=== PATIENT | female | born 1950 | race Caucasian/White ===

== ENCOUNTER 2018-02-27 04:51 | Emergency (ER) | payer MEDICARE, BC, SELFPAY ==
[2018-02-27 04:53] VITALS: BP 152/82; PULSE 88; RESP 16; TEMP 37; O2SAT 96; BMI 29.1
[2018-02-27 05:39] LABS: Glucose, Dipstick Normal (Normal); Ketone-Dipstick Negative (Negative); Leukocyte Esterase-Dipstick 500 /ul (Negative); Mucous, Urine 0 SEEN /hpf (<or=2+); Nitrite-Dipstick Positive (Negative); Occult Blood-Urine 250 /ul (Negative); Protein-Dipstick 100 mg/dl (Negative); Specific Gravity, Urine 1.015 (1.002-1.030); Squamous Epithelial Cells - UA 0 SEEN /hpf (5-10); Urine Clarity Sl. Cloudy (Clear); Urine Urobilinogen 8 mg/dl (Normal)
--- NOTE | 2018-02-27 05:39 | ED.VISSUMM ---
- ER Visit Summary Date of Service: 02/27/18 Chief Complaint: Dysuria History of Present Illness: The patient is a 67 F who presents for 2 days of dysuria. Patient began having dysuria, frequency and urgency 2 days ago. She is now also noting hematuria. She denies fever, back pain, abdominal pain, nausea or vomiting. No vaginal bleeding or discharge. Patient denies remembering ever having a UTI before. She has no medical problems and is on no medications. She has been taking Tylenol, cranberry supplements, and Azo without improvement of her symptoms. She does not smoke. Physical Examination: Vital signs: afebrile, hemodynamically stable, no hypoxia on room air General: well nourished, well developed, in no distress Skin: warm, dry, no rash, no pallor HEENT: normocephalic and atraumatic; PERRL, EOMI, moist mucous membranes Cardiovascular: regular rate and rhythm without murmurs, no peripheral edema, 2+ pulses all distal extremities Respiratory: No increased work of breathing, lungs are clear to auscultation bilaterally, no rales, rhonchi or wheezing Abdominal: Abdomen is soft, nontender with normoactive bowel sounds, no guarding or rebound, no masses, no suprapubic tenderness MSK: Moves all extremities, no deformities, normal strength Neuro: Awake and alert, oriented ?4. No facial droop, sensation and motor function intact and symmetric Test Results: Abnormal Lab Results 02/27/18 05:06 Urine Color SEE COMMENT BELOW Urine Clarity Sl. Cloudy Urine pH 6.0 Ur Specific [place] 1.015 Urine Protein 100 H Urine Glucose (UA) Normal Urine Ketones Negative Urine Occult Blood 250 H Urine Nitrite Positive H Urine Bilirubin 3 H Urine Urobilinogen 8 H Ur Leukocyte Esterase 500 H Urine RBC 25-50 SEEN Urine WBC >100 SEEN Ur Squamous Epith Cells 0 SEEN Urine Bacteria RARE Urine Mucus 0 SEEN Medications Given Discontinued Medications Cephalexin (Keflex) 500 mg PO X1 ONE Stop: 02/27/18 06:00 Emergency Department Course and Treatment: Patient's presentation is concerning for acute cystitis. Urinalysis was performed. It was positive for urinary tract infection. Patient had no other symptoms or findings on exam that would be concerning for pyelonephritis. Patient was placed on Keflex. Culture pending. Patient discharged home. Treatment Plan: [] Disposition: [] Impression: Acute cystitis This note was generated with [employer] dictation software. It may contain incorrect words, spelling, and punctuation that were not noted in review of the chart prior to signing ED Disposition - Plan for ED Patient: Disposition: Home or Assisted Living Chief Complaint: Complaint Instructions: ED UTI Cystitis Female Prescriptions: Cephalexin [Keflex] 500 mg PO Q12 #14 cap Referrals: Emerson Dotson DO [Primary Care Provider] - 3-5 Days if not improving Additional Instructions: Take the entire seven days of antibiotic as prescribed unless told to stop by your doctor. If you have any worsening of your condition or any new concerning symptoms, please return immediately to the emergency department for another evaluation.
[2018-02-27 05:40] LABS: Color, Urine SEE COMMENT BELOW (Yellow); Urine Bilirubin Dipstick 3 mg/dL (Negative)
[2018-02-27 05:53] LABS: Red Blood Cells-Urine 25-50 SEEN /hpf (0-5); White Blood Cells >100 SEEN /hpf (0-5)
[2018-02-27 05:57] LABS: Bacteria RARE /hpf (None Seen)
--- NOTE | 2018-02-27 05:58 | ED.DEP ---
ED Disposition - Plan for ED Patient: Disposition: Home or Assisted Living Chief Complaint: Complaint Instructions: ED UTI Cystitis Female Prescriptions: Cephalexin [Keflex] 500 mg PO Q12 #14 cap Referrals: Emerson Dotson DO [Primary Care Provider] - 3-5 Days if not improving Additional Instructions: Take the entire seven days of antibiotic as prescribed unless told to stop by your doctor. If you have any worsening of your condition or any new concerning symptoms, please return immediately to the emergency department for another evaluation.
[2018-02-27] MEDS: Cephalexin 250 MG Capsule 500 MG PO (06:08)
[2018-02-27 06:10] VITALS: BP 122/70; PULSE 74; RESP 16; O2SAT 98
== END 2018-02-27 06:11 | disposition home or self-care (01) ==
PROVIDERS: Emergency Provider Emergency Medicine; Family Provider Family Medicine; PCP Family Medicine
DX: N30.01 Acute cystitis with hematuria (principal)
CPT/HCPCS: 81001; 87086; 87088; 87186; 99283

== ENCOUNTER → 2020-11-25 13:25 | Outpatient (CLI) | payer MEDICARE, BC, SELFPAY | PROVIDERS: PCP Family Medicine; Referring Provider Family Medicine; Visit Provider Family Medicine | DX: Z20.828 Contact with and (suspected) exposure to other viral communicable diseases (principal) | CPT/HCPCS: 87635; U0005; U0003 ==

== ENCOUNTER → 2023-02-15 | Outpatient (CLI) | payer MEDICARE, OTHER, SELFPAY | END | disposition home or self-care (01) | PROVIDERS: PCP Family Medicine; Referring Provider Physician Assistant Surgical; Visit Provider Physician Assistant Surgical | DX: N39.0 Urinary tract infection, site not specified (principal) | CPT/HCPCS: 87077; 87086; 87088; 87186 ==

== ENCOUNTER → 2023-06-19 | Outpatient (CLI) | payer MEDICARE, OTHER, SELFPAY | END | disposition home or self-care (01) | LOC: LABSPEC 10:11 | PROVIDERS: PCP Family Medicine; Referring Provider Physician Assistant; Visit Provider Physician Assistant | DX: N39.0 Urinary tract infection, site not specified (principal) | CPT/HCPCS: 87086; 87088 ==

== ENCOUNTER → 2023-11-30 | Outpatient (CLI) | payer MEDICARE, OTHER, SELFPAY | END | disposition home or self-care (01) | LOC: LABSPEC 14:32 | PROVIDERS: PCP Family Medicine; Visit Provider Physician Assistant | DX: N39.0 Urinary tract infection, site not specified (principal) | CPT/HCPCS: 87086; 87088 ==

== ENCOUNTER → 2024-04-13 | Outpatient (CLI) | payer MEDICARE, OTHER, SELFPAY | END | disposition home or self-care (01) | LOC: LABSPEC 16:57 | PROVIDERS: PCP Family Medicine; Visit Provider Physician Assistant | DX: R30.0 Dysuria (principal) | CPT/HCPCS: 87086; 87088 ==

== ENCOUNTER → 2024-06-01 | Outpatient (CLI) | payer MEDICARE, OTHER, SELFPAY ==
--- NOTE | 2024-06-01 15:51 | US_ITS ---
PROCEDURE: KIDNEY AND BLADDER 06/01/2024 REASON FOR EXAM: UTI TECHNIQUE: Bilateral renal ultrasound. COMPARISON: None FINDINGS: Kidneys: Normal in size, position and shape. [place]: Mild left-sided hydronephrosis. Cysts or Masses: None Other: None RIGHT Kidney Size: 11.6 x 5.2 x 4.9 cm Cortical Thickness (if discernible): 1.0 (>6mm is normal) LEFT Kidney Size: 11.2 x 5.1 x 5.4 cm Cortical Thickness (if discernible): 1.0 (>6mm is normal) The distended urinary bladder volume was measured at 124.3 mL. Postvoid volume was 9.6 mL. Bladder wall thickness: 2.7 mm. Bilateral ureteral jets were seen. US/Kidney and Bladder IMPRESSION: Mild left-sided hydronephrosis. Reading Location: [place] [id number]
== END | disposition home or self-care (01) ==
LOC: US 15:45
PROVIDERS: PCP Family Medicine; Referring Provider Urology; Visit Provider Urology
DX: N39.0 Urinary tract infection, site not specified (principal)
CPT/HCPCS: 76770

== ENCOUNTER → 2024-06-18 | Outpatient (CLI) | payer MEDICARE, OTHER, SELFPAY ==
--- NOTE | 2024-06-18 15:00 | CT_ITS ---
PROCEDURE: CT ABD/PELVIS W/WO CONTRAST 06/18/2024 REASON FOR EXAM: HYDRONEPHROSIS TECHNIQUE: Triple phase CT imaging of the abdomen and pelvis was obtained with and without intravenous contrast. Coronal and Sagittal reconstruction series were provided. PATIENT PREPARATION: Per protocol ORAL CONTRAST TYPE: None. CONTRAST: Isovue-300 VOLUME: 100 mL One or more dose reduction techniques were used (e.g., Automated exposure control, adjustment of the mA and/or kV according to patient size, use of iterative reconstruction technique. RADIATION DOSE SUMMARY: CTDlvol: 75 mGy DLP: 5000 mGycm COMPARISON: Renal ultrasound 06/01/2024. FINDINGS: Lung bases: Small sub-5 mm bilateral pulmonary nodules (for example within the right lower lobe series 3, image 12). The heart is normal in size with trace pericardial effusion. Coronary artery calcifications. Liver: The liver is normal in size with small hepatic cyst. The major portal veins are patent. No biliary ductal dilation. Gallbladder: No radiopaque stones within the gallbladder. Spleen: Normal size. Pancreas: The pancreas is unremarkable. Adrenals: Left adrenal gland thickening/small mass compatible with adenoma. Kidneys: Nonobstructing bilateral renal calculi. Small bilateral renal cysts and parapelvic cysts. No hydronephrosis. Contrast opacifies the bilateral renal collecting systems and urinary bladder on delayed imaging. Bladder: Minimally distended and unremarkable. Reproductive Organs: Mild thickening of the endometrium, measuring approximately 0.8 cm. Normal uterine size and contour. Ovaries are unremarkable. Bowel: The bowel loops are normal in caliber. No ascites or pneumoperitoneum. Normal appendix. Mild distal colonic diverticulosis. Lymph nodes: No suspicious lymph node enlargement. Vasculature: Moderate atherosclerotic plaque throughout the aortoiliac vessels. Bones: Thoracolumbar spondylosis. Chronic fracture deformity or heterotopic ossification along the left ischial tuberosity. Sclerotic lesion within the left inferior sacral body, likely an osteochondroma. CT/CT Abd/Pelvis W/WO Contrast IMPRESSION: 1. No hydronephrosis. Nonobstructing bilateral renal calculi. 2. Mild endometrial thickening, measuring 0.8 cm. Correlation with patient's s ymptoms is recommended and if clinically indicated, pelvic ultrasound could be obtained. 3. Small bilateral pulmonary nodules, likely noncalcified granulomas or scarrin g. If patient is high risk, optional CT chest in 12 months could be obtained to evaluate for stability. Reading Location: [id number]
== END | disposition home or self-care (01) ==
LOC: CT 14:38
PROVIDERS: PCP Family Medicine; Referring Provider Urology; Visit Provider Urology
DX: N13.30 Unspecified hydronephrosis (principal)
CPT/HCPCS: 74178; Q9967; A4216

== ENCOUNTER → 2024-06-24 | Outpatient (CLI) | payer MEDICARE, OTHER, SELFPAY ==
--- NOTE | 2024-06-24 14:54 | RAD_ITS ---
PROCEDURE: ABDOMEN SINGLE VIEW 06/24/2024 REASON FOR EXAM: KUB- KIDNEY STONE TECHNIQUE: Single view abdomen. 2 total images to include the entire abdomen and pelvis FINDINGS: Small calcification seen over the upper pole of the right renal shadow may represent renal stone. Bowel gas pattern appears nonspecific. Visualized lung bases appear clear. Right hip osteoarthrosis. Heterotopic bone formation left hip. Lower lumbar facet degenerative change RAD/Abdomen Single View IMPRESSION: Small calcification seen over the upper pole of the right renal shadow may repr esent renal stone. Reading Location: [id number]
== END | disposition home or self-care (01) ==
LOC: MTRAD 14:53
PROVIDERS: PCP Family Medicine; Referring Provider Urology; Visit Provider Urology
DX: N20.0 Calculus of kidney (principal)
CPT/HCPCS: 74018

== ENCOUNTER → 2024-06-26 | Outpatient (CLI) | payer MEDICARE, OTHER, SELFPAY | END | disposition home or self-care (01) | LOC: LABSPEC 11:30 | PROVIDERS: PCP Family Medicine; Referring Provider Obstetrics & Gynecology; Visit Provider Obstetrics & Gynecology | DX: Z12.4 Encounter for screening for malignant neoplasm of cervix (principal) | CPT/HCPCS: 87624; 88175; G0145 ==

== ENCOUNTER → 2024-06-29 | Outpatient (CLI) | payer MEDICARE, OTHER, SELFPAY ==
--- NOTE | 2024-06-29 16:25 | US_ITS ---
PROCEDURE: PELVIC (NON ) 06/29/2024 REASON FOR EXAM: ENDOMETRIAL THICKENING Patient is postmenopausal. TECHNIQUE: Transabdominal pelvic ultrasound COMPARISON: None FINDINGS: Measurements: Uterus: 7.4 cm x 4 cm x 2.7 cm with a volume of 42.4 mL Endometrial Thickness: 7 mm. It is hyperechoic. Right Ovary: Not visualized. Left Ovary: Not visualized. Uterus: Normal size, myometrial echotexture, and contour. Endometrium: Endometrium measures 7 mm. This is abnormal for the postmenopausal state. Clinical correlation recommended. Right ovary: Not visualized. Left ovary: Not visualized. Other: No large pelvic mass identified. US/Pelvic (Non ) IMPRESSION: Endometrium is thickened measuring 7 mm. Clinical correlation recommended. Reading Location: [id number]
== END | disposition home or self-care (01) ==
PROVIDERS: PCP Family Medicine; Referring Provider Urology; Visit Provider Urology
DX: R93.89 Abnormal findings on diagnostic imaging of other specified body structures (principal)
CPT/HCPCS: 76856

== ENCOUNTER → 2024-10-21 | Outpatient (CLI) | payer MEDICARE, OTHER, SELFPAY ==
--- NOTE | 2024-10-21 09:52 | STEWCON_ITS ---
Reason For Study Reason For Study: ABN EKG, CAD Stress Results Protocol: ANGELO WITH DEFINITY Maximum Predicted HR: 148 bpm Target HR: 126 bpm % Maximum Predicted HR: 92 % DurationHeart Rate Stage (mm:ss) (bpm) BP Comment BASELINE 68 132/804 CC DEFINITY STAGE 1 3:00 115 184/80 STAGE 2 3:00 134 186/82 STAGE 3 0:10 136 / RECOVERY 86 140/89 Stress Duration: 6:10 mm:ss Maximum Stress HR: 136 bpm Baseline Echocardiogram Findings The left ventricular ejection fraction is 65 %. Stress Echo Wall motion Data Resting WM Intermediate WM Stress WM Resting Wall Motion Wall Motion Stress No regional wall motion abnormalities All segments Hyperkinetic. noted. EKG Data Baseline ECG normal sinus rhythm with nonspecific ST changes. Stress ECG with sinus tachycardia. Nondiagnostic for ischemia secondary to baseline abnormalities. Occasional PVCs during exercise and in recovery. ECHO/Stress Test Echo W/Contrast Interpretation Summary The resting left ventricular ejection fraction is 65 %. Postexercise, all wall segments hyperdynamic. Poststress LVEF more than 75%. No regional wall motion abnormality Negative exercise stress echo for ischemia. Stress ECG with sinus tachycardia. Nondiagnostic for ischemia secondary to base line abnormalities. Occasional PVCs during exercise and in recovery. Ordering Physician: Emerson Dotson Referring Physician: Emerson Dotson Performed By: Lorenza Del Cid RDCS
== END | disposition home or self-care (01) ==
LOC: CVS 09:50
PROVIDERS: PCP Family Medicine; Referring Provider Family Medicine; Visit Provider Family Medicine
DX: I25.10 Atherosclerotic heart disease of native coronary artery without angina pectoris (principal); R94.31 Abnormal electrocardiogram [ECG] [EKG]
CPT/HCPCS: 93017; 93350; Q9957; A4216; C8928

== ENCOUNTER 2024-11-05 05:50 | Day surgery (SDC) | payer MEDICARE, OTHER, SELFPAY ==
--- NOTE | 2024-09-10 12:47 | EKG12_ITS ---
Test Reason : PRE OP Blood Pressure : */* mmHG Vent. Rate : 58 BPM Atrial Rate : 58 BPM P-R Int : 140 ms QRS Dur : 80 ms QT Int : 436 ms P-R-T Axes : 58 15 33 degrees QTcB Int : 428 ms Sinus bradycardia Possible Left atrial enlargement Nonspecific ST abnormality Abnormal ECG Confirmed by VINCENT QURESHI, ORTIZ ([id number]), photographic editor JAIMIE GARCIA ([id number]) on 09/11/2024 1:18:27 PM Referred By: Kaylyn Egan Confirmed By: ORTIZ KAUR MD
[2024-09-10 13:29] LABS: Hematocrit 42.1 % (37-47); Hemoglobin 13.9 g/dL (12.0-15.0); Mean Corp Hgb Conc 33.0 g/dL (32-36); Mean Corpuscular Volume 83.9 fL (81-99); Mean Platelet Vol. 10.5 fl (6.2-12.0); Platelet Count 236 K/mm3 (150-450); RBC Distribution Width CV 13.6 % (11.6-14.6); RBC Distribution Width SD 41.9 fl (35.1-43.9); Red Blood Count 5.02 M/mm3 (4.2-5.4); White Blood Count 8.3 K/mm3 (4.4-11.0)
[2024-09-10 14:11] LABS: Anion Gap 11 (5-15); BUN 16 mg/dL (4-19); BUN/Creat Ratio 25.6 RATIO (10-20); Calcium,Total 9.8 mg/dL (7.6-11.0); Carbon Dioxide 24.2 mmol/L (21.0-32.0); Chloride 102 mmol/L (98-108); Glucose 111 mg/dL (70-99); Potassium 4.6 mmol/L (3.3-5.1)
--- NOTE | 2024-09-10 19:16 | PAT.ANESEVAL ---
Pre-Assessment Diagnosis/Proposed Procedure Planned Operative Procedure(s): HYSTEROSCOPY D&C PER DR PAYTON RIGHT ESWL POSS CYSTO WITH RETROGRADES PER DR LUCAS Anesthesia History Anesthesia History - occupational therapy assist: Anesthesia History - occupational therapy assist Hx Hospitalization No 09/10/24 09:08 Any Problems With Anesthesia No 09/10/24 09:08 Cholinesterase deficiency No 09/10/24 09:08 You/Your Family Experience No 09/10/24 09:08 fever (hyperthermia) with Relationship Recent Exposure to Contagious Disease Does patient have nerve No 09/10/24 09:08 stimulator Patient instructed to have device shut off --Does patient have Pacemaker or ICD? When Was Last Pacemaker Check QUESTION #4 FULL TEXT: You/Your Family Experience fever (hyperthermia) with Anesthesia Last Oral Intake Last Oral intake: Last Oral Intake NPO since Meds taken in AM with sips of water? Meds patient instructed to take am of surgery PONV PONV - occupational therapy assist: PONV - occupational therapy assist Female Yes 09/10/24 09:08 HX of Motion Sickness No 09/10/24 09:08 HX of N/V After Surgery No 09/10/24 09:08 Non-Smoker Yes 09/10/24 09:08 Duration of Surgery greater Yes 09/10/24 09:08 than 60 minutes Number of Risk Factors 3 09/10/24 09:08 PONV Score Moderate Risk 09/10/24 09:08 Height & Weight Height & Weight: Anesthesia: Height & Weight Height 5 ft 7 in 06/26/24 09:15 Respiratory Assessment Respiratory Assessment - occupational therapy assist: Respiratory Tract Infection Hx - occupational therapy assist Hx Respiratory Tract Infection No 09/10/24 09:08 STOP Sleep Apnea STOP Sleep Apnea - occupational therapy assist: STOP Sleep Apnea - occupational therapy assist Hx Hypertension No 09/10/24 09:08 Hx Sleep Apnea No 09/10/24 09:08 CPAP BIPAP Do you snore loudly (louder No 09/10/24 09:08 than talking or can be heard Do you often feel tired/ Yes 09/10/24 09:08 fatigued/ sleepy during daytime? Has anyone observed you stop No 09/10/24 09:08 breathing during sleep? STOP Results Negative 09/10/24 09:08 QUESTION #5 FULL TEXT : Do you snore loudly (louder than talking or can be heard through closed doors)? 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 Specify any problems Hx of Preganancy in last 3 No 09/10/24 09:08 Months Nurse Filling Out Transfusion DSCHRIBER 09/10/24 09:08 & Questions: Date: 09/10/24 09/10/24 09:08 Time: 09:10 09/10/24 09:08 Patient unable to answer at this time (ie. confused, unrespo /Reproduction History /Reproductive History - occupational therapy assist: /Reproductive Hx- occupational therapy assist Hx Now No 09/10/24 09:08 Gestational Age (in weeks): EDC: Hx Hx Para Hx Section SAB No 09/10/24 09:08 PFSH Medical History Wears glasses Post-menopausal Bladder disease Back pain Gastric reflux Non-smoker Home Medications ?Medication ?Instructions ?Recorded ?Last Taken ?Type estradiol 0.01% (0.1 mg/gram) 1 g vaginal 3XW 06/26/24 Unknown History vaginal cream solifenacin 5 mg tablet 5 mg PO QDAY 06/26/24 Unknown History Lactobacillus acidophilus 250 500 mmu cells PO DAILY 09/10/24 Unknown History million cell capsule (Probiotic Acidophilus) ascorbic acid (vitamin C) 500 mg 500 mg PO DAILY 09/10/24 Unknown History chewable tablet (C-500) Allergy/AdvReac Type Severity Reaction Status Date / Time No Known Allergies Allergy Verified 09/10/24 09:05 Family History Mother Heart disease Father History of kidney cancer Surgical History (Updated 09/10/24 @ 09:15 by Madeline Mercado) Hx of tonsillectomy Social History (Updated 06/26/24 @ 10:47 by Julia Teixeira) number of children: 0 Smoking Status: Never smoker alcohol intake: current Alcohol type: wine seatbelt use: always do you feel safe at home: Yes additional social history: Audit: Pertinent Findings Pertinent Findings EKG Perinent findings: 09/10/24: Sinus bradycardia with nonspecific ST abnormality Recommendation Anesthesia Recommendation Anesthesia recommendation: OPTIMIZED for anesthesia
--- NOTE | 2024-10-28 16:20 | PAT.ANESEVAL ---
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 When Was Last Pacemaker Check QUESTION #4 FULL TEXT: You/Your Family Experience fever (hyperthermia) with Anesthesia Last Oral Intake Last Oral intake: Last Oral Intake NPO since Meds taken in AM with sips of water? 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 Female Yes 10/28/24 08:55 HX of Motion Sickness No 10/28/24 08:55 HX of N/V After Surgery No 10/28/24 08:55 Non-Smoker Yes 10/28/24 08:55 Duration of Surgery greater Yes 10/28/24 08:55 than 60 minutes Number of Risk Factors 3 10/28/24 08:55 PONV Score Moderate Risk 10/28/24 08:55 Height & Weight Height & Weight: Anesthesia: Height & Weight Height 5 ft 7 in 10/26/24 09:03 Respiratory Assessment Respiratory Assessment - supervisor core shop: Respiratory Tract Infection Hx - supervisor core shop Hx Respiratory Tract Infection No 10/28/24 08:55 STOP Sleep Apnea STOP Sleep Apnea - supervisor [employer]: STOP Sleep Apnea - supervisor core shop Hx Hypertension Yes: CONTROLLED WITH MED 10/28/24 08:55 Hx Sleep Apnea No 10/28/24 08:55 CPAP BIPAP Do you snore loudly (louder No 10/28/24 08:55 than talking or can be heard Do you often feel tired/ Yes 10/28/24 08:55 fatigued/ sleepy during daytime? Has anyone observed you stop No 10/28/24 08:55 breathing during sleep? STOP Results Positive 10/28/24 08:55 QUESTION #5 FULL TEXT : Do you snore loudly (louder than talking or can be heard through closed doors)? 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 Specify any problems Hx of Preganancy in last 3 No 10/28/24 08:55 Months Nurse Filling Out Transfusion DSCHRIBER 10/28/24 08:55 & Questions: Date: 10/28/24 10/28/24 08:55 Time: 08:55 10/28/24 08:55 Patient unable to answer at this time (ie. confused, unrespo /Reproduction History /Reproductive History - supervisor core shop: /Reproductive Hx- supervisor core shop Hx Now No 10/28/24 08:55 Gestational Age (in weeks): EDC: Hx Hx Para Hx Section SAB No 10/28/24 08:55 PFSH Medical History Hypertension History of stress test Vaginal atrophy Wears glasses Post-menopausal Bladder disease Back pain Gastric reflux Non-smoker Home Medications ?Medication ?Instructions ?Recorded ?Last Taken ?Type estradiol 0.01% (0.1 mg/gram) 1 g vaginal 3XW 06/26/24 Unknown History vaginal cream solifenacin 5 mg tablet 5 mg PO QDAY 06/26/24 Unknown History Lactobacillus acidophilus 250 500 mmu cells PO DAILY 09/10/24 Unknown History million cell capsule (Probiotic Acidophilus) ascorbic acid (vitamin C) 500 mg 500 mg PO DAILY 09/10/24 Unknown History chewable tablet (C-500) amlodipine 10 mg tablet 10 mg PO QDAY 10/28/24 Unknown History Allergy/AdvReac Type Severity Reaction Status Date / Time No Known Allergies Allergy Verified 10/28/24 08:53 Family History Mother Heart disease Father History of kidney cancer Surgical History Hx of tonsillectomy Social History number of children: 0 Smoking Status: Never smoker alcohol intake: current Alcohol type: wine substance use type: does not use what type of physical activity do you participate in: none seatbelt use: always do you feel safe at home: Yes additional social history: Audit: Pertinent Findings HISTORY of Pertinent Findings History of Pertinent Findings: EKG Pertinent Findings EKG Perinent findings 09/10/24: Sinus bradycardia 09/10/24 19:[address] abnormality Pertinent Findings EKG Perinent findings: EKG 09/24/2024. Sinus bradycardia. Stress test pertinent findings: Stress echo 10/21/2024. Left ventricular ejection fraction 65%. Negative exercise stress echo for ischemia. Stress EKG with sinus tachycardia. Occasional PVCs during exercise and in recovery. Recommendation Anesthesia Recommendation Anesthesia recommendation: OPTIMIZED for anesthesia
[2024-11-05] VITALS (9 sets, daily range): BP systolic 115–142; BP diastolic 58–79; PULSE 67–77; RESP 16–18; TEMP 36.1–36.6; O2SAT 86–99; BMI 33.8
--- OUTSIDE RECORDS SUMMARY | 2024-11-05 05:53 | XMS RPT_ITS | CCD ---
Author Organization [facility] Care Team Providers Care Fish Header Name Role Phone Dr. Emerson Dotson Primary Care Provider [phone] Dr. Emerson Dotson Referring Provider VALERIE Fuller Attending Provider Dr. Emerson Dotson Primary Care Provider [phone] Dr. Emerson Dotson Referring Provider VALERIE Mcdowell Attending Provider Dr. Emerson Dotson DO Primary Care Provider Dr. Emerson Dotson DO Referring Provider Harshal Mcdowell Attending Provider [phone] Emerson Dotson DO Primary Care Provider Mauri HERNANDEZ, Dr. Norman Referring Provider Harshal Mcdowell Attending Provider [phone] Dr. Kaylyn Egan MD Attending Provider Dr. Kaylyn Egan MD Referring Provider Dr. Debbie Farfan MD Attending Provider Dr. Debbie Farfan MD Referring Provider Dr. Debbie Farfan MD Other Provider Dr. Emerson Dotson DO Primary Care Provider [phone] Jignesh QURESHI, Dr. Patiño Attending Provider Dr. Kaylyn Egan MD Referring Provider Mauri DO, Dr. Norman Referring Provider [phone] Dr. Vesta Flanagan DO Attending Provider Layla QURESHI, Dr. Carrizales Attending Provider Mauri HERNANDEZ, Dr. Norman Primary Care Provider Jignesh QURESHI, Dr. Patiño Attending Provider Jignesh QURESHI, Dr. Patiño Referring Provider Mauri HERNANDEZ, Dr. Norman Referring Provider [phone] Mauri HERNANDEZ, Dr. Norman Attending Provider [phone] Tao QURESHI, Dr. Mckenna Attending Provider Vesta Flanagan Consulting Unavailabl e Mauri, Emerson Primary Care Unavailable Kaylyn Egan Referring Unavailable Kaylyn Egan Attending Unavailable Mauri, Emerson Attending Unavailable Mauri, Emerson Primary Care Unavailable Mauri, Emerson Referring Unavailable Bala Burger Attending Unavailable Mauri, Emerson Primary Care Unavailable Mauri, Emerson Primary Care Unavailable Mauri, Emerson Referring Unavailable Harshal Mcdowell Attending Unavailable Mauri, Emerson Primary Care Unavailable Mauri, Emerson Referring Unavailable WyneskiKaylyn Attending Unavailable Mauri, Emerson Primary Care Unavailable Mauri, Emerson Referring Unavailable Tannre Harper Attending Unavailable Mauri, Emerson Primary Care Unavailable Mauri, Emerson Referring Unavailable Kaylyn Egan Attending Unavailable Vesta Flanagan Attending Unavailabl e Mauri, Emerson Primary Care Unavailable Mauri, Emerson Referring Unavailable Mauri, Emerson Primary Care Unavailable Mauri, Emerson Referring Unavailable Helenony, Debbie Attending Unavailable Mauri, Emerson Primary Care Unavailable Kaylyn Egan Referring Unavailable Sofie Rich Attending Unavailabl e Mauri, Emerson Primary Care Unavailable Kaylyn Egan Attending Unavailable Kaylyn Egan Referring Unavailable Debbie Farfan Consulting Unavailable Mauri, Emerson Primary Care Unavailable Kaylyn Egan Attending Unavailable Kaylyn Egan Referring Unavailable Mauri, Emerson Primary Care Unavailable WynesKaylyn moser Attending Unavailable Wyneski, Kaylyn Referring [facility] Unavailable Harshal Mcdowell Attending Unavailable Tanner Harper Attending Unavailable [facility] Primary Care Unavailable [facility] Primary Care Unavailable Kaylyn Egan Attending Unavailable Kaylyn Egan Referring [facility] Unavailable Debbie Farfan Referring Unavailable Debbie Farfan Attending Unavailable Medications Current Medications Medication Drug Class(es) Dates Sig (Normalized) Sig (Original) amLODIPine 10 mg oral tablet (2 sources) Dihydropyridine Calcium Channel Mariana Start: 10-28-2024 take 1 tablet by mouth once daily Amlodipine 10 mg tablet Active 10 mg PO daily October 28, 2024 12:00am ascorbic acid 500 mg chewable tablet (4 sources) Vitamin C Start: 09-10-2024 take 1 tablet by mouth once daily Ascorbic Acid (Vitamin C) (C-500) 500 mg tablet,chewable Active 500 mg PO DAILY September 10, 2024 12:00am estradiol 0.1 mg/ml vaginal cream (7 sources) Estrogen Start: 06-26-2024 Estradiol 0.01 % (0.1 mg/gram) cream Active 1 g VAGINAL 3 TIMES A WEEK June 26, 2024 12:00am lactobacillus acidophilus 1.5 mg oral capsule (4 sources) Start: 09-10-2024 Lactobacillus Acidophilus (Probiotic Acidophilus) 250 million cell capsule Active 500 NMA PO DAILY September 10, 2024 12:00am solifenacin succinate 5 mg oral tablet (7 sources) Cholinergic Muscarinic Antagonist Start: 06-26-2024 take 1 tablet by mouth once daily Solifenacin 5 mg tablet Active 5 mg PO daily June 26, 2024 12:00am Completed/Discontinued Medications Medication Drug Class(es) Dates Sig (Normalized) Sig (Original) acetaminophen 500 mg oral tablet (7 sources) Start: 06-26-2024 End: 09-10-2024 take 1 tablet by mouth every six hours as needed Acetaminophen (Tylenol Extra Strength) 500 mg tablet Discontinued 500 mg PO EVERY 6 HOURS as needed June 26, 2024 12:00am September 10, 2024 9:05am benzonatate 200 mg oral capsule (11 sources) Non-narcotic Antitussive Start: 01-25-2019 End: 07-08-2021 take 1 capsule by mouth three times daily as needed for cough Benzonatate 200 mg capsule Discontinued 200 mg PO THREE TIMES A DAY as needed for cough 30 0 January 25, 2019 1:00am July 08, 2021 9:06am cephalexin 500 mg oral capsule (11 sources) Cephalosporin Antibacterial Start: 02-27-2018 End: 01-25-2019 take 1 capsule by mouth every twelve hours Cephalexin 500 MG capsule Discontinued 500 mg PO EVERY 12 HOURS 14 0 February 27, 2018 1:00am January 25, 2019 10:20am clindamycin 150 mg oral capsule (11 sources) Lincosamide Antibacterial Start: 07-08-2021 End: 11-17-2021 Clindamycin Hcl 150 mg capsule Discontinued NMA PO July 08, 2021 12:00am November 17, 2021 8:28am Start: 07-08-2021 End: 11-17-2021 Clindamycin Hcl Discontinued CAP PO July 08, 2021 12:00am November 17, 2021 8:28am methylPREDNISolone 4 mg oral tablet (11 sources) Corticosteroid Start: 01-25-2019 End: 02-02-2019 take 1 tablet by mouth once Methylprednisolone (Medrol (Ernie)) 4 mg tablets,dose pack Discontinued 0 PO per package directions 21 0 January 25, 2019 1:00am February 02, 2019 5:01pm PO PER PKG DIR nitrofurantoin, macrocrystals 25 mg / nitrofurantoin, monohydrate 75 mg oral capsule (20 sources) Nitrofuran Antibacterial Start: 04-13-2024 End: 04-18-2024 take 1 capsule by mouth every twelve hours at mealtime Nitrofurantoin Monohyd/M-Cryst (Macrobid) 100 mg capsule Discontinued 100 mg PO Q12H 10 5 0 April 13, 2024 1:00am April 17, 2024 1:00am April 18, 2024 1:23am must administer with a meal/food Start: 11-30-2023 End: 12-05-2023 take 1 capsule by mouth every twelve hours at mealtime Nitrofurantoin Monohyd/M-Cryst (Macrobid) 100 mg capsule Discontinued 100 mg PO Q12H 10 5 0 November 30, 2023 12:00am December 04, 2023 12:00am December 05, 2023 12:10am must administer with a meal/food Start: 06-18-2023 End: 06-23-2023 take 1 capsule by mouth every twelve hours at mealtime Nitrofurantoin Monohyd/M-Cryst (Macrobid) 100 mg capsule Discontinued 100 mg PO Q12H 10 5 0 June 18, 2023 12:00am June 22, 2023 12:00am June 23, 2023 12:06am must administer with a meal/food Start: 02-13-2023 End: 02-20-2023 take 1 capsule by mouth every twelve hours at mealtime Nitrofurantoin Monohyd/M-Cryst 100 mg capsule Discontinued 1 NMA PO Q12H 14 7 0 February 13, 2023 1:00am February 19, 2023 1:00am February 20, 2023 1:05am administer with a meal/food; swallow whole; do not open, crush, dissolve , or chew Start: 07-08-2021 End: 07-15-2021 take 1 capsule by mouth every twelve hours at mealtime Nitrofurantoin Monohyd/M-Cryst 100 mg capsule Discontinued 1 NMA PO Q12H 14 7 0 July 08, 2021 12:00am July 14, 2021 12:00am July 15, 2021 12:05am administer with a meal/food; swallow whole; do not open, crush, dissolve , or chew predniSONE 10 mg oral tablet (11 sources) Start: 07-14-2022 End: 02-13-2023 take 4 tablets by mouth once daily, then take 3 tablets by mouth once daily, then take 2 tablets by mouth once daily, then take 1 tablet by mouth once daily Prednisone 10 mg tablet Discontinued 10 mg PO As Directed 30 July 14, 2022 12:00am February 13, 2023 6:00pm 4 tablets daily x3 days, then 3 tablets daily x3 days, then 2 tablets daily x3 days, then 1 tablet daily x3 days Vibegron (7 sources) Start: 06-26-2024 End: 06-26-2024 take 1 tablet by mouth once daily Vibegron (Gemtesa) 75 mg tablet Discontinued 75 mg PO daily June 26, 2024 12:00am June 26, 2024 10:44am Problems Active Problems Problem Classification Problem Date Documented Date Episodic/Chronic Calculus of urinary tract (14 sources) Kidney stone; Translations: [Calculus of kidney] Onset: 09-18-2024 09-18-2024 Episodic Coronary atherosclerosis and other heart disease (1 source) Atherosclerotic heart disease of [place] coronary artery without angina pectoris; Translations: [Atherosclerotic heart disease of [place] coronary artery without angina pectoris] Onset: 10-30-2024 Chronic Essential hypertension (6 sources) Hypertensive disorder; Translations: [Essential (primary) hypertension] 09-14-2024 Chronic Genitourinary symptoms and ill-defined conditions (6 sources) Incontinence; Translations: [Mixed incontinence] 09-14-2024 Chronic Immunizations and screening for infectious disease (11 sources) Contact with and (suspected) exposure to other viral communicable diseases; Translations: [Contact with or suspected exposure to other viral communicable disease] 11-17-2021 Episodic Menopausal disorders (5 sources) Atrophy of vagina; Translations: [Postmenopausal atrophic vaginitis] 09-21-2024 Chronic Other diseases of bladder and urethra (6 sources) Overactive bladder; Translations: [Overactive bladder] 09-14-2024 Chronic Other diseases of bladder and urethra (1 source) Overactive bladder; Translations: [Overactive bladder] Onset: 10-28-2024 Chronic Other screening for suspected conditions (not mental disorders or infectious disease) (20 sources) Endometrium thickened; Translations: [Abnormal findings on diagnostic imaging of other specified body structures] Onset: 07-02-2024 06-26-2024 Chronic Comment on above: endometrial biopsy u nable to be done, US ordered and if thickened needs d and c pap. Other upper respiratory infections (20 sources) Acute upper respiratory infection; Translations: [Acute upper respiratory infection, unspecified] 11-17-2021 Episodic Past or Other Problems Problem Classification Problem Date Documented Da te Episodic/Chronic Genitourinary symptoms and ill-defined conditions (7 sources) Nocturia; Translations: [Nocturia] Onset: 04-24-2024 09-14-2024 Episodic Other diseases of kidney and ureters (1 source) Unspecified hydronephrosis; Translations: [Unspecified hydronephrosis] Onset: 06-20-2024 Episodic Other screening for suspected conditions (not mental disorders or infectious disease) (1 source) Encounter for screening for malignant neoplasm of cervix; Translations: [Encounter for screening for malignant neoplasm of cervix] Onset: 06-30-2024 Episodic Urinary tract infections (20 sources) Urinary tract infectious disease; Translations: [Urinary tract infection, site not specified] Onset: 06-04-2024 07-08-2021 Episodic Results Test Name Value Interpretation Reference Range Facility /Francis 10-28-2024 MR/ZA [facility] [address], [address] [place] [address] OFFICE VISIT Date of Service: 10/28/24 MR#: [id number] Acct: [id number] Name: GERARDO MOLINA Rep #: [id number] : 1950 Provider: Dr. 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 Accompanied by: Self Is patient in pain?: No Allergies No Known Allergies Allergy (Verified 10/28/24 08:53) Medications ???Medication ???Instructions ???Recorded ???Confirmed ???Type estradiol 0.01% (0.1 mg/gram) 1 g vaginal 3XW 06/26/24 10/28/24 History vaginal cream solifenacin 5 mg tablet 5 mg PO QDAY 06/26/24 10/28/24 His tory Lactobacillus acidophilus 250 500 mmu cells PO DAILY 09/10/24 History million cell capsule (Probiotic Acidophilus) ascorbic acid (vitamin C) 500 mg 500 mg PO DAILY 09/10/24 10/28/24 History chewable tablet (C-500) amlodipine 10 mg tablet 10 mg PO QDAY 10/28/24 10/28/24 Hi story Have you fallen in the past year?: No PFSH Medical History Hypertension History of stress test Vaginal atrophy Wears glasses Post-menopausal Bladder disease Back pain Gastric reflux Non-smoker Surgical History Hx of tonsillectomy Family History Mother Heart disease Father History of kidney cancer Social History number of children: 0 Smoking Status: Never smoker alcohol intake: current Alcohol type: wine substance use type: does not use what type of physical activity do you participate in: none seatbelt use: always do you feel safe at home: Yes additional social history: HPI HPI Urology Chief Complaint: preoperatove visit with petrarne culture and consent Details: GERARDO MOLINA, is a 74 F. The patient is here for preoperative history and physical prior to right renal extracorporeal shockwave lithotripsy, possible cystoscopy with right retrograde pyelogram, right ureteral stent insertion. There are no new symptoms since the last visit. The procedure, recovery and expectations were explained. The risks, benefits and alternatives were discussed, including but not limited to, the risks of anesthesia, bleeding, infection, injury, pain and the need for further intervention. We have discussed the risk of exposure to and/or potential harm posed by the COVID-19 virus with having a surgery/procedure at this time. A joint decision was made at this time to proceed with the scheduled surgery/procedure as indicated on the consent form. She is not sure how happy she is with the solifenacin and we decided to treat the stone and see how she does. ROS Const Constitutional: No chills, fatigue, fever(s), headache(s), night sweats, weakness, weight change, abnormal sleep pattern or change in appetite Eyes Eyes: No change in vision ENT ENT: No headache(s) or dry mouth Resp Respiratory: No cough, chest congestion, shortness of breath or wheezing Cardio Cardiology: Positive for other (No chest pain.); No shortness of breath, irregular heart rhythm or lightheadedness Gastro GI: Positive for other (No nausea.); No abdominal pain, change in bowel habits, constipation, diarrhea or vomiting Musc Musculoskeletal: No abnormal gait Skin Skin: No yellowing of the eye, lesions, itchy eyes, rash or skin ulcer Neuro Neurology: No abnormal gait, confusion, dizziness, weakness, headache(s) or memory loss Psych Psychiatric: No abnormal sleep pattern, No change in appetite, No confusion and No memory loss Endo Endocrine: No fatigue, increased thirst/drinking or weight change Aller/Imm Allergy/Immunologic: No itchy eyes or wheezing Jose Martin/Lymp Hematologic/Lymphatic: No easy bleeding, easy bruising or enlarged lymph nodes Exam Const General: cooperative, healthy appearing, comfortable and no acute distress [facility] Head: normocephalic and atraumatic Ears: hearing grossly normal bilaterally and external ears normal Nose: external nose normal Eyes General: appearance normal, both eyes and all related structures Neck Neck: normal visual inspection and trachea midline Chest Chest palpation inspection: normal inspection of the chest Resp Effort Inspection: normal respiratory effort, able to speak in complete sentences and symmetric chest movement Cardio Rate: regular rate GI Inspection: normal to inspection Pa (more content not included)... Normal [facility] MR/PAT.[facility] 10-28-2024 MR/PAT.[facility] Medical Records Department [address] [place] [address] PAT - Anesthesia 10/28/24 1620 MR#: [id number] Acct: [id number] Name: GERARDO MOLINA Rep #: [id number] : 1950 74 From: Ok Qureshi MD PCP: Dr. 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 When Was Last Pacemaker Check QUESTION #4 FULL TEXT: You/Your Family Experience fever (hyperthermia) with Anesthesia Last Oral Intake Last Oral intake: Last Oral Intake NPO since Meds taken in AM with sips of water? Meds patient instructed to take am of surgery PONV PONV - product support technician: PONV - product support technician Female Yes 10/28/24 08:55 HX of Motion Sickness No 10/28/24 08:55 HX of N/V After Surgery No 10/28/24 08:55 Non-Smoker Yes 10/28/24 08:55 Duration of Surgery greater Yes 10/28/24 08:55 than 60 minutes Number of Risk Factors 3 10/28/24 08:55 PONV Score Moderate Risk 10/28/24 08:55 Height Weight Height Weight: Anesthesia: Height Weight Height 5 ft 7 in 10/26/24 09:03 Respiratory Assessment Respiratory Assessment - product support technician: Respiratory Tract Infection Hx - product support technician Hx Respiratory Tract Infection No 10/28/24 08:55 STOP Sleep Apnea STOP Sleep Apnea - product support technician: STOP Sleep Apnea - product support technician Hx Hypertension Yes: CONTROLLED WITH MED 10/28/24 08:55 Hx Sleep Apnea No 10/28/24 08:55 CPAP BIPAP Do you snore loudly (louder No 10/28/24 08:55 than talking or can be heard Do you often feel tired/ Yes 10/28/24 08:55 fatigued/ sleepy during daytime? Has anyone observed you stop No 10/28/24 08:55 breathing during sleep? STOP Results Positive 10/28/24 08:55 QUESTION #5 FULL TEXT : Do you snore loudly (louder than talking or can be heard through closed doors)? 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 Specify any problems Hx of Preganancy in last 3 No 10/28/24 08:55 Months Nurse Filling Out Transfusion DSCHRIBER 10/28/24 08:55 Questions: Date: 10/28/24 10/28/24 08:55 Time: 08:55 10/28/24 08:55 Patient unable to answer at this time (ie. confused, unrespo /Reproduction History /Reproductive History - product support technician: /Reproductive Hx- product support technician Hx Now No 10/28/24 08:55 Gestational Age (in weeks): EDC: Hx Hx Para Hx Section SAB No 10/28/24 08:55 PFSH Medical History Hypertension History of stress test Vaginal atrophy Wears glasses Post-menopausal Bladder disease Back pain Gastric reflux Non-smoker Home Medications ???Medication ???Instructions ???Recorded ???Last Taken ???Type estradiol 0.01% (0.1 mg/gram) 1 g vaginal 3XW 06/26/24 Unknown H istory vaginal cream solifenacin 5 mg tablet 5 mg PO QDAY 06/26/24 Unknown Hist ory Lactobacillus acidophilus 250 500 mmu cells PO DAILY 09/10/24 Un known History million cell capsule (Probiotic Acidophilus) ascorbic acid (vitamin C) 500 mg 500 mg PO DAILY 09/10/24 Unknown H istory chewable tablet (C-500) amlodipine 10 mg tablet 10 mg PO QDAY 10/28/24 Unknown His tory Allergy/AdvReac Type Severity Reaction Status Date / Time No Known Allergies Allergy Verified 10/28/24 08:53 Family History ... Normal [facility] Stress Test Echo W/Contrasto n 10-21-2024 Stress Test Echo W/Contrast [facility] [address] [place] [address] Stress Test Echo W/Contrast MR#: [id number] Acct: [id number] Name: GERARDO MOLINA Rep #: [id number] : 1950 74 From: Bala Burger MD Primary Care: Dr. Emerson Dotson DO Status: REG CLI Ordering Dr: Emerson Dotson DO Sex: F C Reason For Study Reason For Study: ABN EKG, CAD Stress Results Protocol: ANGELO WITH DEFINITY Maximum Predicted HR: 148 bpm Target HR: 126 bpm % Maximum Predicted HR: 92 % DurationHeart Rate Stage (mm:ss) (bpm) BP Comment BASELINE 68 132/804 CC DEFINITY STAGE 1 3:00 115 184/80 STAGE 2 3:00 134 186/82 STAGE 3 0:10 136 / RECOVERY 86 140/89 Stress Duration: 6:10 mm:ss Maximum Stress HR: 136 bpm Baseline Echocardiogram Findings The left ventricular ejection fraction is 65 %. Stress Echo Wall motion Data Resting WM Intermediate WM Stress WM Resting Wall Motion Wall Motion Stress No regional wall motion abnormalities All segments Hyperkinetic. noted. EKG Data Baseline ECG normal sinus rhythm with nonspecific ST changes. Stress ECG with sinus tachycardia. Nondiagnostic for ischemia secondary to baseline abnormalities. Occasional PVCs during exercise and in recovery. ECHO/Stress Test Echo W/Contrast Interpretation Summary The resting left ventricular ejection fraction is 65 %. Postexercise, all wall segments hyperdynamic. Poststress LVEF more than 75%. No regional wall motion abnormality Negative exercise stress echo for ischemia. Stress ECG with sinus tachycardia. Nondiagnostic for ischemia secondary to baseline abnormalities. Occasional PVCs during exercise and in recovery. Ordering Physician: Emerson Dotson Referring Physician: Emerson Dotson Performed By: Lorenza Del Cid [facility] 10/21/24 1223 Date Bala Burger MD CC: Dr. Emerson Dotson, Date Dictated: 10/21/24 1007 Date Transcribed: 10/21/24 1223 Statistical Methods Professor: Signed [facility] Stress echocardiogram study reportOrdered By: Bala Burger on 10-21-2024 Stress cardiac echo study report [facility] [address] [place] [address] Stress Test Echo W/Contrast MR#: [id number] Acct: [id number] Name: GERARDO MOLINA Rep #: [id number] : 1950 74 From: Bala Burger MD Primary Care: Dr. Emerson Dotson DO Statu s: REG CLI Ordering Dr: Emerson Dotson DO Sex: F C Reason For Study Reason For Study: ABN EKG, CAD Stress Results Protocol: ANGELO WITH DEFINITY Maximum Predicted HR: 148 bpm Target HR: 126 bpm % Maximum Predicted HR: 92 % DurationHeart Rate Stage (mm:ss) (bpm) BP Comment BASELINE 68 132/804 CC DEFINITY STAGE 1 3:00 115 184/80 STAGE 2 3:00 134 186/82 STAGE 3 0:10 136 / RECOVERY 86 140/89 Stress Duration: 6:10 mm:ss Maximum Stress HR: 136 bpm Baseline Echocardiogram Findings The left ventricular ejection fraction is 65 %. Stress Echo Wall motion Data Resting WM Intermediate WM Stress WM Resting Wall Motion Wall Motion Stress No regional wall motion abnormalities All segments Hyperkinetic. noted. EKG Data Baseline ECG normal sinus rhythm with nonspecific ST changes. Stress ECG with sinus tachycardia. Nondiagnostic for ischemia secondary to baseline abnormalities. Occasional PVCs during exercise and in recovery. ECHO/Stress Test Echo W/Contrast Interpretation Summary The resting left ventricular ejection fraction is 65 %. Postexercise, all wall segments hyperdynamic. Poststress LVEF more than 75%. No regional wall motion abnormality Negative exercise stress echo for ischemia. Stress ECG with sinus tachycardia. Nondiagnostic for ischemia secondary to baseline abnormalities. Occasional PVCs during exercise and in recovery. Ordering Physician: Emerson Dotson Referring Physician: Emerson Dotson Performed By: Lorenza Del Cid RDCS 10/21/24 1223 Date _ Bala Burger MD CC: Dr. Emerson Dotson, DO ~ Date Dictated: 10/21/24 1007 Date Transcribed: 10/21/24 1223 Statistical Methods Professor: Signed [facility] Work Phone: Laboratory - Chemistry and C hemistry - challengeOrdered By: Kaylyn Egan on 09-18-2024 Bilirubin Ql (U) Negative [facility] Glucose Ql (U) Negative [facility] Ketones Ql (U) Negative [facility] pH (U) 5 [pH] [facility] Specific gravity (U) [Rel density] 1.020 [facility] Urobilinogen (U) [Mass/Vol] Negative [facility] Laboratory - Hematology and Cell countsOrdered By: Kaylyn Egan on 09-18-2024 Hemoglobin Ql (U) Negative [facility] Laboratory - UrinalysisOrder ed By: Kaylyn Egan on 09-18-2024 Nitrite Ql (U) Negative [facility] Protein Ql (U) Negative [facility] MR/BMSYesenia 09-18-2024 MR/ZA [facility] [address] [place] [address], [address] [place] [address] OFFICE VISIT Date of Service: 09/18/24 MR#: [id number] Acct: [id number] Name: GERARDO MOLINA Rep #: [id number] : 1950 Provider: Dr. 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 Accompanied by: Self Is patient in pain?: No Allergies No Known Allergies Allergy (Verified 09/18/24 14:05) Medications ???Medication ???Instructions ???Recorded ???Confirmed ???Type estradiol 0.01% (0.1 mg/gram) 1 g vaginal 3XW 06/26/24 09/18/24 History vaginal cream solifenacin 5 mg tablet 5 mg PO QDAY 06/26/24 09/18/24 His tory Lactobacillus acidophilus 250 500 mmu cells PO DAILY 09/10/24 History million cell capsule (Probiotic Acidophilus) ascorbic acid (vitamin C) 500 mg 500 mg PO DAILY 09/10/24 09/18/24 History chewable tablet (C-500) Have you fallen in the past year?: No PFSH Medical History Vaginal atrophy Wears glasses Post-menopausal Bladder disease Back pain Gastric reflux Non-smoker Surgical History Hx of tonsillectomy Family History Mother Heart disease Father History of kidney cancer Social History number of children: 0 Smoking Status: Never smoker alcohol intake: current Alcohol type: wine substance use type: does not use what type of physical activity do you participate in: none seatbelt use: always do you feel safe at home: Yes additional social history: HPI HPI Urology Chief Complaint: preoperatove visit with uirne culture and consent Details: GERARDO MOLINA, is a 74 F. The patient is here for preoperative history and physical prior to right renal extracorporal shockwave lithotripsy with possible cystoscopy and right retrograde pyelogram. This will be followed by a Linda Kwon per Dr. Payton. There are no new symptoms since the last visit. She denies any cardiac symptoms today and is aware that her EKG was abnormal. Will be obtaining further information from her primary care physician and cardiology recommendations. She has no evidence of urinary tract infection at this time and no systemic symptoms of infection. The procedure, recovery and expectations were explained. The risks, benefits and alternatives were discussed, including but not limited to, the risks of anesthesia, bleeding, infection, injury, pain and the need for further intervention. We have discussed the risk of exposure to and/or potential harm posed by the COVID-19 virus with having a surgery/procedure at this time. A joint decision was made at this time to proceed with the scheduled surgery/procedure as indicated on the consent form. ROS Const Constitutional: No chills, fatigue, fever(s), headache(s), night sweats, weakness, weight change, abnormal sleep pattern or change in appetite Eyes Eyes: No change in vision ENT ENT: No headache(s) or dry mouth Resp Respiratory: No cough, chest congestion, shortness of breath or wheezing Cardio Cardiology: Positive for other (No chest pain.); No shortness of breath, irregular heart rhythm or lightheadedness Gastro GI: Positive for other (No nausea.); No abdominal pain, change in bowel habits, constipation, diarrhea or vomiting Musc Musculoskeletal: No abnormal gait Skin Skin: No yellowing of the eye, lesions, itchy eyes, rash or skin ulcer Neuro Neurology: No abnormal gait, confusion, dizziness, weakness, headache(s) or memory loss Psych Psychiatric: No abnormal sleep pattern, No change in appetite, No confusion and No memory loss Endo Endocrine: No fatigue, increased thirst/drinking or weight change Aller/Imm Allergy/Immunologic: No itchy eyes or wheezing Jose Martin/Lymp Hematologic/Lymphatic: No easy bleeding, easy bruising or enlarged lymph nodes Exam Const General: cooperative, healthy appearing, comfortable and no acute distress [facility] Head: normocephalic and atraumatic Ears: hearing grossly normal bilaterally and external ears normal Nose: external nose normal Eyes General: appearance normal, both eyes and all related structures Neck Neck: normal visual inspection and trachea midline Chest Chest palpation inspection: normal inspection of the chest Resp Effort Inspection: normal respiratory effort, able to speak in complete sentences and symmetric chest movement Cardio Rate: regular ra (more content not included)... 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: No Is patient in pain?: No Allergies No Known Allergies Allergy (Verified 09/14/24 08:42) Medications ???Medication ???Instructions ???Recorded ???Confirmed ???Type estradiol 0.01% (0.1 mg/gram) 1 g vaginal 3XW 06/26/24 09/14/24 History vaginal cream solifenacin 5 mg tablet 5 mg PO QDAY 06/26/24 09/14/24 His tory Lactobacillus acidophilus 250 500 mmu cells PO DAILY 09/10/24 History million cell capsule (Probiotic Acidophilus) ascorbic acid (vitamin C) 500 mg 500 mg PO DAILY 09/10/24 09/14/24 History chewable tablet (C-500) Is last menstrual period known: No Post menopausal: Yes Patient : No : No PFSH Medical History Wears glasses Post-menopausal Bladder disease Back pain Gastric reflux Non-smoker Surgical History Hx of tonsillectomy Family History Mother Heart disease Father History of kidney cancer Social History number of children: 0 Smoking Status: Never smoker alcohol intake: current Alcohol type: wine seatbelt use: always do you feel safe at home: Yes additional social history: HPI consult thickened endometrium [employer] combo 8/ Details: GERARDO MOLINA is a 74 year old who presents for preoperative evaluation. She is scheduled for a hysteroscopy D C following an ESWL treatment with Dr. Egan. The D C is scheduled due to an incidental finding of thickened endometrial tissue measuring 0.8cm. She denies any postmenopausal bleeding. We discussed that without bleeding and an endometrium less than 11 mm that the chance of malignancy is very rare. Nonetheless, She is going in for ESWL for bilateral non-obstructing kidney stones and we decided that since she was going under anesthesia we would attempt a D C. Office biopsy was not successful due to cervical stenosis. History 0 Elective abortions Hx Para Spontaneous abortions Hx # Term Pregnancies Ectopic pregnancies Hx # Pregnancies Multiple births # of living children ROS Const ROS Unobtainable: All systems reviewed are unremarkable except as noted in H Resp Resp: Reports system reviewed and no additional complaints, except as documented; Denies cough GI GI: Reports as per HPI Psych Psych: Reports system reviewed and no additional complaints, except as documented Exam Const General: cooperative, healthy appearing, comfortable and no acute distress Resp Effort Inspection: normal respiratory effort Skin General: no rashes or lesions noted Psych Appearance: grossly normal Speech and Movement: speech and movement normal Coding Level of Care Code Off vis,est,level 4 Diagnoses Hypertension I10 Thickened endometrium R93.89 Bilateral kidney stones N20.0 Assessment and Plan Assessment and Plan (1) Hypertension: Status: Chronic (2) Thickened endometrium: Status: Acute Comment: endometrial biopsy unable to be done, US ordered and if thickened needs d and c pap. (3) Bilateral kidney stones: Status: Acute Plan After discussing the patient's diagnosis and treatment plan options, patient wishes to proceed with surgical management. I have discussed with the patient the risks, benefits, and alternatives of the procedure which include but are not limited to risks of anesthesia, bleeding, infection, possible damage to bowel, bladder, or surrounding vasculature which could lead to additional surgery to evaluate any complications. Patient agrees to procedure and wishes to proceed. ACOG/uptodate references given for additional information regarding procedure. plan for hysteroscopy D C encouraged to see her pcp for hypertenion treatment. 09/14/24 0906 Date Vesta Desaishanthieulalia Signature: Date (if applicable) CC: Normal [facility] 12 Lead EKGon 09-10-2024 12 Lead EKG [facility] [address] [place] [address] 12 Lead EKG 09/10/24 1251 MR#: [id number] Acct: [id number] Name: GERARDO MOLINA Rep #: [id number] : 1950 74 From: Sofie Rich MD Attending Dr: Dr. Kaylyn Egan MD Status: PRE SDC Ordering Dr: Kaylyn Egan MD Date: 09/10/24 Location: [facility] Sex: F C Admitted: Test Reason : PRE OP Blood Pressure : */* mmHG Vent. Rate : 58 BPM Atrial Rate : 58 BPM P-R Int : 140 ms QRS Dur : 80 ms QT Int : 436 ms P-R-T Axes : 58 15 33 degrees QTcB Int : 428 ms Sinus bradycardia Possible Left atrial enlargement Nonspecific ST abnormality Abnormal ECG Confirmed by LAYLA QURESHI, ORTIZ ([id number]), dictionary editor JAIMIE GARCIA ([id number]) on 09/11/2024 1:18:27 PM Referred By: Kaylyn Egan Confirmed By: ORTIZ RICH MD 09/11/24 1318 Date Sofie Rich MD CC: Dr. Kaylyn Egan MD; Dr. Emerson Dotson DO Signed [facility] Basic Metabolic Profile (BMP )on 09-10-2024 BUN/CRE 25.6 RATIO High 10-20 [facility] Comment on above: Performed By: #### L 100.0500, L500.2500 #### [facility] Laboratory [address] [place], [address] Calcium [Mass/Vol] 9.8 mg/dL Normal 7.6-11.0 [facility] Comment on above: Performed By: #### L 100.0500, L500.2500 #### [facility] [address] [place], [address] Chloride [Moles/Vol] 102 mmol/L Normal 98-108 [facility] Comment on above: Performed By: #### L 100.0500, L500.2500 #### [facility] [address] [place], [address] CO2 [Moles/Vol] 24.2 mmol/L Normal 21.0-32.0 [facility] Comment on above: Performed By: #### L 100.0500, L500.2500 #### [facility] [address] [place], [address] Creatinine [Mass/Vol] 0.63 mg/dL Low 0.70-1.20 [facility] Comment on above: Performed By: #### L 100.0500, L500.2500 #### [facility] [address] [place], [address] GAP 11 Normal 5-15 [facility] Comment on above: Performed By: #### L 100.0500, L500.2500 #### [facility] [address] [place], [address] GFR/1.73 sq M.predicted among non-blacks MDRD (S/P/Bld) [Vol rate/Area] 94 mL/min/{1.73_m2} Normal >60 [facility] Comment on above: Result Comment: mL/m in/1.73m2 CKD-EPI Creatinine Equation (2020) Performed By: #### L 100.0500, L500.2500 #### [facility] [address] [place], [address] Glucose [Mass/Vol] 111 mg/dL High 70-99 [facility] Comment on above: Performed By: #### L 100.0500, L500.2500 #### [facility] [address] [place], [address] Potassium [Moles/Vol] 4.6 mmol/L Normal 3.3-5.1 [facility] Comment on above: Performed By: #### L 100.0500, L500.2500 #### [facility] [address] [place], [address] Sodium [Moles/Vol] 137 mmol/L Normal 133-145 [facility] Comment on above: Performed By: #### L 100.0500, L500.2500 #### [facility] [address] [place], [address] Urea nitrogen [Mass/Vol] 16 mg/dL Normal 4-19 [facility] Comment on above: Performed By: #### L 100.0500, L500.2500 #### [facility] [address] [place], [address] CBC-Complete Blood Cnt No Di ffon 09-10-2024 Erythrocyte distribution width (RBC) [Ratio] 13.6 % Normal 11.6-14.6 [facility] Comment on above: Performed By: #### L 100.0500, L500.2500 #### [facility] [address] [place], [address] Hematocrit (Bld) [Volume fraction] 42.1 % Normal 37-47 [facility] Comment on above: Performed By: #### L 100.0500, L500.2500 #### [facility] [address] [place], [address] Hemoglobin (Bld) [Mass/Vol] 13.9 g/dL Normal 12.0-15.0 [facility] Comment on above: Performed By: #### L 100.0500, L500.2500 #### [facility] [address] [place], [address] MCH (RBC) [Entitic mass] 27.7 pg Normal 27.0-32.0 [facility] Comment on above: Performed By: #### L 100.0500, L500.2500 #### [facility] [address] [place], [address] MCHC (RBC) [Mass/Vol] 33.0 g/dL Normal 32-36 [facility] Comment on above: Performed By: #### L 100.0500, L500.2500 #### [facility] [address] [place], [address] MCV (RBC) [Entitic vol] 83.9 fL Normal 81-99 [facility] Comment on above: Performed By: #### L 100.0500, L500.2500 #### [facility] [address] [place], [address] Platelet mean volume (Bld) [Entitic vol] 10.5 fL Normal 6.2-12.0 [facility] Comment on above: Performed By: #### L 100.0500, L500.2500 #### [facility] [address] [place], [address] Platelets (Bld) [#/Vol] 236 10*3/uL Normal 150-450 [facility] Comment on above: Performed By: #### L 100.0500, L500.2500 #### [facility] [address] [place], [address] RBC (Bld) [#/Vol] 5.02 10*6/uL Normal 4.2-5.4 [facility] Comment on above: Performed By: #### L 100.0500, L500.2500 #### [facility] [address] [place], [address] RDW SD 41.9 fl Normal 35.1-43.9 [facility] Comment on above: Performed By: #### L 100.0500, L500.2500 #### [facility] [address] [place], [address] WBC (Bld) [#/Vol] 8.3 10*3/uL Normal 4.4-11.0 [facility] Comment on above: Performed By: #### L 100.0500, L500.2500 #### [facility] Laboratory [address] [place], [address] MR/PATRosanna 09-10-2024 MR/PAT.BRENNEN [facility] Medical Records Department [address] [place] [address] PAT - Anesthesia 09/10/241915 MR#: [id number] Acct: [id number] Name: GERARDO MOLINA Rep #: [id number] : 1950 74 From: Ynes Lozano MD PCP: Dr. 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 When Was Last Pacemaker Check QUESTION #4 FULL TEXT: You/Your Family Experience fever (hyperthermia) with Anesthesia Last Oral Intake Last Oral intake: Last Oral Intake NPO since Meds taken in AM with sips of water? Meds patient instructed to take am of surgery PONV PONV - product support technician: PONV - product support technician Female Yes 09/10/24 09:08 HX of Motion Sickness No 09/10/24 09:08 HX of N/V After Surgery No 09/10/24 09:08 Non-Smoker Yes 09/10/24 09:08 Duration of Surgery greater Yes 09/10/24 09:08 than 60 minutes Number of Risk Factors 3 09/10/24 09:08 PONV Score Moderate Risk 09/10/24 09:08 Height Weight Height Weight: Anesthesia: Height Weight Height 5 ft 7 in 06/26/24 09:15 Respiratory Assessment Respiratory Assessment - product support technician: Respiratory Tract Infection Hx - product support technician Hx Respiratory Tract Infection No 09/10/24 09:08 STOP Sleep Apnea STOP Sleep Apnea - product support technician: STOP Sleep Apnea - product support technician Hx Hypertension No 09/10/24 09:08 Hx Sleep Apnea No 09/10/24 09:08 CPAP BIPAP Do you snore loudly (louder No 09/10/24 09:08 than talking or can be heard Do you often feel tired/ Yes 09/10/24 09:08 fatigued/ sleepy during daytime? Has anyone observed you stop No 09/10/24 09:08 breathing during sleep? STOP Results Negative 09/10/24 09:08 QUESTION #5 FULL TEXT : Do you snore loudly (louder than talking or can be heard through closed doors)? 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 Specify any problems Hx of Preganancy in last 3 No 09/10/24 09:08 Months Nurse Filling Out Transfusion DSCHRIBER 09/10/24 09:08 Questions: Date: 09/10/24 09/10/24 09:08 Time: 09:10 09/10/24 09:08 Patient unable to answer at this time (ie. confused, unrespo /Reproduction History /Reproductive History - product support technician: /Reproductive Hx- product support technician Hx Now No 09/10/24 09:08 Gestational Age (in weeks): EDC: Hx Hx Para Hx Section SAB No 09/10/24 09:08 PFSH Medical History Wears glasses Post-menopausal Bladder disease Back pain Gastric reflux Non-smoker Home Medications ???Medication ???Instructions ???Recorded ???Last Taken ???Type estradiol 0.01% (0.1 mg/gram) 1 g vaginal 3XW 06/26/24 Unknown H istory vaginal cream solifenacin 5 mg tablet 5 mg PO QDAY 06/26/24 Unknown Hist ory Lactobacillus acidophilus 250 500 mmu cells PO DAILY 09/10/24 Un known History million cell capsule (Probiotic Acidophilus) ascorbic acid (vitamin C) 500 mg 500 mg PO DAILY 09/10/24 Unknown H istory chewable tablet (C-500) Allergy/AdvReac Type Severity Reaction Status Date / Time No Known Allergies Allergy Verified 09/10/24 09:05 Family History Mother Heart disease Father History of kidney cancer Surgical History (Updated 09/10/24 @ 09:15 by Madeline Mercado (more content not included)... Normal [facility] Type AND Screen - PAT ONLYon 09-10-2024 Ab SCREEN GEL Negative Normal [facility] Comment on above: Order Comment: Surge ry Date: 09/24/24Reason for Laboratory Test [id number] D C Performed By: #### B TSPAT ####[facility] [id number] [place], [address] PAP IG HPV APTIMA 16/18,45on 07-02-2024 ADEQ Comment Normal . [facility] Comment on above: Order Comment: Speci men Comment: [id number] Specimen Comment: Source.............Cervix;Endocervix Specimen Comment: Other..............Post Menopausal Specimen Comment: No. of containers..01 ThinPrep Vial Result Comment: Sati sfactory for evaluation. Endocervical and/or squamous metaplastic cells (endocervical component) are present. Performed By: #### L 7400.0280 #### [facility] [address] [place], [place], [id number] COMM . Normal . [facility] Comment on above: Order Comment: Speci men Comment: [id number] Specimen Comment: Source.............Cervix;Endocervix Specimen Comment: Other..............Post Menopausal Specimen Comment: No. of containers..01 ThinPrep Vial Performed By: #### L 7400.0280 #### [facility] [address] [place] [place], [address] COMMENT Comment Normal . [facility] Comment on above: Order Comment: Speci men Comment: [id number] Specimen Comment: Source.............Cervix;Endocervix Specimen Comment: Other..............Post Menopausal Specimen Comment: No. of containers..01 ThinPrep Vial Result Comment: This liquid based ThinPrep(R) pap test was screened with the use of an image guided system. Performed By: #### L 7400.0280 #### [facility] [address] [place], [place], [id number] DIAG Comment Normal . [facility] Comment on above: Order Comment: Speci men Comment: [id number] Specimen Comment: Source.............Cervix;Endocervix Specimen Comment: Other..............Post Menopausal Specimen Comment: No. of containers..01 ThinPrep Vial Result Comment: NEGA TIVE FOR INTRAEPITHELIAL LESION OR MALIGNANCY. Performed By: #### L 7400.0280 #### [facility] [address] [place], [place], [id number] HPV APTIMA, HR Negative Normal Negative [facility] Comment on above: Order Comment: Speci men Comment: [id number] Specimen Comment: Source.............Cervix;Endocervix Specimen Comment: Other..............Post Menopausal Specimen Comment: No. of containers..01 ThinPrep Vial Result Comment: This nucleic acid amplification test detects fourteen high- risk HPV types (16,18,31,33,35,39,45,51,52,56,58,59,66,68) without differentiation. Performed By: #### L 7400.0280 #### [facility] [address] [place], [address] HPV Laura Rfx Comment Normal . [facility] Comment on above: Order Comment: Speci men Comment: [id number] Specimen Comment: Source.............Cervix;Endocervix Specimen Comment: Other..............Post Menopausal Specimen Comment: No. of containers..01 ThinPrep Vial Result Comment: Crit eria not met, HPV Genotype not performed. Performed at: [address] [id number] Dry Transfer Man: Tania Brizuela PhD, Phone: [phone] Performed at: [address] [id number] Dry Transfer Man: Roselyn Ovalle MD, Phone: [phone] Performed at: [address] [id number] Dry Transfer Man: Roselyn Ovalle MD, Phone: [phone] Performed By: #### L 7400.0280 #### [facility] [address] [place], [address] PAPSMR Comment Normal . [facility] Comment on above: Order Comment: Speci men Comment: [id number] Specimen Comment: Source.............Cervix;Endocervix Specimen Comment: Other..............Post Menopausal Specimen Comment: No. of containers..01 ThinPrep Vial Result Comment: The Pap smear is a screening test designed to aid in the detection of premalignant and malignant conditions of the uterine cervix. It is not a diagnostic procedure and should not be used as the sole means of detecting cervical cancer. Both false-positive and false-negative reports do occur. Performed By: #### L 7400.0280 #### [facility] [address] [place], [place], [address] PERFORM Comment Normal . [facility] Comment on above: Order Comment: Speci men Comment: [id number] Specimen Comment: Source.............Cervix;Endocervix Specimen Comment: Other..............Post Menopausal Specimen Comment: No. of containers..01 ThinPrep Vial Result Comment: Fidelina Grace, Merchandising Team Lead (ASCP) Performed By: #### L 7400.0280 #### [facility] [address] [facility]. [place], [place], [id number] Pelvic (Non )on 06-18 Pelvic (Non ) [facility] [address] [place], [place] [address] Pelvic (Non ) MR#: [id number] Acct: [id number] Name: GERARDO MOLINA Rep #: [id number] : 1950 F 74 From: Zaid sorensen MD PCP: Dr. Emerson Dotson, DO Status: REG CLI Study: Pelvic (Non ) Date of Exam: 06/29/24 Exam# [id number] Ordering Dr: Kaylyn Egan MD PROCEDURE: PELVIC (NON ) 06/29/2024 REASON FOR EXAM: ENDOMETRIAL THICKENING Patient is postmenopausal. TECHNIQUE: Transabdominal pelvic ultrasound COMPARISON: None FINDINGS: Measurements: Uterus: 7.4 cm x 4 cm x 2.7 cm with a volume of 42.4 mL Endometrial Thickness: 7 mm. It is hyperechoic. Right Ovary: Not visualized. Left Ovary: Not visualized. Uterus: Normal size, myometrial echotexture, and contour. Endometrium: Endometrium measures 7 mm. This is abnormal for the postmenopausal state. Clinical correlation recommended. Right ovary: Not visualized. Left ovary: Not visualized. Other: No large pelvic mass identified. US/Pelvic (Non ) IMPRESSION: Endometrium is thickened measuring 7 mm. Clinical correlation recommended. Reading Location: [id number] CC: Dr. Kaylyn Egan MD; Dr. Emerson Dotson DO Statistical Methods Professor: Signed Normal [facility] Cervical or vaginal specimen microscopic examination by liquid based cytology (reportOrdered By: Debbie Farfan on 06-26-2024 Cytology report Cyto stain.thin prep Doc (Cvx/Vag) Comment . [facility] Comment on above: Criteria not met, HP V Genotype not performed.Performed at: [address] [id number] Director: Tania Brizuela PhD, Phone: [phone] at: [address] [id number] Director: Roselyn Ovalle MD, Phone: [phone] at: =[address] [id number] Director: Roselyn Ovalle MD, Phone: [phone] Cervical or vagninal specime n microscopic examination by cytology stain (reported asOrdered By: Debbie Farfan on 06-26-2024 Cytology report Cyto stain Doc (Cvx/Vag) Comment . [facility] Comment on above: The Pap smear is a s creening test designed to aid in thedetection of premalignant and malignant conditions of theuterine cervix. It is not a diagnostic procedure andshould not be used as the sole means of detecting cervicalcancer. Both false-positive and false-negative reports dooccur. Detection in cervical specim en of any of human papilloma virus (HPV) 16, 18, 31, 33,Ordered By: Debbie Farfan on 06-26-2024 HPV 16+18+31+33+35+39+45+5 1+52+56+58+59+66+68 DNA Probe+sig amp Ql (Cvx) Negative Negative [facility] Comment on above: This nucleic acid am plification test detects fourteen high- risk HPV types (16,18,31,33,35,39,45,51,52,56,58,59,66,68)without differentiation. Laboratory - CytologyOrdered By: Debbie Farfan on 06-26-2024 Merchandising Team Lead Cyto stain Nom (Cvx/Vag) [ID] Comment . [facility] Comment on above: Anita Grace, Cyto logist (ASCP) Laboratory - Miscellaneous t estsOrdered By: Debbie Farfan on 06-26-2024 Service comment (Unsp spec) [Interp] . . [facility] No Panel InformationOrdered By: Debbie Farfan on 06-26-2024 Pap Smear Specimen Adequacy Comment . [facility] Comment on above: Satisfactory for nabeel luation. Endocervical and/or squamous metaplasticcells (endocervical component) are present. Rock Climbing Instructor Office Visit Reporton 06-26-2024 Rock Climbing Instructor Office Visit Report [facility] [address], [address] [place] [address] OFFICE VISIT Date of Service: 06/26/24 MR#: [id number] Acct: [id number] Name: GERARDO MOLINA Rep #: [id number] : 1950 Provider: Dr. 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 Is patient in pain?: No Allergies No Known Allergies Allergy (Verified 06/26/24 10:44) Medications ???Medication ???Instructions ???Recorded ???Confirmed ???Type acetaminophen 500 mg tablet 500 mg PO Q6H PRN 06/26/24 5 History (Tylenol Extra Strength) estradiol 0.01% (0.1 mg/gram) 1 g vaginal 3XW 06/26/24 06/26/24 History vaginal cream solifenacin 5 mg tablet 5 mg PO QDAY 06/26/24 06/26/24 His tory Is last menstrual period known: No Post menopausal: Yes Patient : No : No PFSH PFSH Surgical History (Updated 06/26/24 @ 10:46 by Julia Teixeira) Hx of tonsillectomy Family History Mother Heart disease Father History of kidney cancer Social History (Updated 06/26/24 @ 10:47 by Julia Teixeira) number of children: 0 Smoking Status: Never smoker alcohol intake: current Alcohol type: wine seatbelt use: always do you feel safe at home: Yes additional social history: History 0 Elective abortions Hx Para Spontaneous abortions Hx # Term Pregnancies Ectopic pregnancies Hx # Pregnancies Multiple births # of living children HPI EMB (JIGNESH) Details: GERARDO MOLINA is a 74 year old who presents for thickened endometirum. it was an incidental finding on ct scna, she has been getting a workup due to urinary frequency and incontinence by dr arizmendi and ct scan showed an 8 mm lining. she dneis any bleeding or discharge no pelvi cpain or prdessure. Female Reproductive History Menopausal Symptoms: No night sweats ROS Const Constitutional: Denies fatigue, night sweats, weight gain or weight loss ENT ENT: Reports system reviewed and no additional complaints, except as documented Cardio Card: Denies chest pain Resp Resp: Denies cough or dyspnea GI GI: Reports as per HPI; Denies abdominal pain, constipation, nausea or vomiting : Reports urinary frequency, urinary incontinence and urinary urgency; Denies nipple discharge, urinary hesitancy, vaginal discharge, vaginal dryness, vaginal odor or vaginal pruritus Musc Musc: Denies arthralgias, back pain or muscle weakness Skin Skin/Breast: Denies alopecia, change in hair, dry skin, breast mass, breast pain, breast skin changes or nipple discharge Neuro Neuro: Reports system reviewed and no additional complaints, except as documented Psych Psych: Reports system reviewed and no additional complaints, except as documented Endo Endo: Denies cold intolerance, excessive sweating, heat intolerance or polydipsia Jose Martin/Lymph Hematologic/Lymphatic: Denies easy bleeding, Denies easy bruising and Denies lymphadenopathy Exam Const General: cooperative, healthy appearing, comfortable, no acute distress and well developed Orientation: alert [facility] Head: normal to inspection and normocephalic Ears: hearing grossly normal bilaterally and external ears normal Nose: external nose normal and nares normal Face and sinus: normal facial exam Neck Neck: normal visual inspection and no lymphadenopathy Thyroid: thyroid normal Chest Chest palpation inspection: normal inspection of the chest Resp Effort Inspection: normal respiratory effort Auscultation: clear to auscultation bilaterally Cardio Rate: regular rate Rhythm: regular rhythm Heart Sounds: S1 normal and S2 normal GI Inspection: normal to inspection and non-distended Palpation: soft and no hepatosplenomegaly General: bladder normal to palpation External Female Exam: normal external appearance and normal appearance of the urethra Urethra: normal appearance of the urethra, normal palpation and no discharge Speculum Exam - Vagina: normal appearance of the vagina and normal vaginal discharge Speculum Exam - Cervix: normal appearance of the cervix (severe stenosis unable to perform EMB) and nontender Bimanual Exam- Vagina Uterus: normal bimanual exam, uterine size normal, bladder normal to palpation, uterine shape normal, No tender, uterine mobility normal, consistency normal, normal palpation and non-tender Bimanual Exam- Adnexa, other: normal adnexae, adnexae mobile, no masses and normal Pelvic Support: normal Musc Other: gross motor intact no deficits, full bilateral strength (more content not included)... Normal [facility] Abdomen Single Viewon 2024 Abdomen Single View [facility] [address] [place], [place] [id number] Abdomen Single View MR#: [id number] Acct: [id number] Name: GERARDO MOLINA Rep #: [id number] : 1950 F 74 From: Micky Matta MD PCP: Dr. Emerson Dotson, DO Status: REG CLI Study: Abdomen Single View Date of Exam: 06/24/24 Exam# [id number] Ordering Dr: Kaylyn Egan MD PROCEDURE: ABDOMEN SINGLE VIEW 06/24/2024 REASON FOR EXAM: KUB- KIDNEY STONE TECHNIQUE: Single view abdomen. 2 total images to include the entire abdomen and pelvis FINDINGS: Small calcification seen over the upper pole of the right renal shadow may represent renal stone. Bowel gas pattern appears nonspecific. Visualized lung bases appear clear. Right hip osteoarthrosis. Heterotopic bone formation left hip. Lower lumbar facet degenerative change RAD/Abdomen Single View IMPRESSION: Small calcification seen over the upper pole of the right renal shadow may represent renal stone. Reading Location: [facility] CC: Dr. Kaylyn Egan MD; Dr. Emerson Dotson DO Statistical Methods Professor: Signed Normal [facility] CT Abd/Pelvis W/WO Contrasto n 06-18-2024 CT Abd/Pelvis W/WO Contrast [facility] [address] [place] [address] [address] [address] Abd/Pelvis W/WO Contrast MR#: [id number] Acct: [id number] Name: GERARDO MOLINA Rep #: [id number] : 1950 F 74 From: Charlene Patterson nd, MD PCP: Dr. Emerson Dotson DO Status: REG CLI Study: CT Abd/Pelvis W/WO Contrast Date of Exam: 03/14 Exam# [id number] Ordering Dr: Kaylyn Egan MD PROCEDURE: CT ABD/PELVIS W/WO CONTRAST 06/18/2024 REASON FOR EXAM: HYDRONEPHROSIS TECHNIQUE: Triple phase CT imaging of the abdomen and pelvis was obtained with and without intravenous contrast. Coronal and Sagittal reconstruction series were provided. PATIENT PREPARATION: Per protocol ORAL CONTRAST TYPE: None. CONTRAST: Isovue-300 VOLUME: 100 mL One or more dose reduction techniques were used (e.g., Automated exposure control, adjustment of the mA and/or kV according to patient size, use of iterative reconstruction technique. RADIATION DOSE SUMMARY: CTDlvol: 75 mGy DLP: 5000 mGycm COMPARISON: Renal ultrasound 06/01/2024. FINDINGS: Lung bases: Small sub-5 mm bilateral pulmonary nodules (for example within the right lower lobe series 3, image 12). The heart is normal in size with trace pericardial effusion. Coronary artery calcifications. Liver: The liver is normal in size with small hepatic cyst. The major portal veins are patent. No biliary ductal dilation. Gallbladder: No radiopaque stones within the gallbladder. Spleen: Normal size. Pancreas: The pancreas is unremarkable. Adrenals: Left adrenal gland thickening/small mass compatible with adenoma. Kidneys: Nonobstructing bilateral renal calculi. Small bilateral renal cysts and parapelvic cysts. No hydronephrosis. Contrast opacifies the bilateral renal collecting systems and urinary bladder on delayed imaging. Bladder: Minimally distended and unremarkable. Reproductive Organs: Mild thickening of the endometrium, measuring approximately 0.8 cm. Normal uterine size and contour. Ovaries are unremarkable. Bowel: The bowel loops are normal in caliber. No ascites or pneumoperitoneum. Normal appendix. Mild distal colonic diverticulosis. Lymph nodes: No suspicious lymph node enlargement. Vasculature: Moderate atherosclerotic plaque throughout the aortoiliac vessels. Bones: Thoracolumbar spondylosis. Chronic fracture deformity or heterotopic ossification along the left ischial tuberosity. Sclerotic lesion within the left inferior sacral body, likely an osteochondroma. CT/CT Abd/Pelvis W/WO Contrast IMPRESSION: 1. No hydronephrosis. Nonobstructing bilateral renal calculi. 2. Mild endometrial thickening, measuring 0.8 cm. Correlation with patient's symptoms is recommended and if clinically indicated, pelvic ultrasound could be obtained. 3. Small bilateral pulmonary nodules, likely noncalcified granulomas or scarring. If patient is high risk, optional CT chest in 12 months could be obtained to evaluate for stability. Reading Location: [id number] CC: Dr. Kaylyn Egan MD; Dr. Emerson Dotson DO Statistical Methods Professor: Signed Normal [facility] Kidney and Bladderon 14- 025 Kidney and Bladder [facility] [address] [place] [address] Kidney and Bladder MR#: [id number] Acct: [id number] Name: GERARDO MOLINA Rep #: [id number] : 1950 F 74 From: Manny diggs MD PCP: Dr. Emerson Dotson DO Status: REG CLI Study: Kidney and Bladder Date of Exam: 06/01/24 Exam# [id number] Ordering Dr: Kaylyn Egan MD PROCEDURE: KIDNEY AND BLADDER 06/01/2024 REASON FOR EXAM: UTI TECHNIQUE: Bilateral renal ultrasound. COMPARISON: None FINDINGS: Kidneys: Normal in size, position and shape. Plummer: Mild left-sided hydronephrosis. Cysts or Masses: None Other: None RIGHT Kidney Size: 11.6 x 5.2 x 4.9 cm Cortical Thickness (if discernible): 1.0 (>6mm is normal) LEFT Kidney Size: 11.2 x 5.1 x 5.4 cm Cortical Thickness (if discernible): 1.0 (>6mm is normal) The distended urinary bladder volume was measured at 124.3 mL. Postvoid volume was 9.6 mL. Bladder wall thickness: 2.7 mm. Bilateral ureteral jets were seen. US/Kidney and Bladder IMPRESSION: Mild left-sided hydronephrosis. Reading Location: [place] [address] CC: Dr. Kaylyn Egan MD; Dr. Emerson Dotson DO Statistical Methods Professor: Signed Normal [facility] Urine Cultureon 04-15-2024 URC Mixed Gram Positive Organisms [place] Count 80,000-100,000 MIXC Mixed contaminants. Submit a new specimen if indicated. Normal [facility] Comment on above: Performed By: #### M 100.1149 ####[facility] [address] [place], [address] Laboratory - Chemistry and C hemistry - challengeOrdered By: Harshal Heath on 04-13-2024 Bilirubin Ql (U) Negative [facility] Glucose Ql (U) Negative [facility] Ketones Ql (U) Small (15+) [facility] pH (U) 5.0 [pH] [facility] Urobilinogen (U) [Mass/Vol] 1 mg/dL [facility] Laboratory - Hematology and Cell countsOrdered By: Harshal Heath on 04-13-2024 Hemoglobin Ql (U) Moderate [facility] Laboratory - Specimen inform ationOrdered By: Harshal Heath on 04-13-2024 Clarity (U) Cloudy [facility] Color (U) YELLOW [facility] Laboratory - UrinalysisOrder ed By: Harshal Heath on 04-13-2024 Nitrite Ql (U) Negative [facility] Protein Ql (U) Trace [facility] No Panel InformationOrdered By: Harshal Heath on 04-13-2024 Urine Leukocytes Positive [facility] Comment on above: small Urine Non-Hemolyzed Blood Non-Hemolyzed [facility] Urgent Care Visit Reporton 0 04-13-2024 Urgent Care Visit Report [facility] [address] , [address] [place] [address] OFFICE VISIT Date of Service: 04/13/24 MR#: [id number] Acct: [id number] Name: GERARDO MOLINA Rep #: [id number] : 1950 Provider: VALERIE Powell Age/Sex: 74/F Location: [facility] Status: Signed Intake Vital Signs 11/30/23 13:26 04/13/24 16:33 Height 5 ft 7 in Weight: 221 lb 4 oz BMI 34.6 BP 122/74 H 122/82 H Position Sitting Pulse 73 76 Temp 97.9 F 98.1 F Temp Source Oral Oral Pulse Oximetry (%) 96 99 Oxygen Delivery Method room air room air Intake Visit Reasons: Urinary tract infection Accompanied by: Self Allergies No Known Allergies Allergy (Verified 04/13/24 16:39) Medications ???Medication ???Instructions ???Recorded ???Confirmed ???Type nitrofurantoin 100 mg PO Q12H 5 days #10 caps 04/13/24 Rx monohydrate/macrocryst als 100 mg capsule (Macrobid) Have you fallen in the past year?: No Nurse's Note: Patient has burning with urination and frequency that started yesterday. PFSH Family History Mother Heart disease Father History of kidney cancer Social History Smoking Status: Never smoker alcohol intake: current Alcohol type: wine HPI HPI Details: GERARDO MOLINA, is a 74 F who presents to the office today for [facility] evaluation at [facility] for approximately 24-hour history of dysuria, frequency. No complaints of fever, chills, sweats, light headedness/dizziness, nausea/vomiting, or chest pain/shortness of breath/dyspnea on exertion/mid- back pain. No changes in color/ character of urine or stool; no urethral/ vaginal discharge. No dmyp-ksw-ljuhfax products taken to assist. No other associated symptoms and no alleviating/aggravatin g factors. ROS Const Constitutional: No other (As above) Exam Const General: cooperative, healthy appearing and no acute distress Orientation: alert, awake and oriented x3 Chest Chest palpation inspection: normal inspection of the chest Resp Effort Inspection: normal respiratory effort and able to speak in complete sentences Auscultation: Bilateral: Clear to Auscultation Cardio Palpation: normal PMI Rate: regular rate Rhythm: regular rhythm Heart Sounds: S1 normal, S2 normal, no gallops, no murmurs and no rubs Pulses: radial pulses present GI Inspection: normal to inspection Palpation: soft and nontender suprapubic (Patient describes upon self-palpation) General: No CVA tenderness Skin General: no rashes or lesions noted Neuro General: patient alert, patient awake and patient oriented x3 Cognition: normal cognition Speech: speech normal Psych Appearance: grossly normal Mental Status: mental status grossly normal Mood: congruent mood Affect: normal affect Speech and Movement: speech and movement normal Attitude: cooperative Diagnoses Urinary tract infection N39.0 Assessment and Plan Assessment and Plan (1) Urinary tract infection: Status: Acute Plan: See POC results; urine sent to lab for UA and C/S. Macrobid as prescribed today. Supportive measures as instructed today. Follow-up with PCP in 3 to 5 days should symptoms not improve, sooner should symptoms only worsen or any other concerns develop. Patient states acknowledging understanding all the above. Results POC Urinalysis Dip (Clinic) Office Urine Color YELLOW Last Edit by Christel Brower MA on 04/13/24 16:58 Office Urine Clarity Cloudy Last Edit by Christel Brower MA on 04/13/24 16:58 Office Urine Glucose Negative Last Edit by Christel Brower MA on 04/13/24 16:58 Office Urine Ketones Small (15+) Last Edit by Christel Brower MA on 04/13/24 16:58 Off Ur Spec [place] Last Edit by Christel Brower MA on 04/13/24 16:58 Office Urine pH 5.0 Last Edit by Christel Brower MA on 04/13/24 16:58 Office Urine Bilirubin Negative Last Edit by Christel Brower MA on 04/13/24 16:58 Office Urine Urobilinogen 1 mg/dL Last Edit by Christel Brower MA on 04/13/24 16:58 Office Urine Blood Moderate Last Edit by Christel Brower MA on 04/13/24 16:58 Office Urine Blood Hemolyzed Non-Hemolyzed Last Edit by Christel Brower MA on 04/13/24 16:58 Office Urine Protein Trace Last Edit by Christel Brower MA on 04/13/24 16:58 Office Urine Nitrate Negative Last Edit by Christel Brower MA on 04/13/24 16:58 Off Ur Leukocytes Positive Last Edit by Christel Brower MA on 04/13/24 16:58 small Christel Brower 04/13/24 16:58 Coding Level of Care Code Off vis,est,level 3 Diagnoses Urinary tract infection without hematuria, site unspecified N39.0 Hematuria presence: without hematuria Urinary tract infection type: site unspecified Assessment and Plan Assessment and Plan (1) (more content not included)... Normal [facility] Urine cultureOrdered By: Asa Heath on 04-13-2024 Bacteria identified Cx Nom (U) Positive Abnormal [facility] Bacteria identified Cx Nom (U) Positive Abnormal [facility] Urine Cultureon 12-03-2023 URC Below infection leve l. Mixed Gram Pos Gram Neg Org [place] Count 1000-10,000 MIXC Mixed contaminants. Submit a new specimen if indicated. Normal [facility] Comment on above: Performed By: #### M 100.2200 ####[facility] [id number] [place], [place], [id number] Urgent Care Visit Reporton 1 Urgent Care Visit Report [facility] [address] , [address] [place] [address] OFFICE VISIT Date of Service: 11/30/23 MR#: [id number] Acct: [id number] Name: GERARDO MOLINA Rep #: [id number] : 1950 Provider: VALERIE Downing Age/Sex: 73/F Location: [facility] Status: Signed Intake Vital Signs 07/14/22 08:34 11/30/23 13:26 Height 5 ft 7 in 5 ft 7 in Weight: 221 lb 4 oz BMI 34.6 BP 122/74 H Pulse 73 Temp 97.9 F Temp Source Oral Pulse Oximetry (%) 96 Oxygen Delivery Method room air Intake Visit Reasons: CONCERN FOR UTI Chief Complaint: Increased urinary urgency Accompanied by: Self Allergies No Known Allergies Allergy (Verified 11/30/23 13:27) Medications ???Medication ???Instructions ???Recorded ???Confirmed ???Type nitrofurantoin 100 mg PO Q12H 5 days #10 caps 11/30/23 11/30/23 Rx monohydrate/macrocryst als 100 mg capsule (Macrobid) Have you fallen in the past year?: No PFSH Family History Mother Heart disease Father History of kidney cancer Social History Smoking Status: Never smoker alcohol intake: current Alcohol type: wine HPI HPI Chief Complaint: Increased urinary urgency Details: GERARDO MOLINA, is a 73 F who presents to the office today for UTI. Patient states that she has frequency and burning that has been going on for 1-2 days. Patient notes a past medical history of frequent and recurrent UTIs. Patient is not currently utilizing any treatment for this issue. Patient denies symptoms of fever, chills, nausea, vomiting, and abdominal pain. ROS Const Constitutional: No body ache, chills, fatigue or fever(s) Gastro GI: Positive for abdominal pain; No change in bowel habits, diarrhea or vomiting Genitourinary-Female: Positive for painful urination, urinary frequency and urinary urgency; No blood in urine or suprapubic fullness Endo Endocrine: No fatigue Exam Const General: healthy appearing and no acute distress GI Palpation: soft, no guarding and nontender Other: No CVA tenderness bilatearlly Results POC Urinalysis Dip (Clinic) Office Urine Color Dk Yellow Last Edit by Christel Brower MA on 11/30/23 13:29 Office Urine Clarity Clear Last Edit by Christel Brower MA on 11/30/23 13:29 Office Urine Glucose Last Edit by Christel Brower MA on 11/30/23 13:29 Office Urine Ketones Negative Last Edit by Christel Brower MA on 11/30/23 13:29 Off Ur Spec [place] >1.030 Last Edit by Christel Brower MA on 11/30/23 13:29 Office Urine pH 6.5 Last Edit by Christel Brower MA on 11/30/23 13:29 Office Urine Bilirubin Small (1+) Last Edit by Christel Brower MA on 11/30/23 13:29 Office Urine Urobilinogen 0.2 mg/dL Last Edit by Christel Brower MA on 11/30/23 13:29 Office Urine Blood Large Last Edit by Christel Brower MA on 11/30/23 13:29 Office Urine Blood Hemolyzed Large Last Edit by Christel Brower MA on 11/30/23 13:29 Office Urine Protein Last Edit by Christel Brower MA on 11/30/23 13:29 Office Urine Nitrate Negative Last Edit by Christel Brower MA on 11/30/23 13:29 Off Ur Leukocytes Positive Last Edit by Christel Brower MA on 11/30/23 13:29 Coding Level of Care Code Established Pt Off vis,est,level 3 Patient Type Established History Problem Focused Exam Problem Focused Medical Decision Making Low Complexity Diagnoses Urinary tract infection without hematuria, site unspecified N39.0 Urinary tract infection type: site unspecified Hematuria presence: without hematuria Assessment and Plan Assessment and Plan (1) UTI (urinary tract infection): Status: Acute Qualifiers: Urinary tract infection type: site unspecified Hematuria presence: without hematuria Qualified Code(s): N39.0 - Urinary tract infection, site not specified Plan: Treat as below based on prior UTIs and susceptibility. Discussed conservative care for symptomatic management including OTC analgesia and adequate fluid hydration. F/u in 2-3 days over the phone for urine culture results. F/u with PCP or back in the [facility] if persistent or worsening symptoms at completion of Abx. Patient voiced understanding and agreement with plan. Orders: Orders POC Urinalysis Dip (Clinic) Today N39.0 - Urinary tract infection, site not specified Culture, Urine Today N39.0 - Urinary tract infection, site not specified Medications: New nitrofurantoin monohyd/m-cryst 100 mg (Macrobid) must administer with a meal/food 100 mg PO Q12H 10 caps 0RF 5 days Clinical Quality Measures Falls Risk Screening/Assistive Devices Have you fallen in the past year?: No 11/30/23 1338 Date Tanner Khan (more content not included)... Normal [facility] Culture, urineOrdered By: [facility] on 06-19-2023 Bacteria identified Cx Nom (U) Mixed Gram Pos & Gram Neg Org [facility] Laboratory - Chemistry and C hemistry - challengeon 06-18-2023 Bilirubin Ql (U) Negative [facility] Glucose Ql (U) Negative [facility] Ketones Ql (U) Negative [facility] pH (U) 5.0 [pH] [facility] Specific gravity (U) [Rel density] 1.030 [facility] Urobilinogen (U) [Mass/Vol] Negative [facility] Laboratory - Hematology and Cell countson 06-18-2023 Hemoglobin Ql (U) Hemolyzed [facility] Laboratory - Specimen inform ationon 06-18-2023 Clarity (U) Cloudy [facility] Color (U) YELLOW [facility] Laboratory - Urinalysison Nitrite Ql (U) Negative [facility] Protein Ql (U) Negative [facility] No Panel Informationon 06-17 Urine Leukocytes Positive [facility] Urine Non-Hemolyzed Blood Large [facility] Culture, urineOrdered By: Hill Fletcher on 02-15-2023 Bacteria identified Cx Nom (U) Escherichia coli [facility] Laboratory - Chemistry and C hemistry - challengeon 02-13-2023 Bilirubin Ql (U) Negative [facility] Glucose Ql (U) Negative [facility] Ketones Ql (U) Negative [facility] Specific gravity (U) [Rel density] 1.005 [facility] Urobilinogen (U) [Mass/Vol] Negative [facility] Laboratory - Hematology and Cell countson 02-13-2023 Hemoglobin Ql (U) Small [facility] Laboratory - Specimen inform ationon 02-13-2023 Clarity (U) Clear [facility] Color (U) Yellow [facility] Laboratory - Urinalysison Nitrite Ql (U) Negative [facility] Protein Ql (U) Negative [facility] No Panel Informationon 02-13 Urine Leukocytes Positive [facility] Urine Non-Hemolyzed Blood [facility] Urine pH 6.0. [facility] Vital Signs Date Time Vital Sign Value Performing Clinician Faci lity 10-28-2024 08:07-0400 Body height 170.[address] Emerson Dotson DO Work Phone: [facility] 10-28-2024 08:07-0400 Body mass index (BMI) [Ratio] 34.2 kg/m2 Dr. Emerson Dotson DO Work Phone: [facility] 10-28-2024 08:07-0400 Body weight 99.[address] Emerson Dotson DO Work Phone: [facility] 10-28-2024 08:07-0400 Diastolic blood pressure 68 mm[Hg] Dr. Emerson Dotson DO Work Phone: [facility] 10-28-2024 08:07-0400 Heart rate 65 /min Dr. Emerson Dotson DO Work Phone: [facility] 10-28-2024 08:07-0400 Systolic blood pressure 117 mm[Hg] Dr. Emerson Dotson DO Work Phone: [facility] 09-18-2024 14:02-0400 Body height 170.[address] Emerson Dotson DO Work Phone: [facility] 09-18-2024 14:02-0400 Body mass index (BMI) [Ratio] 34.2 kg/m2 Dr. Emerson Dotson DO Work Phone: [facility] 09-18-2024 14:02-0400 Body weight 99.[address] Emerson Dotson DO Work Phone: [facility] 09-18-2024 14:02-0400 Diastolic blood pressure 84 mm[Hg] Dr. Emerson Dotson DO Work Phone: [facility] 09-18-2024 14:02-0400 Heart rate 77 /min Dr. Emerson Dotson DO Work Phone: [facility] 09-18-2024 14:02-0400 Systolic blood pressure 142 mm[Hg] Dr. Emerson Dotson DO Work Phone: [facility] 09-14-2024 08:30-0400 Body height 170.[address] Emerson Dotson DO Work Phone: [facility] 09-14-2024 08:30-0400 Body mass index (BMI) [Ratio] 34.2 kg/m2 Dr. Emerson Dotson DO Work Phone: [facility] 09-14-2024 08:30-0400 Body weight 99.[address] Emerson Dotson DO Work Phone: [facility] 09-14-2024 08:30-0400 Diastolic blood pressure 78 mm[Hg] Dr. Emerson Dotson DO Work Phone: [facility] 09-14-2024 08:30-0400 Systolic blood pressure 163 mm[Hg] Dr. Emerson Dotson DO Work Phone: [facility] 06-26-2024 09:15-0400 Body height 170.[address] Emerson Dotson DO Work Phone: [facility] 06-26-2024 09:15-0400 Body mass index (BMI) [Ratio] 34.4 kg/m2 Dr. Emerson Dotson DO Work Phone: [facility] 06-26-2024 09:15-0400 Body weight 99.[address] Emerson Dotson DO Work Phone: [facility] 06-26-2024 09:15-0400 Diastolic blood pressure 75 mm[Hg] Dr. Emerson Dotson DO Work Phone: [facility] 06-26-2024 09:15-0400 Systolic blood pressure 144 mm[Hg] Dr. Emerson Dotson DO Work Phone: [facility] 04-13-2024 16:33-0500 Body temperature 98.1 [degF] Dr. Emerson Dotson DO Work Phone: [facility] 04-13-2024 16:33-0500 Diastolic blood pressure 82 mm[Hg] Dr. Emerson Dotson DO Work Phone: [facility] 04-13-2024 16:33-0500 Heart rate 76 /min Dr. Emerson Dotson DO Work Phone: [facility] 04-13-2024 16:33-0500 SaO2% (BldA) [Mass fraction] 99 % Dr. Emerson Dotson DO Work Phone: [facility] 04-13-2024 16:33-0500 Systolic blood pressure 122 mm[Hg] Dr. Emerson Dotson DO Work Phone: [facility] 06-18-2023 17:03-0400 Body temperature 97.6 [degF] Dr. Emerson Dotson Work Phone: [facility] 06-18-2023 17:03-0400 Diastolic blood pressure 86 mm[Hg] Dr. Emerson Dotson Work Phone: [facility] 06-18-2023 17:03-0400 Heart rate 96 /min Dr. Emerson Dotson Work Phone: [facility] 06-18-2023 17:03-0400 Respiratory rate 12 /min Dr. Emerson Dotson Work Phone: [facility] 06-18-2023 17:03-0400 SaO2% (BldA) [Mass fraction] 98 % Dr. Emerson Dotson Work Phone: [facility] 06-18-2023 17:03-0400 Systolic blood pressure 132 mm[Hg] Dr. Emerson Dotson Work Phone: [facility] 02-13-2023 16:59-0500 Body temperature 96 [degF] Dr. Emerson Dotson Work Phone: [facility] 02-13-2023 16:59-0500 Diastolic blood pressure 84 mm[Hg] Dr. Emerson Dotson Work Phone: [facility] 02-13-2023 16:59-0500 Heart rate 83 /min Dr. Emerson Dotson Work Phone: [facility] 02-13-2023 16:59-0500 Respiratory rate 15 /min Dr. Emerson Dotson Work Phone: [facility] 02-13-2023 16:59-0500 SaO2% (BldA) [Mass fraction] 98 % Dr. Emerson Dotson Work Phone: [facility] 02-13-2023 16:59-0500 Systolic blood pressure 134 mm[Hg] Dr. Emerson Dotson Work Phone: [facility] Encounters Encounter Date Encounter Type Care Provider Facility Start: 11-05-2024 ambulatory Vesta Flanagan Fa cility:[facility] Start: 11-03-2024 Encounter for other preprocedural examination Kaylyn Egan [facility] Start: 10-28-2024 End: 10-28-[address] Kaylyn Egan MD -[facility] Work Phone: Start: 10-28-2024 End: 10-28-[address] Emerson Dotson DO Work Phone: -[facility] Start: 10-21-2024 Non-patient / Non-visit Dr. Bala ellis MD -[facility] Start: 10-21-2024 End: 10-21-[address] Emerson Dotson DO Work Phone: -[facility] Start: 10-21-2024 End: 10-21-[address] Emerson Dotson DO -[facility] Work Phone: Start: 10-21-2024 End: 10-21-2024 ambulatory [facility] Facility:[facility] Start: 09-18-2024 End: 09-18-[address] Kaylyn Egan MD -[facility] Work Phone: Start: 09-18-2024 End: 09-18-[address] Emerson Dotson DO Work Phone: -[facility] Start: 09-14-2024 End: 09-14-[address] Vesta Flanagan DO -[facility] Work Phone: Start: 09-14-2024 End: 09-14-[address] Emerson Dotson DO Work Phone: -[facility] Start: 09-10-2024 ambulatory [facility] Facility: [facility] Start: 09-10-2024 Non-patient / Non-visit Dr. Mari Rich MD -[facility] Work Phone: Start: 08-18-2024 Non-patient / Non-visit Dr. Kaylyn villeda MD -[facility] Work Phone: Start: 06-29-2024 End: 06-29-[address] Emerson Dotson DO Work Phone: [facility] Work Phone: Start: 06-29-2024 End: 06-29-[address] Kaylyn Egan MD -Ultrasound, [facility] Work Phone: Start: 06-29-2024 End: 06-29-2024 ambulatory [facility] Facility:[facility] Start: 06-26-2024 End: 06-26-[address] Debbie Farfan MD -Laboratory, [facility] Work Phone: Start: 06-26-2024 End: 06-26-[address] Emerson Dotson DO Work Phone: [facility] Work Phone: Start: 06-26-2024 End: 06-26-2024 ambulatory [facility] Facility:[facility] Start: 06-24-2024 End: 06-24-[address] Emerson Dotson DO Work Phone: [facility] Work Phone: Start: 06-24-2024 End: 06-24-[address] Kaylyn Egan MD -Radiology, [place] Work Phone: Start: 06-24-2024 End: 06-24-2024 ambulatory [facility] Facility:[facility] Start: 06-18-2024 End: 06-18-[address] Kaylyn Egan MD -Cat Scan, [facility] Work Phone: Start: 06-18-2024 End: 06-18-2024 ambulatory [facility] Facility:[facility] Start: 06-01-2024 End: 06-01-[address] Emerson Dotson DO Work Phone: [facility] Work Phone: Start: 06-01-2024 End: 06-01-[address] Kaylyn Egan MD -Ultrasound, [facility] Work Phone: Start: 06-01-2024 End: 06-01-2024 ambulatory [facility] Facility:[facility] Start: 04-13-2024 End: 04-13-2024 Patient encounter procedure Harshal PADILLA -[facility] Work Phone: Start: 04-13-2024 End: 04-13-[address] Emerson Dotson DO Work Phone: [facility] Work Phone: Start: 04-13-2024 End: 04-13-2024 ambulatory Emerson Dotson Facility:[facility] Start: 11-30-2023 End: 11-30-2023 ambulatory Emerson Dotson Facility:[facility] Start: 11-30-2023 End: 11-30-2023 ambulatory Tanner Harper Facility:[facility] Start: 06-19-2023 End: 06-19-[address] Emerson Dotson Work Phone: [facility] Work Phone: Start: 06-19-2023 End: 06-19-[address] [facility] Start: 06-18-2023 End: 06-18-[address] Emerson Dotson Work Phone: [facility] Work Phone: Start: 02-15-2023 End: 02-15-[address] Emerson Dotson Work Phone: [facility] Work Phone: Start: 02-15-2023 End: 02-15-[address] [facility] Work [facility] Start: 02-13-2023 End: 02-13-[address] Emerson Dotson Work Phone: [facility] Work Phone: Procedures Date Procedure Procedure Detail Performing Clinician Start: 06-29-[address] Rigoberto Dotson DO Work Phone: Start: 06-26-2024 Liquid based cervica l cytology screening Dr. Emerson Dotson DO Work Phone: Comment on above: NEGATIVE FOR INTRAEP ITHELIAL LESION OR MALIGNANCY. This liquid based Th inPrep(R) pap test was screened withthe use of an image guided system. Start: 06-24-2024 Plain X-ray abdomen Dr. Emerson Dotson DO Work Phone: Start: 06-18-2024 Computed tomography of abdomen and pelvis with contrast Dr. Emerson Dotson DO Work Phone: Start: 06-01-2024 Complete ultrasound of kidneys and bladder Dr. Emerson Dotson DO Work Phone: Start: 04-13-[address] Emerson Dotson DO Work Phone: Start: 06-19-[address] Emerson Dotson Work Phone: Start: 02-15-[address] Emerson Dotson Work Phone: Plan of Treatment Date Care Activity Detail Author Start: 06-29-2024 Pelvic echography Pelvic (Non ) [facility] Start: 06-29-[address] [facility] Start: 06-26-2024 Liquid based cervica l cytology screening [facility] Cytology report of Cervical or vaginal smear or scraping Cyto stain.thin prep [facility] Liquid based cervica l cytology screening [facility] Path report.final Dx Spec [facility] Payers Date Payer Category Payer Medicare [id number] 2023 Private Health Insurance CLI [id number] 2023 Self-pay [id number] Unknown [id number] Unknown [id number] Unknown [id number] Unknown [id number] 2.16.8 [id number] Unknown [id number] 2.16.8 [id number] Unknown [id number] 2.16.8 [id number] Unknown [id number] 2.16.8 [id number] Unknown [id number] 2.16.8 [id number] Unknown [id number] 2.16.8 [id number] Unknown [id number] 2.16.8 [id number] Unknown [id number] 2.16.8 [id number] Unknown [id number] 2.16.8 [id number] Unknown [id number] 2.16.8 [id number] Unknown [id number] 2.16.8 [id number] Unknown [id number] 2.16.8 [id number] Unknown [id number] 2.16.8 [id number] Unknown [id number] 2.16.8 [id number] Unknown [id number] 2.16.8 [id number] Unknown [id number] 2.16.8 [id number] Unknown [id number] 2.16.8 [id number] Social History Date Type Detail Facility Start: 02-13-2023 End: 02-13-2023 Tobacco smoking status NHIS Unknown if ever smoked [facility] Start: 1950 Sex Assigned At Female [facility] Start: 02-13-2023 End: 10-28-2024 Tobacco smoking status NHIS Never smoked tobacco (finding) [facility] Start: 04-24-2024 End: 06-04-2024 Sex Female (finding) [facility] Clinical Notes 04-13-2024 to 09-14-2024 Note Date & Type Note Facility 09-14-2024 Evaluation note Diagnosis Onset Date Resolution Bilateral kidney stones acute J 2024 8:25am Thickened endometrium acute Aug 8:25am Hypertension chronic September 14, 2 025 8:25am Endometrial thickening on ultrasound acute September 18, 2024 1:50pm Kidney stones acute September 18, 2024 1:50pm Mixed incontinence acute September 18, 2024 1:50pm Nocturia acute September 18 1:50pm Overactive bladder acute September 18, 2024 1:50pm UTI (urinary tract infection) acute September 18, 2024 1:50pm Vaginal atrophy acute September 1:50pm [facility] Work Phone: 1(296) 488-201807-28-2025 Evaluation note* Diagnosis Onset Date Resolution Status Admit Date Bilateral kidney stones acute J britney 2024 8:25am Thickened endometrium acute Aug 8:25am Hypertension chronic September 14, 2 025 8:25am Endometrial thickening on ultrasound acute September 18, 2024 1:50pm Kidney stones acute September 18, 2024 1:50pm Mixed incontinence acute September 18, 2024 1:50pm Nocturia acute September 18 1:50pm Overactive bladder acute September 18, 2024 1:50pm UTI (urinary tract infection) acute September 18, 2024 1:50pm Vaginal atrophy acute September 1:50pm Endometrial thickening on ultrasound acute October 28, 2024 7:54am Kidney stones acute October 192024 7:54am Mixed incontinence acute 2024 7:54am Nocturia acute October 7:54am Overactive bladder acute Septem 2024 7:54am UTI (urinary tract infection) acute October 28, 2024 7:54am Vaginal atrophy acute October 28, 2024 7:54am [facility] Work Phone: 1(125) 786-737705-14-2025 Radiology Diagnostic study note [facility] Imaging Services [address] [place] [address] Pelvic (Non ) MR#: [id number] Acct: [id number] Name: GERARDO MOLINA Rep #: [id number] : 1950 F 74 From: Toney Iqbal MD PCP: Dr. Emerson Dotson DO Status: REG CLI Study:Pelvic (Non ) Date of Exam: 06/29/24 Exam# [id number] Ordering Dr: Kaylyn Egan MD PROCEDURE: PELVIC (NON ) 06/29/2024 REASON FOR EXAM: ENDOMETRIAL THICKENING Patient is postmenopausal. TECHNIQUE: Transabdominal pelvic ultrasound COMPARISON: None FINDINGS: Measurements: Uterus: 7.4 cm x 4 cm x 2.7 cm with a volume of 42.4 mL Endometrial Thickness: 7 mm. It is hyperechoic. Right Ovary: Not visualized. Left Ovary: Not visualized. Uterus: Normal size, myometrial echotexture, and contour. Endometrium: Endometrium measures 7 mm. This is abnormal for the postmenopausalstate. Clinical correlation recommended. Right ovary: Not visualized. Left ovary: Not visualized. Other: No large pelvic mass identified. US/Pelvic (Non ) IMPRESSION: Endometrium is thickened measuring 7 mm. Clinical correlation recommended. Reading Location: [facility] CC: Dr. Kaylyn Egan MD; Dr. Emerson Dotson DO ~ Statistical Methods Professor: Signed [facility]05-09-2025 Evaluation note* Diagnosis Onset Date Resolution Status Admit Date Thickened endometrium acute June 26, 2024 10:39am [facility] Work Phone: 1(333) 225-228705-09-2025 Evaluation note* Diagnosis Onset Date Resolution Status Admit Date Thickened endometrium acute June 26, 2024 10:39am Bilateral kidney stones acute J britney 2024 8:25am Thickened endometrium acute Naldo y 2024 8:25am Hypertension chronic September 14, 025 8:25am Kidney stones acute September 18, 2024 1:50pm [facility] Work Phone: 1(936) 961-247405-08-2025 Radiology Diagnostic study note [facility] Imaging Services [address] [place] [id number] Abdomen Single View MR#: [id number] Acct: [id number] Name: GERARDO MOLINA Rep #: [id number] : 1950 F 74 From: Selvin Matta MD PCP: Dr. Emerson Dotson DO Status: REG CLI Study:Abdomen Single View Date of Exam: 06/24/24 Exam# [id number] Ordering Dr: Kaylyn Egan MD PROCEDURE: ABDOMEN SINGLE VIEW 06/24/2024 REASON FOR EXAM: KUB- KIDNEY STONE TECHNIQUE: Single view abdomen. 2 total images to include the entire abdomen and pelvis FINDINGS: Small calcification seen over the upper pole of the right renal shadow may represent renal stone. Bowel gas pattern appears nonspecific. Visualized lung bases appear clear. Right hip osteoarthrosis. Heterotopic bone formation left hip. Lower lumbar facet degenerative change RAD/Abdomen Single View IMPRESSION: Small calcification seen over the upper pole of the right renal shadow may represent renal stone. Reading Location: [facility] CC: Dr. Kaylyn Egan MD; Dr. Emerson Dotson DO ~ Statistical Methods Professor: Signed [facility]04-15-2025 Radiology Diagnostic study note [facility] Imaging Services [address] [place] [address] Kidney and Bladder MR#: [id number] Acct: [id number] Name: GERARDO MOLINA Rep #: [id number] : 1950 F 74 From: Carly Wilson MD PCP: Dr. Emerson Dotson DO Status: REG CLI Study:Kidney and Bladder Date of Exam: 0 06/01/24 Exam# [id number] Ordering Dr: Kaylyn Egan MD PROCEDURE: KIDNEY AND BLADDER 06/01/2024 REASON FOR EXAM: UTI TECHNIQUE: Bilateral renal ultrasound. COMPARISON: None FINDINGS: Kidneys: Normal in size, position and shape. Plummer: Mild left-sided hydronephrosis. Cysts or Masses: None Other: None RIGHT Kidney Size: 11.6 x 5.2 x 4.9 cm Cortical Thickness (if discernible): 1.0 (>6mm is normal) LEFT Kidney Size: 11.2 x 5.1 x 5.4 cm Cortical Thickness (if discernible): 1.0 (>6mm is normal) The distended urinary bladder volume was measured at 124.3 mL. Postvoid volume was 9.6 mL. Bladder wall thickness: 2.7 mm. Bilateral ureteral jets were seen. US/Kidney and Bladder IMPRESSION: Mild left-sided hydronephrosis. Reading Location: [place] [address] CC: Dr. Kaylyn Egan MD; Dr. Emerson Dotson, DO ~ Statistical Methods Professor: Signed [facility]02-24-2025 Evaluation note* Diagnosis Onset Date Resolution Status Admit Date UTI (urinary tract infection) acute April 13, 2024 4:28pm [facility] Work Phone: 1(590) 149-198202-24-2025 Evaluation note* Diagnosis Onset Date Resolution Status Admit Date UTI (urinary tract infection) acute April 13, 2024 4:28pm Thickened endometrium acute June 26, 2024 10:39am [facility] Work Phone: Evaluation note* Diagnosis Onset Date Resolution Status UTI (urinary tract infection) acute [facility] Work Phone: Evaluation noteNo assessment information available [facility] Work Phone: Reason for referral (narrative)No reason for [facility] Work Phone: Chief Complaint and Reason for Visit Chief Complaint Admit Date Urinary tract infection April 13, 4:28pm UTI June 01, 2024 3:4 4pm Reason for Visit Admit Date UTI (urinary tract infection) March 222024 4:28pm Chief Complaint Urinary tract infect ion Reason for Visit UTI (urinary tract i nfection) Chief Complaint CONCERN FOR UTI Chief Complaint Admit Date Urinary tract infection April 13, 025 4:28pm Chief Complaint Admit Date Urinary tract infection April 13 025 4:28pm UTI June 01, 2024 3:4 4pm HYDRONEPHROSIS June 18, 2024 2:36pm KUB- KIDNEY STONE June 24, 2024 2:52pm E[facility] (WYNESKI) June 26, 2024 10:39a m ENDOMETRIAL THICKENING June 29, 2024 4: 22pm Reason for Visit Admit Date UTI (urinary tract infection) March 222024 4:28pm Thickened endometrium June 26, 2024 10:3 9am Chief Complaint Admit Date UTI June 01, 2024 3:4 4pm HYDRONEPHROSIS June 18, 2024 2:36pm KUB- KIDNEY STONE June 24, 2024 2:52pm E[facility] (JOLLYKI) June 26, 2024 10:39a m ENDOMETRIAL THICKENING June 29, 2024 4: 22pm consult thickened endometrium [facility] 09/24September 14, 2024 8:25am Reason for Visit Admit Date Thickened endometrium June 26, 2024 10:3 9am Chief Complaint Admit Date UTI June 01, 2024 3:4 4pm HYDRONEPHROSIS June 18, 2024 2:36pm KUB- KIDNEY STONE June 24, 2024 2:52pm EMB (WYNESKI) June 26, 2024 10:39a m ENDOMETRIAL THICKENING June 29, 2024 4: 22pm PREOP September 10, 2024 12:5 1pm consult thickened endometrium [facility] 09/24September 14, 2024 8:25am PRE OP URINE/SIGN CONSENT September 18 1:50pm Reason for Visit Admit Date Thickened endometrium June 26, 2024 10:3 9am Bilateral kidney stones September 14, 2024 8:25am Thickened endometrium September 14, 2024 8: 25am Hypertension September 14, 2024 8:25 am Kidney stones September 18, 2024 1:5 0pm Chief Complaint Admit Date PREOP September 10, 2024 12:5 1pm consult thickened endometrium Jignesh flanagan 09/24September 14, 2024 8:25am PRE OP URINE/SIGN CONSENT September 18 1:50pm CAD, ABN EKG October 21, 2024 9:49am Pre-op surgery/urine C&S/sign consent Se pt2024 7:54am Reason for Visit Admit Date Bilateral kidney stones September 14, 2024 8:25am Thickened endometrium September 14, 2024 8: 25am Hypertension September 14, 2024 8:25 am Endometrial thickening on ultrasound Sep ust 2024 1:50pm Kidney stones September 18, 2024 1:5 0pm Mixed incontinence September 18, 2024 1:5 0pm Nocturia September 18, 2024 1:5 0pm Overactive bladder September 18, 2024 1:5 0pm UTI (urinary tract infection) September 1:50pm Vaginal atrophy September 18, 2024 1:5 0pm Reason for Visit Admit Date Bilateral kidney stones September 14, 2024 8:25am Thickened endometrium September 14, 2024 8: 25am Hypertension September 14, 2024 8:25 am Endometrial thickening on ultrasound Sep us2024 1:50pm Kidney stones September 18, 2024 1:5 0pm Mixed incontinence September 18, 2024 1:5 0pm Nocturia September 18, 2024 1:5 0pm Overactive bladder September 18, 2024 1:5 0pm UTI (urinary tract infection) September 1:50pm Vaginal atrophy September 18, 2024 1:5 0pm Endometrial thickening on ultrasound Oct 7:54am Kidney stones October 28, 2024 7:54am Mixed incontinence October 28, 2024 7:54am Nocturia October 28, 2024 7:54am Overactive bladder October 28, 2024 7:54am UTI (urinary tract infection) October 28, 2024 7:54am Vaginal atrophy October 28, 2024 7:54am Family History No Family History Records Found Relationship Condition Age at Onset Recorded Date/T trell mother Cardiac disease Unknown father History of malignant neoplasm of kidney U nknown Advance Directives No Advanced Directives Records Found Advance Directive Response Recorded Date/ Time Living Will Yes February 27 4:59am Power of Fashion Adviser Yes February 27, 2018 4:59am Advance Directive Response Recorded Date/ Time Living Will Yes February 27 5:59am Power of Fashion Adviser Yes February 27, 2018 5:59am Summary Purpose Additional Source Comments Care Teams (unrecognized sec tion and content) Team Status: Active Member Role Status Dates Dr. Emerson Dotson DO Family Provider Active Dr. Emerson Dotson DO Primary Care Provider Active Team Status: Inactive Member Role Status Dates Dr. Emerson Dotson DO Primary Care Provider, Referrin g Provider Active Hernesto PADILLA PA Attending Provider Active Team Status: Inactive Member Role Status Dates Dr. Emerson Dotson DO Primary Care Provider Active Hernesto PADILLA PA Attending Provider, Referring Provi sim Active Team Status: Inactive Member Role Status Dates Dr. Emerson Dotson DO Primary Care Provider, Referrin g Provider Active Harshal PADILLA PA Attending Provider Active Team Status: Inactive Member Role Status Dates Dr. Emerson Dotson DO Primary Care Provider Active Harshal PADILLA PA Attending Provider, Referring Pr ovider Active Team Status: Inactive Member Role Status Dates Dr. Emerson Dotson DO Primary Care Provider Active Start: April 13, 2024 End: April 13, 2024 Dr. Emerson Dotson DO Referring Provider Active Start: April 13, 2024 End: April 13, 2024 Harshal PADILLA PA Attending Provider Active Start: April 13, 2024 End: April 13, 2024 Team Status: Inactive Member Role Status Dates Dr. Emerson Dotson DO Primary Care Provider Active Start: April 13, 2024 End: April 13, 2024 Harshal PADILLA PA Attending Provider Active Start: April 13, 2024 End: April 13, 2024 Team Status: Active Member Role Status Dates Dr. Emerson Dotson DO Primary Care Provider Active Team Status: Inactive Member Role Status Dates Dr. Emerson Dotson DO Primary Care Provider Active Start: June 01, 2024 End: June 01, 2024 Dr. Kaylyn Egan MD Attending Provider Active Start: June 01, 2024 End: June 01, 2024 Dr. Kaylyn Egan MD Referring Provider Active Start: June 01, 2024 End: June 01, 2024 Team Status: Inactive Member Role Status Dates Dr. Emerson Dotson DO Primary Care Provider Active Start: June 18, 2024 End: June 18, 2024 Dr. Kaylyn Egan MD Attending Provider Active Start: June 18, 2024 End: June 18, 2024 Dr. Kaylyn Egan MD Referring Provider Active Start: June 18, 2024 End: June 18, 2024 Team Status: Inactive Member Role Status Dates Dr. Emerson Dotson DO Primary Care Provider Active Start: June 24, 2024 End: June 24, 2024 Dr. Kaylyn Egan MD Attending Provider Active Start: June 24, 2024 End: June 24, 2024 Dr. Kaylyn Egan MD Referring Provider Active Start: June 24, 2024 End: June 24, 2024 Team Status: Inactive Member Role Status Dates Dr. Emerson Dotson DO Primary Care Provider Active Start: June 26, 2024 End: June 26, 2024 Dr. Emerson Dotson DO Referring Provider Active Start: June 26, 2024 End: June 26, 2024 Dr. Debbie Farfan MD Attending Provider Active Start: June 26, 2024 End: June 26, 2024 Team Status: Active Member Role Status Dates Dr. Emerson Dotson DO Primary Care Provider Active Start: June 26, 2024 Dr. Debbie Farfan MD Attending Provider Active Start: June 26, 2024 Dr. Debbie Farfan MD Referring Provider Active Start: June 26, 2024 Team Status: Active Member Role Status Dates Dr. Emerson Dotson DO Primary Care Provider Active Start: June 29, 2024 Dr. Kaylyn Egan MD Attending Provider Active Start: June 29, 2024 Dr. Kaylyn Egan MD Referring Provider Active Start: June 29, 2024 Dr. Debbie Farfan MD Other Provider Active Start: June 29, 2024 Team Status: Inactive Member Role Status Dates Dr. Emerson Dotson DO Primary Care Provider Active Start: June 26, 2024 End: June 26, 2024 Dr. Debbie Farfan MD Attending Provider Active Start: June 26, 2024 End: June 26, 2024 Dr. Debbie Farfan MD Referring Provider Active Start: June 26, 2024 End: June 26, 2024 Team Status: Inactive Member Role Status Dates Dr. Emerson Dotson DO Primary Care Provider Active Start: June 29, 2024 End: June 29, 2024 Dr. Kaylyn Egan MD Attending Provider Active Start: June 29, 2024 End: June 29, 2024 Dr. Kaylyn Egan MD Referring Provider Active Start: June 29, 2024 End: June 29, 2024 Dr. Debbie Farfan MD Other Provider Active Start: June 29, 2024 End: June 29, 2024 Team Status: Active Member Role/Relationship Status Dates Dr. Emerson Dotson DO Primary Care Provider Active Team Status: Inactive Member Role/Relationship Status Dates Dr. Emerson Dotson DO Primary Care Provider Active Start: June 01, 2024 End: June 01, 2024 Dr. Kaylyn Egan MD Attending Provider Active Start: June 01, 2024 End: June 01, 2024 Dr. Kaylyn Egan MD Referring Provider Active Start: June 01, 2024 End: June 01, 2024 Team Status: Inactive Member Role/Relationship Status Dates Dr. Emerson Dotson DO Primary Care Provider Active Start: June 18, 2024 End: June 18, 2024 Dr. Kaylyn Egan MD Attending Provider Active Start: June 18, 2024 End: June 18, 2024 Dr. Kaylyn Egan MD Referring Provider Active Start: June 18, 2024 End: June 18, 2024 Team Status: Inactive Member Role/Relationship Status Dates Dr. Emerson Dotson DO Primary Care Provider Active Start: June 24, 2024 End: June 24, 2024 Dr. Kaylyn Egan MD Attending Provider Active Start: June 24, 2024 End: June 24, 2024 Dr. Kaylyn Egan MD Referring Provider Active Start: June 24, 2024 End: June 24, 2024 Team Status: Inactive Member Role/Relationship Status Dates Dr. Emerson Dotson DO Primary Care Provider Active Start: June 26, 2024 End: June 26, 2024 Dr. Emerson Dotson DO Referring Provider Active Start: June 26, 2024 End: June 26, 2024 Dr. Debbie Farfan MD Attending Provider Active Start: June 26, 2024 End: June 26, 2024 Team Status: Inactive Member Role/Relationship Status Dates Dr. Emerson Dotson DO Primary Care Provider Active Start: June 26, 2024 End: June 26, 2024 Dr. Debbie Farfan MD Attending Provider Active Start: June 26, 2024 End: June 26, 2024 Dr. Debbie Farfan MD Referring Provider Active Start: June 26, 2024 End: June 26, 2024 Team Status: Inactive Member Role/Relationship Status Dates Dr. Emerson Dotson DO Primary Care Provider Active Start: June 29, 2024 End: June 29, 2024 Dr. Kaylyn Egan MD Attending Provider Active Start: June 29, 2024 End: June 29, 2024 Dr. Kaylyn Egan MD Referring Provider Active Start: June 29, 2024 End: June 29, 2024 Dr. Debbie Farfan MD Other Provider Active Start: June 29, 2024 End: June 29, 2024 Team Status: Inactive Member Role/Relationship Status Dates Dr. Emerson Dotson DO Primary Care Provider Active Start: August 18, 2024 Dr. Kaylyn Egan MD Attending Provider Active Start: August 18, 2024 Team Status: Inactive Member Role/Relationship Status Dates Dr. Emerson Dotson DO Primary Care Provider Active Start: September 14, 2024 End: September 14, 2024 Dr. Emerson Dotson DO Referring Provider Active Start: September 14, 2024 End: September 14, 2024 Dr. Vesta Flanagan DO Attending Provider Activ e Start: September 14, 2024 End: September 14, 2024 Team Status: Active Member Role/Relationship Status Dates Dr. Emerson Dotson DO Primary Care Provider Active Start: September 10, 2024 Dr. Sofie Rich MD Attending Provider Activ e Start: September 10, 2024 Dr. Kaylyn Egan MD Referring Provider Active Start: September 10, 2024 Team Status: Inactive Member Role/Relationship Status Dates Dr. Emerson Dotson DO Primary Care Provider Active Start: September 14, 2024 End: September 14, 2024 Dr. Emerson Dotson DO Referring Provider Active Start: September 14, 2024 End: September 14, 2024 Dr. Vesta Flanagan DO Attending Provider Activ e Start: September 14, 2024 End: September 14, 2024 Team Status: Inactive Member Role/Relationship Status Dates Dr. Emerson Dotson DO Primary Care Provider Active Start: September 18, 2024 End: September 18, 2024 Dr. Emerson Dotson DO Referring Provider Active Start: September 18, 2024 End: September 18, 2024 Dr. Kaylyn Egan MD Attending Provider Active Start: September 18, 2024 End: September 18, 2024 Team Status: Inactive Member Role/Relationship Status Dates Dr. Emerson Dotson DO Primary Care Provider Active Start: August 18, 2024 Dr. Kaylyn Egan MD Attending Provider Active Start: August 18, 2024 Team Status: Active Member Role/Relationship Status Dates Dr. Emerson Dotson DO Primary Care Provider Active Start: September 10, 2024 Dr. Sofie Rich MD Attending Provider Activ e Start: September 10, 2024 Dr. Kaylyn Egan MD Referring Provider Active Start: September 10, 2024 Team Status: Inactive Member Role/Relationship Status Dates Dr. Emerson Dotson DO Primary Care Provider Active Start: September 14, 2024 End: September 14, 2024 Dr. Emerson Dotson DO Referring Provider Active Start: September 14, 2024 End: September 14, 2024 Dr. Vesta Flanagan DO Attending Provider Activ e Start: September 14, 2024 End: September 14, 2024 Team Status: Inactive Member Role/Relationship Status Dates Dr. Emerson Dotson DO Primary Care Provider Active Start: September 18, 2024 End: September 18, 2024 Dr. Emerson Dotson DO Referring Provider Active Start: September 18, 2024 End: September 18, 2024 Dr. Kaylyn Egan MD Attending Provider Active Start: September 18, 2024 End: September 18, 2024 Team Status: Active Member Role/Relationship Status Dates Dr. Emerson Dotson DO Primary Care Provider Active Start: October 21, 2024 Dr. Emerson Dotson DO Attending Provider Active Start: October 21, 2024 Dr. Emerson Dotson DO Referring Provider Active Start: October 21, 2024 Team Status: Active Member Role/Relationship Status Dates Dr. Emerson Dotson DO Primary Care Provider Active Start: October 21, 2024 Dr. Bala Burger MD Attending Provider Active Start: October 21, 2024 Team Status: Inactive Member Role/Relationship Status Dates Dr. Emerson Dotson DO Primary Care Provider Active Start: October 28, 2024 End: October 28, 2024 Dr. Emerson Dotson DO Referring Provider Active Start: October 28, 2024 End: October 28, 2024 Dr. Kaylyn Egan MD Attending Provider Active Start: October 28, 2024 End: October 28, 2024 Team Status: Inactive Member Role/Relationship Status Dates Dr. Emerson Dotson DO Primary Care Provider Active Start: October 21, 2024 End: October 21, 2024 Dr. Emerson Dotson DO Attending Provider Active Start: October 21, 2024 End: October 21, 2024 Dr. Emerson Dotson DO Referring Provider Active Start: October 21, 2024 End: October 21, 2024 Goals (unrecognized section and content) Goals may be documented in a n alternate sectionGoals may be documented in an alternate sectionGoals may be documented in an alternate sectionGoals may be documented in an alternate sectionGoals may be documented in an alternate sectionGoals may be documented in an alternate sectionGoals may be documented in an alternate sectionGoals may be documented in an alternate sectionGoals may be documented in an alternate sectionGoals may be documented in an alternate sectionGoals may be documented in an alternate section INFORMATION SOURCE (unrecogn ized section and content) DATE CREATED AUTHOR 11/04/[address] [facility] FOR RECORDS PERTAINING TO PATIENTS WHO ARE OR HAVE BEEN ENROLLED IN A CHEMICAL DEPENDENCY/SUBSTANCEABUSE PROGRAM, SOME INFORMATION MAY BE OMITTED. This clinical summary was aggregated from multiple sources. Caution should be exercised in using it in the provision of clinical care. This summary normalizes information from multiple sources, and as a consequence, information in this document may materially change the coding, format and clinical context of patient data. In addition, data may be omitted in some cases. CLINICAL DECISIONS SHOULD BE BASED ON THE PRIMARY CLINICAL RECORDS. [employer] provides no warranty or guarantee of the accuracy or completeness of information in this document.
[2024-11-05] MEDS: Lactated Ringers 1,000 ML 15 ML IV (06:47)
--- NOTE | 2024-11-05 07:07 | PRE.ANES_ITS ---
ASA Classification* ASA Classification ASA Classification: 2 Assessment & Plan Anesthesia* Anesthesia Assessment Anesthesia Assessment: Discussed sedation and/or anesthesia options, risks, benefits, and alternatives with patient/parents/legal guardian/POA. Questions invited. The patient/parents/legal guardian/POA seems to understand and agrees to proceed with anesthesia plan. Reviewed the physical assessment, medical history, allergy history and patient home medications list prior to surgery/procedure/anesthetic and documented any changes. Performed airway and anesthesia risk assessments. Anesthesia Type Anesthesia Type: General (ETT d/t bad reflux per patient) History Source History Obtained from:: Patient and Chart Anesthesia Focused Assessment* Temperature: 97.0 F Pulse Rate: 73 Blood Pressure: 134/71 Respiratory Rate: 18 Pulse Ox: 97 Oxygen Delivery Method: Room Air Airway Assessment Mouth opens: >3 cm Mallampati Score: I Teeth Condition: Intact Neck Range of motion (ROM): Full ROM Labs Anesthesia Preop lab: CBC WBC, (4.4-11.0) 8.3 K/mm3 09/10/24, 13:01 RBC, (4.2-5.4) 5.02 M/mm3 09/10/24, 13:01 Hgb, (12.0-15.0) 13.9 g/dL 09/10/24, 13:01 Hct, (37-47) 42.1 % 09/10/24, 13:01 Plt Count, (150-450) 236 K/mm3 09/10/24, 13:01 CHEMISTRY Potassium, (3.3-5.1) 4.6 mmol/L 09/10/24, 13:01 Sodium, (133-145) 137 mmol/L 09/10/24, 13:01 BUN, (4-19) 16 mg/dL 09/10/24, 13:01 Creatinine, (0.70-1.20) 0.63 mg/dL L 09/10/24, 13:01 Glucose, (70-99) 111 mg/dL H 09/10/24, 13:01 COAG Pre-Assessment Diagnosis/Proposed Procedure Planned Operative Procedure(s): HYSTEROSCOPY D&C PER DR PAYTON RIGHT ESWL POSS CYSTO WITH RETROGRADES PER DR LUCAS Anesthesia History Anesthesia 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 When Was Last Pacemaker Check QUESTION #4 FULL TEXT: You/Your Family Experience fever (hyperthermia) with Anesthesia Last Oral Intake Last Oral intake: Last Oral Intake NPO since 22:00 11/05/24 06:40 Meds taken in AM with sips of Yes 11/05/24 06:40 water? Meds patient instructed to amlodipine 11/05/24 06:40 take am of surgery PONV PONV - resident services coordinator: PONV - resident services coordinator Female Yes 10/28/24 08:55 HX of Motion Sickness No 10/28/24 08:55 HX of N/V After Surgery No 10/28/24 08:55 Non-Smoker Yes 10/28/24 08:55 Duration of Surgery greater Yes 10/28/24 08:55 than 60 minutes Number of Risk Factors 3 10/28/24 08:55 PONV Score Moderate Risk 10/28/24 08:55 Height & Weight Height & Weight: Anesthesia: Height & Weight Height 5 ft 7 in 11/05/24 06:40 Weight: 98 kg 11/05/24 06:40 Body Mass Index (BMI) 33.8 11/05/24 06:40 Respiratory Assessment Respiratory Assessment - resident services coordinator: Respiratory Tract Infection Hx - resident services coordinator Hx Respiratory Tract Infection No 10/28/24 08:55 STOP Sleep Apnea STOP Sleep Apnea - resident services coordinator: STOP Sleep Apnea - resident services coordinator Hx Hypertension Yes: CONTROLLED WITH MED 10/28/24 08:55 Hx Sleep Apnea No 10/28/24 08:55 CPAP BIPAP Do you snore loudly (louder No 10/28/24 08:55 than talking or can be heard Do you often feel tired/ Yes 10/28/24 08:55 fatigued/ sleepy during daytime? Has anyone observed you stop No 10/28/24 08:55 breathing during sleep? STOP Results Positive 10/28/24 08:55 QUESTION #5 FULL TEXT : Do you snore loudly (louder than talking or can be heard through closed doors)? 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 Specify any problems Hx of Preganancy in last 3 No 10/28/24 08:55 Months Nurse Filling Out Transfusion DSCHRIBER 10/28/24 08:55 & Questions: Date: 10/28/24 10/28/24 08:55 Time: 08:55 10/28/24 08:55 Patient unable to answer at this time (ie. confused, unrespo /Reproduction History /Reproductive History - resident services coordinator: /Reproductive Hx- resident services coordinator Hx Now No 10/28/24 08:55 Gestational Age (in weeks): EDC: Hx Hx Para Hx Section SAB No 10/28/24 08:55 Active Medications Active Medications: Current Medications Generic Name Dose Route Start Last Admin Trade Name Freq PRN Reason Stop Dose Admin Cefazolin Sodium 2 gm/ Sodium 110 mls @ 200 mls/hr 11/05/24 07:30 Chloride IV 11/05/24 08:02 INTRAOP ONE Lactated Ringer's 1,000 mls @ 15 mls/hr 11/05/24 06:00 11/05/24 06:47 IV 15 mls/hr .Q48H ALPESH Administration PFSH Medical History Hypertension History of stress test Vaginal atrophy Wears glasses Post-menopausal Bladder disease Back pain Gastric reflux Non-smoker Home Medications ?Medication ?Instructions ?Recorded ?Last Taken ?Type estradiol 0.01% (0.1 mg/gram) 1 g vaginal 3XW 06/26/24 11/01/24 History vaginal cream solifenacin 5 mg tablet 5 mg PO QDAY 06/26/24 History Lactobacillus acidophilus 250 500 mmu cells PO DAILY 0 09/10/24 11/04/24 History million cell capsule (Probiotic Acidophilus) ascorbic acid (vitamin C) 500 mg 500 mg PO DAILY 09/1011/04/24 History chewable tablet (C-500) amlodipine 10 mg tablet 10 mg PO QDAY 10/28/2411/05 History Allergy/AdvReac Type Severity Reaction Status Date / Time No Known Allergies Allergy Verified 11/05/24 06:38 Family History Mother Heart disease Father History of kidney cancer Surgical History Hx of tonsillectomy Social History number of children: 0 Smoking Status: Never smoker alcohol intake: current Alcohol type: wine substance use type: does not use what type of physical activity do you participate in: none seatbelt use: always do you feel safe at home: Yes additional social history: Review of Systems (Anesthesia) ROS Narrative System reviewed and no additional complaints, except as documented.
--- NOTE | 2024-11-05 07:25 | HP.PCM_ITS ---
History and Physical Date of Admission: 11/05/24 Date of Service: 10/28/24 MR#: [id number] Acct: [id number] Name: GERARDO MOLINA Rep #: [id number] : 1950 Provider: Dr. 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 Required: No Accompanied by: Self Is patient in pain?: No Allergies No Known Allergies Allergy (Verified 10/28/24 08:53) Medications ?Medication ?Instructions ?Recorded ?Confirmed ?Type estradiol 0.01% (0.1 mg/gram) 1 g vaginal 3XW 06/26/24 10/28/24 Histor y vaginal cream solifenacin 5 mg tablet 5 mg PO QDAY 06/26/24 10/28/24 History Lactobacillus acidophilus 250 500 mmu cells PO DAILY 09/10/24 10/28/24 History million cell capsule (Probiotic Acidophilus) ascorbic acid (vitamin C) 500 mg 500 mg PO DAILY 09/10/24 10/28/24 Histor y chewable tablet (C-500) amlodipine 10 mg tablet 10 mg PO QDAY 10/28/24 10/28/24 History Have you fallen in the past year?: No PFSH Medical History Hypertension History of stress test Vaginal atrophy Wears glasses Post-menopausal Bladder disease Back pain Gastric reflux Non-smoker Surgical History Hx of tonsillectomy Family History Mother Heart disease Father History of kidney cancer Social History number of children: 0 Smoking Status: Never smoker alcohol intake: current Alcohol type: wine substance use type: does not use what type of physical activity do you participate in: none seatbelt use: always do you feel safe at home: Yes additional social history: HPI HPI Urology Chief Complaint: preoperatove visit with kanika culture and consent Details: GERARDO MOLINA, is a 74 F. The patient is here for preoperative history and physical prior to right renal extracorporeal shockwave lithotripsy, possible cystoscopy with right retrograde pyelogram, right ureteral stent insertion. There are no new symptoms since the last visit. The procedure, recovery and expectations were explained. The risks, benefits and alternatives were discussed, including but not limited to, the risks of anesthesia, bleeding, infection, injury, pain and the need for further intervention. We have discussed the risk of exposure to and/or potential harm posed by the COVID-19 virus with having a surgery/procedure at this time. A joint decision was made at this time to proceed with the scheduled surgery/procedure as indicated on the consent form. She is not sure how happy she is with the solifenacin and we decided to treat the stone and see how she does. ROS Const Constitutional: No chills, fatigue, fever(s), headache(s), night sweats, weakness, weight change, abnormal sleep pattern or change in appetite Eyes Eyes: No change in vision ENT ENT: No headache(s) or dry mouth Resp Respiratory: No cough, chest congestion, shortness of breath or wheezing Cardio Cardiology: Positive for other (No chest pain.); No shortness of breath, irregular heart rhythm or lightheadedness Gastro GI: Positive for other (No nausea.); No abdominal pain, change in bowel habits, constipation, diarrhea or vomiting Musc Musculoskeletal: No abnormal gait Skin Skin: No yellowing of the eye, lesions, itchy eyes, rash or skin ulcer Neuro Neurology: No abnormal gait, confusion, dizziness, weakness, headache(s) or memory loss Psych Psychiatric: No abnormal sleep pattern, No change in appetite, No confusion and No memory loss Endo Endocrine: No fatigue, increased thirst/drinking or weight change Aller/Imm Allergy/Immunologic: No itchy eyes or wheezing Jose Martin/Lymp Hematologic/Lymphatic: No easy bleeding, easy bruising or enlarged lymph nodes Exam Const General: cooperative, healthy appearing, comfortable and no acute distress HENMT Head: normocephalic and atraumatic Ears: hearing grossly normal bilaterally and external ears normal Nose: external nose normal Eyes General: appearance normal, both eyes and all related structures Neck Neck: normal visual inspection and trachea midline Chest Chest palpation & inspection: normal inspection of the chest Resp Effort & Inspection: normal respiratory effort, able to speak in complete sentences and symmetric chest movement Cardio Rate: regular rate GI Inspection: normal to inspection Palpation: soft and nontender General: No CVA tenderness Skin General: no rashes or lesions noted Neuro General: patient alert, patient awake, patient oriented x3 and CN's II-XI intact bilaterally Extrem General: normal to inspection Psych Appearance: grossly normal and well kempt Mental Status: mental status grossly normal Results POC UA Auto w/o Microscopy Office Urine Color ? Last Edit by Nancy Washington on 10/28/24 08:10 Office Urine Clarity ? Last Edit by Nancy Washington on 10/28/24 08:10 Office Urine Glucose Negative Last Edit by Nancy Washington on 10/28/24 08:10 Office Urine Ketones Negative Last Edit by Nancy Washington on 10/28/24 08:10 Office Urine Bilirubin Negative Last Edit by Nancy Washington on 10/28/24 08:1 0 Office Urine Urobilinogen Negative Last Edit by Nancy Washington on 10/28/24 08:10 Off Ur Spec [place] 1.025 Last Edit by Nancy Washington on 10/28/24 08:10 Office Urine pH 6 Last Edit by Nancy Washington on 10/28/24 08:10 Office Urine Protein Negative Last Edit by Nancy Washington on 10/28/24 08:10 Office Urine Blood Negative Last Edit by Nancy Washington on 10/28/24 08:10 Office Urine Blood Hemolyzed Negative Last Edit by Nancy Washington on 5 08:10 Office Urine Nitrate Negative Last Edit by Nancy Washington on 10/28/24 08:10 Off Ur Leukocytes Negatve Last Edit by Nancy Washington on 10/28/24 08:10 Coding Level of Care Code Off vis,est,level 4 Diagnoses Kidney stones N20.0 Urinary tract infection without hematuria, site unspecified N39.0 Urinary tract infection type: site unspecified Hematuria presence: without hematuria Overactive bladder N32.81 Mixed incontinence N39.46 Nocturia R35.1 Endometrial thickening on ultrasound R93.89 Vaginal atrophy N95.2 Assessment and Plan Assessment and Plan (1) Kidney stones: Status: Acute (2) UTI (urinary tract infection): Status: Acute Qualifiers: Urinary tract infection type: site unspecified Hematuria presence: without hematuria Qualified Code(s): N39.0 - Urinary tract infection, site not specified (3) Overactive bladder: Status: Acute (4) Mixed incontinence: Status: Acute (5) Nocturia: Status: Acute (6) Endometrial thickening on ultrasound: Status: Acute (7) Vaginal atrophy: Status: Acute Orders: Orders POC UA Auto w/o Microscopy Today N32.81 - Overactive bladder Plan urine culture today proceed with surgery as scheduled continue probiotics and solifenacin Clinical Quality Measures Falls Risk Screening/Assistive Devices Have you fallen in the past year?: No 10/28/24 [id number] <Electronically signed by Kaylyn Egan MD> Date Kaylyn Egan MD
--- NOTE | 2024-11-05 07:30 | EMB_PTH ---
PATIENT: GERARDO MOLINA [place] [facility] [place][id number] AGE/SX: 74/F ROOM: RE11/05/[address]: Dr. Kaylyn Egan MD : 1950 BED: DIS: 11/05/2024 SPEC #: [id number] RECD: 11/05/24 09:36 STATUS: KVNG REChristian #: [id number] NORMA: 11/05/24 07:[address]: Vesta Flanagan DEPT: SURGICAL PATHOLOGY RECD BY: Freddy Zaldivar ENTERED: 11/05/24 11:01 SP TYPE: ENDOM BX/C OTHR DR: MD Dr. Emerson Hubbard, DO Tissues: A - Endometrium, NOS Procedures: Surgery Specimen Level IV HEADER OPERATION: Right renal ESWL, hysteroscopy, dilation and curettage PRE-OP DIAGNOSIS: Endometrial thickening on ultrasound, kidney stones TISSUE SUBMITTED: A- Endometrial curettings MICROSCOPIC DIAGNOSIS A. Endometrium, curettage: * Polypoid fragment of benign endometrium, suggestive of endometrial polyp. MICROSCOPIC DESCRIPTION Slides are reviewed. GROSS DESCRIPTION A. Received in formalin labeled with the patient's name and date of . Designated as endometrial curettings is a 2.4 x 1.0 x 0.2 cm aggregate of hemorrhagic mucoid material and pink-red tissue fragments. Entirely submitted in 1 cassette. [place] 11/05/2024 CPT:98176
--- NOTE | 2024-11-05 07:43 | HP.PCM_ITS ---
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: No Is patient in pain?: No Allergies No Known Allergies Allergy (Verified 09/14/24 08:42) Medications ?Medication ?Instructions ?Recorded ?Confirmed ?Type estradiol 0.01% (0.1 mg/gram) 1 g vaginal 3XW 06/26/24 09/14/24 Histor y vaginal cream solifenacin 5 mg tablet 5 mg PO QDAY 06/26/24 09/14/24 History Lactobacillus acidophilus 250 500 mmu cells PO DAILY 09/10/24 09/14/24 History million cell capsule (Probiotic Acidophilus) ascorbic acid (vitamin C) 500 mg 500 mg PO DAILY 09/10/24 09/14/24 Histor y chewable tablet (C-500) Is last menstrual period known: No Post menopausal: Yes Patient : No : No PFSH Medical History Wears glasses Post-menopausal Bladder disease Back pain Gastric reflux Non-smoker Surgical History Hx of tonsillectomy Family History Mother Heart disease Father History of kidney cancer Social History number of children: 0 Smoking Status: Never smoker alcohol intake: current Alcohol type: wine seatbelt use: always do you feel safe at home: Yes additional social history: HPI consult thickened endometrium Jignesh combo 09/24 Details: GERARDO MOLINA is a 74 year old who presents for preoperative evaluation. She is scheduled for a hysteroscopy D&C following an ESWL treatment with Dr. Egan. The D&C is scheduled due to an incidental finding of thickened endometrial tissue measuring 0.8cm. She denies any postmenopausal bleeding. We discussed that without bleeding and an endometrium less than 11 mm that the chance of malignancy is very rare. Nonetheless, She is going in for ESWL for bilateral non-obstructing kidney stones and we decided that since she was going under anesthesia we would attempt a D&C. Office biopsy was not successful due to cervical stenosis. History 0 Elective abortions Hx Para Spontaneous abortions Hx # Term Pregnancies Ectopic pregnancies Hx # Pregnancies Multiple births # of living children ROS Const ROS Unobtainable: All systems reviewed & are unremarkable except as noted in H Resp Resp: Reports system reviewed and no additional complaints, except as documented; Denies cough GI GI: Reports as per HPI Psych Psych: Reports system reviewed and no additional complaints, except as documented Exam Const General: cooperative, healthy appearing, comfortable and no acute distress Resp Effort & Inspection: normal respiratory effort Skin General: no rashes or lesions noted Psych Appearance: grossly normal Speech and Movement: speech and movement normal Coding Level of Care Code Off vis,est,level 4 Diagnoses Hypertension I10 Thickened endometrium R93.89 Bilateral kidney stones N20.0 Assessment and Plan Assessment and Plan (1) Hypertension: Status: Chronic (2) Thickened endometrium: Status: Acute Comment: endometrial biopsy unable to be done, US ordered and if thickened needs d and c pap. (3) Bilateral kidney stones: Status: Acute Plan After discussing the patient's diagnosis and treatment plan options, patient wishes to proceed with surgical management. I have discussed with the patient the risks, benefits, and alternatives of the procedure which include but are not limited to risks of anesthesia, bleeding, infection, possible damage to bowel, bladder, or surrounding vasculature which could lead to additional surgery to evaluate any complications. Patient agrees to procedure and wishes to proceed. ACOG/uptodate references given for additional information regarding procedure. plan for hysteroscopy D&C encouraged to see her pcp for hypertenion treatment.
--- NOTE | 2024-11-05 07:44 | DCINST_ITS ---
Discharge Instructions DC O2, CPAP, BIPAP needs Home O2 Discharge instructions: No Dressing / Incision Discharge Activity: Return to Normal Activity, May Shower and May Take a Tub Bath (after 1 week) May resume sexual activity in: 1-2 weeks Weight Bearing Status: Weight bearing as tolerated Lifting Restrictions: none Dressing / Incision Call your doctor if you observe: Fever of 101 or Higher, Using more than 1 pad per hour, Shortness of breath and Uncontrolled pain Follow Up Care Please Follow Up With: Vesta Flanagan DO When: Call [phone] to schedule appointment. Test Results: Test results from this visit will be discussed in further detail at your follow- up appointment, if applicable. Discharge Plan Admission Attending Provider: Kaylyn Egan Primary Care Provider: Emerson Dotson Consulting Providers: Vesta Flanagan Instructions Print Language: Belizean Discharge Orders/Prescriptions Prescriptions: No Action estradiol 0.01 % (0.1 mg/gram) cream 1 g vaginal 3XW solifenacin 5 mg tablet 5 mg PO QDAY amlodipine 10 mg tablet 10 mg PO QDAY Probiotic Acidophilus 250 million cell capsule 500 mmu cells PO DAILY ascorbic acid (vitamin C) [C-500] 500 mg tablet,chewable 500 mg PO DAILY Referrals / Follow Up: Emerson Dotson DO [Primary Care Provider, Family Practice] Disposition Disposition (needs filled in before D/C Order can be placed): Home, Self Care
[2024-11-05] MEDS: Midazolam 2 MG/2 ML Syringe IV (07:47)
[2024-11-05] MEDS: Lidocaine 1% (5 ml sdv) 5 ML Vial IV (07:55)
[2024-11-05] MEDS: fentaNYL 100 MCG/2 ML Ampul IV (07:55)
[2024-11-05] MEDS: Cefazolin 1 GM/5 ML Vial 2 GM IV (07:58)
--- NOTE | 2024-11-05 08:02 | OP.PCM_ITS ---
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: No Type of Anesthesia: General RN Documented Start/Stop Times: Operation Date: 11/05/24 07:30 Case Time Into Pre-Op 11/05/24 05:55 Anesthesia Start 11/05/24 07:47 Into Room 11/05/24 07:47 Out of Pre-Op 11/05/24 07:47 Procedure Start 11/05/24 08:02 Procedure End 11/05/24 08:52 Anesthesia End 11/05/24 09:02 Out of Room 11/05/24 09:02 Into Recovery 11/05/24 09:04 Procedure Start Time: 08:02 Procedure Stop Time: 08:52 Select all DRAINS/GRAFTS/IMPLANTS that apply: None Estimated Blood Loss: <5cc Specimen collected: No Description of surgery: The patient is a 74-year-old female with a right 7 mm stone who presents for definitive surgical intervention. Informed consent was obtained. The patient was taken to the operating room and placed on the operating room table. Anesthesia monitored the head, neck, airway, IV access and vital signs throughout the case. Once anesthesia was appropriate ministered, she was positioned on the lithotripsy table and the stone was clearly identified using fluoroscopy. 3000 shocks were applied to the stone and appeared to be well fragmented at the conclusion of the case. At this time the the case was turned over to Dr. Valdes for her portion of the procedure. Please see her dictation for further information. Surgical Findings: 7mm stone Complications Complications: No Admit VTE Documentation VTE Present on Admission: Yes VTE Mechan Device Prophylaxis: SCD's VTE Pharm Prophylaxis ordered?: No Reason prophylaxis not ordered: Treatment Not Indicated
--- NOTE | 2024-11-05 08:06 | DCINST_ITS ---
Discharge Instructions Diet Discharge Diet: No restrictions Activity Discharge Activity: Return to Normal Activity May resume sexual activity in: 1-2 weeks Weight Bearing Status: Weight bearing as tolerated Dressing / Incision Call your doctor if you observe: Fever of 101 or Higher, Using more than 1 pad per hour, Shortness of breath and Uncontrolled pain Follow Up Care Please Follow Up With: Vesta Flanagan DO Test Results: Test results from this visit will be discussed in further detail at your follow- up appointment, if applicable. Discharge Plan Admission Attending Provider: Kaylyn Egan Primary Care Provider: Emerson Dotson Consulting Providers: Vesta Flanagan Instructions Print Language: Tunisian Discharge Orders/Prescriptions Prescriptions: New oxycodone-acetaminophen 5-325 mg tablet 1 tab PO Q8H PRN (Reason: pain) 3 Days Qty: 10 0RF cephalexin 500 mg capsule 500 mg PO Q12 3 Days Qty: 6 0RF ondansetron 4 mg tablet,disintegrating 4 mg PO Q8H PRN (Reason: nausea and vomiting) Qty: 10 0RF Continued estradiol 0.01 % (0.1 mg/gram) cream 1 g vaginal 3XW solifenacin 5 mg tablet 5 mg PO QDAY amlodipine 10 mg tablet 10 mg PO QDAY Probiotic Acidophilus 250 million cell capsule 500 mmu cells PO DAILY ascorbic acid (vitamin C) [C-500] 500 mg tablet,chewable 500 mg PO DAILY Referrals / Follow Up: Emerson Dotson DO [Primary Care Provider, Family Practice] Disposition Disposition (needs filled in before D/C Order can be placed): Home, Self Care
[2024-11-05] MEDS: Lactated Ringers 2,000 ML 2000 ML IV (08:42)
--- NOTE | 2024-11-05 09:09 | PCM.POST.ANE ---
Anesthesia: Postop Eval I Current Vital Signs Temperature: 97.9 F Pulse Rate: 77 Blood Pressure: 135/71 Respiratory Rate: 16 Pulse Ox: 94 Oxygen Delivery Method: Nasal Cannula Oxygen Flow Rate (L/min): 3 Assessment Airway patent: Yes Spontaneous unlabored respirations: Yes Mental status: Awake and Calm nausea: No Vomiting: No Anesthesia Complication: No Fluid Hydration Crystalloid volume administer (ml): 1,400 Total IV fluid infused: 1,400 Progress Note Anesthesia document: Postop Eval 1 completed: Yes
--- NOTE | 2024-11-05 09:18 | OP.PCM_ITS ---
Multi Select Codes Urinary/Genital Urinary/Genital CPT Codes: 49222 Hysteroscopy,EMC, Polypectomy Operative Report (Standard) Operative Information Date of Procedure: 11/05/24 Pre-Operative Diagnosis: thickened postmenopausal endometrial thickening . right nephrolithiasis Post-Operative Diagnosis: Thickened postmenopausal endometrial thickening . right nephrolithiasis Surgery/Procedure Performed: Hysteroscopy Dilation and curettage certified cytotechnologist: No Type of Anesthesia: General RN Documented Start/Stop Times: Operation Date: 11/05/24 07:30 Case Time Into Pre-Op 11/05/24 05:55 Anesthesia Start 11/05/24 07:47 Into Room 11/05/24 07:47 Out of Pre-Op 11/05/24 07:47 Procedure Start 11/05/24 08:02 Procedure End 11/05/24 08:52 Anesthesia End 11/05/24 09:02 Out of Room 11/05/24 09:02 Into Recovery 11/05/24 09:04 Procedure Start Time: 08:02 Procedure Stop Time: 08:52 Select all DRAINS/GRAFTS/IMPLANTS that apply: None Estimated Blood Loss: 0 Specimen collected: Yes Description of specimen(s) removed: endometrial curettings Description of surgery: Patient was prepped and draped in a normal sterile fashion under MAC anesthesia. A weighted speculum was placed in the vagina and the anterior lip of the cervix was grasped with a single-tooth tenaculum. A paracervical block was placed with 1% lidocaine. Cervix was progressively dilated to allow passage of a 5 mm hysteroscope. The lining was fully visualized and noted to have polyp like structures present . A suspected tiny fundal perforation was noted. no bleeding was noted. A gentle, shallow Curettage was performed to avoid the site of the perforation and the specimen was sent to pathology. All instruments were removed from the vagina and excellent hemostasis was noted. Patient was awoken and taken to recovery in stable condition. Surgical Findings: thickened polypoid appearing cervix, smooth endometrium Complications Complications: No Admit VTE Documentation VTE Present on Admission: No VTE Mechan Device Prophylaxis: SCD's VTE Pharm Prophylaxis ordered?: No
--- NOTE | 2024-11-05 12:57 | POSTOPAN2_ITS ---
Anesthesia Postop Eval I Sum Postop Eval Completion status Anesthesia document: Postop Eval 1 completed: Yes Anesthesia Postop Eval I Summary Anesthesia Postop Eval I Summary: Anesthesia Postop Eval I: Assessment Summary Airway patent Yes 11/05/24 09:10 [email or web address] Spontaneous unlabored Yes 11/05/24 09:10 [email or web address] respirations Mental status Awake,Calm 11/05/24 09:10 [email or web address] nausea No 11/05/24 09:10 [email or web address] Vomiting No 11/05/24 09:10 [email or web address] Anesthesia Postop Eval I: Fluid Summary Crystalloid volume administer 1,400 11/05/24 09:10 [email or web address] (ml) Colloids volume administered ( ml) Blood Product volume administered (ml) Total IV fluid infused 1,400 11/05/24 09:10 [email or web address] Anesthesia Postop Eval I: Summary Notes Anesthesia Complication No 11/05/24 09:10 [email or web address] Anesthesia Complication Comment: Post-operative progress note Anesthesia: Postop Eval II Evaluation Mental status: Awake and Calm Pain Level: 0 nausea: No Vomiting: No Complications Anesthesia Complication: No
--- NOTE | 2024-11-05 12:57 | PCM.POSTANE2 ---
Anesthesia Postop Eval I Sum Postop Eval Completion status Anesthesia document: Postop Eval 1 completed: Yes Anesthesia Postop Eval I Summary Anesthesia Postop Eval I Summary: Anesthesia Postop Eval I: Assessment Summary Airway patent Yes 11/05/24 09:10 [email or web address] Spontaneous unlabored Yes 11/05/24 09:10 [email or web address] respirations Mental status Awake,Calm 11/05/24 09:10 [email or web address] nausea No 11/05/24 09:10 [email or web address] Vomiting No 11/05/24 09:10 [email or web address] Anesthesia Postop Eval I: Fluid Summary Crystalloid volume administer 1,400 11/05/24 09:10 [email or web address] (ml) Colloids volume administered ( ml) Blood Product volume administered (ml) Total IV fluid infused 1,400 11/05/24 09:10 [email or web address] Anesthesia Postop Eval I: Summary Notes Anesthesia Complication No 11/05/24 09:10 [email or web address] Anesthesia Complication Comment: Post-operative progress note Anesthesia: Postop Eval II Evaluation Mental status: Awake and Calm Pain Level: 0 nausea: No Vomiting: No Complications Anesthesia Complication: No
== END 2024-11-05 10:51 | disposition home or self-care (01) ==
LOC: SDC 05:52 → AC 05:53
PROVIDERS: PCP Family Medicine; Referring Provider Urology; Visit Provider Urology
PROC: (CPT 50590; principal; 2024-11-05 07:20)
DX: N20.0 Calculus of kidney (principal); N39.0 Urinary tract infection, site not specified; I10 Essential (primary) hypertension; N39.46 Mixed incontinence; R35.1 Nocturia; N32.81 Overactive bladder; K21.9 Gastro-esophageal reflux disease without esophagitis; N95.8 Other specified menopausal and perimenopausal disorders; N84.0 Polyp of corpus uteri
CPT/HCPCS: 50590; 58558; 00873; 36415; 80048; 85027; 86850; 86900; 86901; 88305; 93005; J2405

== ENCOUNTER 2024-11-05 21:11 | Emergency (ER) | payer MEDICARE, OTHER, SELFPAY ==
[2024-11-05 21:12] VITALS: BP 147/78; PULSE 95; RESP 16; TEMP 36.6; O2SAT 96; BMI 34.0
--- OUTSIDE RECORDS SUMMARY | 2024-11-05 22:02 | XMS RPT_ITS | CCD ---
Author Organization [facility] Care Team Providers Care Manager Of Marketing Name Role Phone Dr. Emerson Dotson Primary Care Provider [phone] Dr. Emerson Dotson Referring Provider VALERIE Fuller Attending Provider Dr. Emerson Dotson Primary Care Provider [phone] Dr. Emerson Dotson Referring Provider VALERIE Mcdowell Attending Provider Dr. Emerson Dotson DO Primary Care Provider Dr. Emerson Dotson DO Referring Provider [phone] Harshal Mcdowell Attending Provider Dr. Emerson Dotson DO Primary Care Provider Dr. Emerson Dotson DO Referring Provider Harshal Mcdowell Attending Provider Dr. Kaylyn Egan MD Attending Provider Dr. Kaylyn Egan MD Referring Provider Dr. Debbie Farfan MD Attending Provider Dr. Debbie Farfan MD Referring Provider Dr. Debbie Farfan MD Other Provider Dr. Emerson Dotson DO Primary Care Provider [phone] Jignesh QURESHI, Dr. Patiño Attending Provider Dr. Kaylyn Egan MD Referring Provider Mauri HERNANDEZ Dr. Emerson Referring Provider [phone] Estela Michel DO, Dr. Lemons Attending Provider Layla QURESHI, Dr. Carrizales Attending Provider Mauri HERNANDEZ, Dr. Norman Primary Care Provider Jignesh QURESHI, Dr. Patiño Attending Provider Jignesh QURESHI, Dr. Patiño Referring Provider Mauri HERNANDEZ, Dr. Norman Referring Provider [phone] Mauri HERNANDEZ, Dr. Norman Attending Provider [phone] Tao QURESHI, Dr. Mckenna Attending Provider Mauri, Emerson Referring Unavailable Mauri, Emerson Primary Care Unavailable Kaylyn Egan Attending Unavailable Mauri, Emerson Referring Unavailable Tanner Harpre Attending Unavailable Mauri, Emerson Primary Care Unavailable Mauri, Emerson Referring Unavailable Mauri, Emerson Primary Care Unavailable Harshal Mcdowell Attending Unavailable Vesta Flanagan Attending Unavailabl e Vesta Flanagan Consulting Unavailabl e Mauri, Emerson Primary Care Unavailable Kaylyn Egan Referring Unavailable Kaylyn Egan Consulting Unavailable Mauri, Emerson Referring Unavailable Debbie Farfan Attending Unavailable Mauri, Emerson Primary Care Unavailable Mauri, Emerson Referring Unavailable Vesta Flanagan Attending Unavailabl e Mauri, Emerson Primary Care Unavailable Mauri, Emerson Primary Care Unavailable Mauri, Emerson Referring Unavailable Kaylyn Egan Attending Unavailable Bala Burger Attending Unavailable Mauri, Emerson Primary Care Unavailable Kaylyn Egan Referring Unavailable Sofie Rich Attending Unavailabl e Mauri, Emerson Primary Care Unavailable Kaylyn Egan Referring Unavailable Vesta Flanagan Consulting Unavailabl e Mauri, Emerson Primary Care Unavailable Kaylyn Egan Attending Unavailable Kaylyn Egan Consulting Unavailable Mauri, Emerson Primary Care Unavailable Harshal Mcdowell Attending Unavailable Mauri, Emerson Primary Care Unavailable Kaylyn Egan Attending Unavailable Kaylyn Egan Referring Unavailable MauriEmerson Primary Care Unavailable Kaylyn Egan Attending Unavailable Kaylyn Egan Referring Unavailable Debbie Farfan Consulting Unavailable MauriEmerson Primary Care Unavailable Kaylyn Egan Attending Unavailable Kaylyn Egan Referring Unavailable Mauri, Emerson Primary Care Unavailable Kaylyn Egan Attending Unavailable Kaylyn Egan Referring Unavailable Kaylyn Egan Referring Unavailable Vesta Flanagan Consulting [facility] Kaylyn Black Attending Unavailable Mauri, Emerson Primary Care Unavailable Tanner Harper Attending Unavailable Mauri, Emerson Primary Care Unavailable Debbie Farfan Referring Unavailable Debbie Farfan Attending Unavailable Mauri, Emerson Primary Care Unavailable Mauri, Emerson Referring Unavailable Mauri, Emerson Primary Care Unavailable MauriEmerson Attending Unavailable Medications Current Medications Medication Drug [...] Discontinued 10 mg PO As Directed 30 0 July 14, 2022 12:00am February 13, 2023 [...] Kidney stone; Translations: [Calculus of kidney] Onset: 11-05-2024 09-18-2024 Episodic Coronary atherosclerosis and other heart disease (1 source) Atherosclerotic heart disease of [place] coronary artery without angina pectoris; Translations: [Atherosclerotic heart disease of [place] coronary artery without angina pectoris] Onset: 10-30-2024 [...] Test Name Value Interpretation Reference Range Facility Discharge Instructionon 10-19 Discharge Instruction [facility] Medical Records Department [address] [place] [address] Instructions for Home/Discharge Instructions 11/05/24 0806 MR#: [id number] Acct: [id number] Name: GERARDO MOLINA Rep #: [id number] : 1950 74 From: Kaylyn Egan MD PCP: Dr. Emerson Dotson DO Status:REG [facility] Discharge Instructions Diet Discharge Diet: No restrictions Activity Discharge Activity: Return to Normal Activity May resume sexual activity in: 1-2 weeks Weight Bearing Status: Weight bearing as tolerated Dressing / Incision Call your doctor if you observe: Fever of 101 or Higher, Using more than 1 pad per hour, Shortness of breath and Uncontrolled pain Follow Up Care Please Follow Up With: Vesta Flanagan DO Test Results: Test results from this visit will be discussed in further detail at your follow-up appointment, if applicable. Discharge Plan Admission Attending Provider: Kaylyn Egan Primary Care Provider: Emerson Dotson Consulting Providers: Vesta Flanagan Instructions Print Language: Croatian Discharge Orders/Prescriptions Prescriptions: New oxycodone-acetaminophe n 5-325 mg tablet 1 tab PO Q8H PRN (Reason: pain) 3 Days Qty: 10 0RF cephalexin 500 mg capsule 500 mg PO Q12 3 Days Qty: 6 0RF ondansetron 4 mg tablet,disintegrating 4 mg PO Q8H PRN (Reason: nausea and vomiting) Qty: 10 0RF Continued estradiol 0.01 % (0.1 mg/gram) cream 1 g vaginal 3XW solifenacin 5 mg tablet 5 mg PO QDAY amlodipine 10 mg tablet 10 mg PO QDAY Probiotic Acidophilus 250 million cell capsule 500 mmu cells PO DAILY ascorbic acid (vitamin C) [C-500] 500 mg tablet,chewable 500 mg PO DAILY Referrals / Follow Up: Emerson Dotson DO [Primary Care Provider, Family Practice] Disposition Disposition (needs filled in before D/C Order can be placed): Home, Self Care 11/05/24 0815 Kaylyn Egan MD CC: Dr. Vesta Flanagan DO; Dr. Emerson Dotson DO Signed Normal [facility] Discharge Instruction [facility] Medical Records Department [address] [place] [address] Instructions for Home/Discharge Instructions 11/05/24 0744 MR#: [id number] Acct: [id number] Name: GERARDO MOLINA Rep #: [id number] : 1950 74 From: Vesta Flanagan DO PCP: Dr. Emerson Dotson DO Status:REG SDC Discharge Instructions DC O2, CPAP, BIPAP needs Home O2 Discharge instructions: No Dressing / Incision Discharge Activity: Return to Normal Activity, May Shower and May Take a Tub Bath (after 1 week) May resume sexual activity in: 1-2 weeks Weight Bearing Status: Weight bearing as tolerated Lifting Restrictions: none Dressing / Incision Call your doctor if you observe: Fever of 101 or Higher, Using more than 1 pad per hour, Shortness of breath and Uncontrolled pain Follow Up Care Please Follow Up With: Vesta Flanagan DO When: Call [phone] to schedule appointment. Test Results: Test results from this visit will be discussed in further detail at your follow-up appointment, if applicable. Discharge Plan Admission Attending Provider: Kaylyn Egan Primary Care Provider: Emerson Dotson Consulting Providers: Vesta Flanagan Instructions Print Language: Croatian Discharge Orders/Prescriptions Prescriptions: No Action estradiol 0.01 % (0.1 mg/gram) cream 1 g vaginal 3XW solifenacin 5 mg tablet 5 mg PO QDAY amlodipine 10 mg tablet 10 mg PO QDAY Probiotic Acidophilus 250 million cell capsule 500 mmu cells PO DAILY ascorbic acid (vitamin C) [C-500] 500 mg tablet,chewable 500 mg PO DAILY Referrals / Follow Up: Emerson Dotson DO [Primary Care Provider, Family Practice] Disposition Disposition (needs filled in before D/C Order can be placed): Home, Self Care 11/05/24 0744 Vesta Flanagan DO CC: Dr. Vesta Flanagan DO; Dr. Emerson Dotson DO Signed [facility] MR/POSTOP.ANEon 11-05-2024 MR/POSTOP.[facility] Medical Records Department [address] [place] [address] Anesthesia Postop Eval I 11/05/24908 MR#: [id number] Acct: [id number] Name: GERARDO MOLINA Rep #: [id number] : 1950 74 From: Rod Reinoso CRNA PCP: Dr. Emerson Dotson DO Status:REG SDC Y Race: C Location: [place] [address] Anesthesia: Postop Eval I Current Vital Signs Temperature: 97.9 F Pulse Rate: 77 Blood Pressure: 135/71 Respiratory Rate: 16 Pulse Ox: 94 Oxygen Delivery Method: Nasal Cannula Oxygen Flow Rate (L/min): 3 Assessment Airway patent: Yes Spontaneous unlabored respirations: Yes Mental status: Awake and Calm nausea: No Vomiting: No Anesthesia Complication: No Fluid Hydration Crystalloid volume administer (ml): 1,400 Total IV fluid infused: 1,400 Progress Note Anesthesia document: Postop Eval 1 completed: Yes 11/05/24909 Date Rod Sotoigneulalia Signature: Date CC: Signed [facility] MR/[id number] 11-05-2024 MR/POSTOPAN2 [facility] Medical Records Department [address] [facility] [place] [address] Anesthesia Postop Eval II 11/05/24 1257 MR#: [id number] Acct: [id number] Name: GERARDO MOLINA Rep #: [id number] : 1950 74 From: Nevaeh Brewer CRNA PCP: Dr. 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 PULVERIZER OPERATOR.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 Vomiting No 11/05/24 09:10 COAL PULVERIZER OPERATOR.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 Anesthesia Postop Eval I: Fluid Summary Crystalloid volume administer 1,400 11/05/24 09:10 COAL PULVERIZER OPERATOR.PKEL (ml) Colloids volume administered ( ml) Blood Product volume administered (ml) Total IV fluid infused 1,400 11/05/24 09:10 COAL PULVERIZER OPERATOR.[email or web address] Anesthesia Postop Eval I: Summary Notes Anesthesia Complication No 11/05/24 09:10 COAL PULVERIZER OPERATOR.[email or web address] Anesthesia Complication Comment: Post-operative progress note Anesthesia: Postop Eval II Evaluation Mental status: Awake and Calm Pain Level: 0 nausea: No Vomiting: No Complications Anesthesia Complication: No 11/05/24 1257 Date Nevaeh Brewer CRNA Cosigner Signature: Date CC: Signed [facility] Operative Reporton Operative Report [facility] Medical Records Department [address] [place] [place] [address] Operative Report 11/05/24917 MR#: [id number] Acct: [id number] Name: GERARDO MOLINA Rep #: [id number] : 1950 74 From: Vesta Flanagan DO PCP: Dr. Emerson Dotson DO Status:[facility] Location: [address] Select Codes Urinary/Genital Urinary/Genital CPT Codes: 41123 Hysteroscopy,EMC, Polypectomy Operative Report (Standard) Operative Information Date of Procedure: 11/05/24 Pre-Operative Diagnosis: thickened postmenopausal endometrial thickening . right nephrolithiasis Post-Operative Diagnosis: Thickened postmenopausal endometrial thickening . right nephrolithiasis Surgery/Procedure Performed: Hysteroscopy Dilation and curettage stair builder: No Type of Anesthesia: General RN Documented Start/Stop Times: Operation Date: 11/05/24 07:30 Case Time Into Pre-Op 11/05/24 05:55 Anesthesia Start 11/05/24 07:47 Into Room 11/05/24 07:47 Out of Pre-Op 11/05/24 07:47 Procedure Start 11/05/24 08:02 Procedure End 11/05/24 08:52 Anesthesia End 11/05/24 09:02 Out of Room 11/05/24 09:02 Into Recovery 11/05/24 09:04 Procedure Start Time: 08:02 Procedure Stop Time: 08:52 Select all DRAINS/GRAFTS/IMPLANTS that apply: None Estimated Blood Loss: 0 Specimen collected: Yes Description of specimen(s) removed: endometrial curettings Description of surgery: Patient was prepped and draped in a normal sterile fashion under MAC anesthesia. A weighted speculum was placed in the vagina and the anterior lip of the cervix was grasped with a single-tooth tenaculum. A paracervical block was placed with 1% lidocaine. Cervix was progressively dilated to allow passage of a 5 mm hysteroscope. The lining was fully visualized and noted to have polyp like structures present . A suspected tiny fundal perforation was noted. no bleeding was noted. A gentle, shallow Curettage was performed to avoid the site of the perforation and the specimen was sent to pathology. All instruments were removed from the vagina and excellent hemostasis was noted. Patient was awoken and taken to recovery in stable condition. Surgical Findings: thickened polypoid appearing cervix, smooth endometrium Complications Complications: No Admit VTE Documentation VTE Present on Admission: No VTE Mechan Device Prophylaxis: SCD's VTE Pharm Prophylaxis ordered?: No 11/05/24921 Cosigner Signature (if applicable): CC: Dr. Kaylyn Egan MD; Dr. Vesta Flanagan DO; Dr. Emerson Dotson DO Signed [facility] Operative Report [facility] Medical Records Department [address] [place] [address] Operative Report 11/05/24 0802 MR#: [id number] Acct: [id number] Name: GERARDO MOLINA Rep #: [id number] : 1950 74 From: Kaylyn Egan MD PCP: Dr. Emerson Dotson DO Status:REG [facility] Location: [place] [address] 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 stair builder: No Type of Anesthesia: General RN Documented Start/Stop Times: Operation Date: 11/05/24 07:30 Case Time Into Pre-Op 11/05/24 05:55 Anesthesia Start 11/05/24 07:47 Into Room 11/05/24 07:47 Out of Pre-Op 11/05/24 07:47 Procedure Start 11/05/24 08:02 Procedure End 11/05/24 08:52 Anesthesia End 11/05/24 09:02 Out of Room 11/05/24 09:02 Into Recovery 11/05/24 09:04 Procedure Start Time: 08:02 Procedure Stop Time: 08:52 Select all DRAINS/GRAFTS/IMPLANTS that apply: None Estimated Blood Loss: <5cc Specimen collected: No Description of surgery: The patient is a 74-year-old female with a right 7 mm stone who presents for definitive surgical intervention. Informed consent was obtained. The patient was taken to the operating room and placed on the operating room table. Anesthesia monitored the head, neck, airway, IV access and vital signs throughout the case. Once anesthesia was appropriate ministered, she was positioned on the lithotripsy table and the stone was clearly identified using fluoroscopy. 3000 shocks were applied to the stone and appeared to be well fragmented at the conclusion of the case. At this time the the case was turned over to Dr. Payton for her portion of the procedure. Please see her dictation for further information. Surgical Findings: 7mm stone Complications Complications: No Admit VTE Documentation VTE Present on Admission: Yes VTE Mechan Device Prophylaxis: SCD's VTE Pharm Prophylaxis ordered?: No Reason prophylaxis not ordered: Treatment Not Indicated 11/05/24 0935 Cosigner Signature (if applicable): CC: Dr. Kaylyn Egan MD; Dr. Vesta Flanagan DO; Dr. Emerson Dotson DO Signed [facility] Type AND Screen - PAT ONLYon 11-05-2024 ABO and Rh group Nom (Bld) Blood group O Rh(D) positive [facility] Comment on above: Order Comment: Surge ry Date: 11/05/24Reason for Laboratory Test [id number] D C Performed By: #### B TSPAT ####[facility] [address] [place], [place], [id number] MR/Francis 10-28-2024 /ZA [facility] [address], [address] [place] [address] OFFICE VISIT Date of Service: 10/28/24 MR#: [id number] Acct: [id number] Name: GERARDO MOLINA Rep #: [id number] : 1950 Provider: Dr. Kaylyn Dumont i, MD Age/Sex: 74/F Location: [facility] Status: Signed Intake Vital Signs 09/18/24 14:02 10/26/24 09:03 10/28/24 08:07 Height 5 ft 7 in 5 ft 7 in 5 ft 7 in Weight: 219 lb 219 lb BMI 34.2 34.2 BP 142/84 H 117/68 Pulse 77 65 Intake Visit Reasons: Pre-op surgery/urine C S/sign consent Chief Complaint: preoperatove visit with uirne culture and consent Squeegee Finisher Required: No Accompanied by: Self Is patient [...] at home: Yes additional social history: HPI [facility] Urology Chief Complaint: preoperatove visit with petrarne [...] healthy appearing, comfortable and no acute distress [facility] Head: normocephalic and atraumatic Ears: hearing grossly [...] inspection Pa (more content not included)... Normal [facility] MR/PAT.Heather 10-28-2024 MR/PAT.[facility] Medical Records Department [address] [place] [address] PAT - Anesthesia 10/28/24 1620 MR#: [id number] Acct: [id number] Name: TRACYGERARDO AMOS Rep #: [id number] : 1950 74 From: Ok Qureshi MD PCP: Dr. Emerson Dotson, DO Status:PRE SDC Y Race: C Location: [facility] Pre-Assessment Diagnosis/Proposed Procedure Planned Operative Procedure(s): HYSTEROSCOPY D C PER DR PAYTON RIGHT ESWL POSS CYSTO WITH RETROGRADES PER DR EGAN Anesthesia History Anesthesia History - space officer: Anesthesia History - space officer Hx Hospitalization No 10/28/24 08:55 Any Problems [...] take am of surgery PONV PONV - space officer: PONV - space officer Female Yes 10/28/24 08:55 HX of Motion [...] 10/26/24 09:03 Respiratory Assessment Respiratory Assessment - space officer: Respiratory Tract Infection Hx - space officer Hx Respiratory Tract Infection No 10/28/24 08:55 STOP Sleep Apnea STOP Sleep Apnea - space officer: STOP Sleep Apnea - space officer Hx Hypertension Yes: CONTROLLED WITH MED 10/28/24 [...] Tobacco Use History Tobacco Use History - space officer: Tobacco Use History - space officer Tobacco Use Smoking Status Never smoker 10/28/24 08:55 Hx Tobacco Use No 10/28/24 08:55 Years Smoking Packs Smoked per Day Smoking Cessation Date was within the last 15 years Hx Smoking Cessation Date Hx Smoking Cessation Counseling Hematologic Medial History Hematologic Hx - space officer: Hematologic Medical Hx - operating room registered nurse Hx of Blood Transfusion No 10/28/24 08:55 [...] confused, unrespo /Reproduction History /Reproductive History - space officer: /Reproductive Hx- space officer Hx Now No 10/28/24 08:55 Gestational Age [...] Verified 10/28/24 08:53 Family History ... Normal [facility] Stress Test Echo W/Contrasto n 10-21-2024 Stress Test Echo W/Contrast [facility] [address] [place] [address] Stress Test Echo W/Contrast MR#: [id number] Acct: [id number] Name: GERARDO MOLINA Rep #: [id number] : 1950 74 From: Bala Burger MD [...] Physician: Emerson Dotson Performed By: Lorenza Del Cid, [facility] 10/21/24 1223 Date Bala Burger MD CC: Dr. Emerson Dotson, Date Dictated: 10/21/24 1007 Date Transcribed: 10/21/24 1223 Janitor Cleaner: Signed [facility] Stress echocardiogram study reportOrdered By: Bala Burger on 10-21-2024 Stress cardiac echo study report [facility] [address] [place] [address] Stress Test Echo W/Contrast MR#: [id number] Acct: [id number] Name: GERARDO MOLINA Rep #: [id number] : 1950 74 From: Bala Burger MD [...] Bala Burger MD CC: Dr. Emerson Dotson, ~ Date Dictated: 10/21/24 1007 Date Transcribed: 10/21/241222 Janitor Cleaner: Signed [facility] Work Phone: Laboratory - Chemistry and C hemistry - challengeOrdered By: Kaylyn Egan on 09-18-2024 Bilirubin Ql (U) Negative [facility] Glucose Ql (U) Negative [facility] Ketones Ql (U) Negative [facility] pH (U) 5 [pH] [facility] Specific gravity (U) [Rel density] 1.020 [facility] Urobilinogen (U) [Mass/Vol] Negative [facility] Laboratory - Hematology and Cell countsOrdered By: Kaylyn Egan on 09-18-2024 Hemoglobin Ql (U) Negative [facility] Laboratory - UrinalysisOrder ed By: Kaylyn Egan on 09-18-2024 Nitrite Ql (U) Negative [facility] Protein Ql (U) Negative [facility] MR/Francis 09-18-2024 MR/ZA [facility] [address], [address] [place] [address] OFFICE VISIT Date of Service: 09/18/24 MR#: [id number] Acct: [id number] Name: GERARDO MOLINA Rep #: [id number] : 1950 Provider: Dr. Kaylyn Dumont i, MD Age/Sex: 74/F [place] [facility] [place]: Signed Intake Vital Signs 06/26/24 09:15 09/14/24 08:30 09/18/24 14:02 Height 5 ft 7 in 5 ft 7 in 5 ft 7 in Weight: 219 lb BMI 34.2 BP 142/84 H Pulse 77 Intake Visit Reasons: PRE OP URINE/SIGN CONSENT Chief Complaint: preoperatove visit with uirne culture and consent Squeegee Finisher Required: No Accompanied by: Self Is patient [...] healthy appearing, comfortable and no acute distress [facility] Head: normocephalic and atraumatic Ears: hearing grossly [...] regular ra (more content not included)... Normal [facility] No Panel InformationOrdered By: Kaylyn Egan on 09-18-2024 Urine Leukocytes Negatve [facility] Urine Non-Hemolyzed Blood Negative [facility] Manager Quality Compliance Office Visit Reporton 09-14-2024 Manager Quality Compliance Office Visit Report [facility] [address], [address] [place] [address] OFFICE VISIT Date of Service: 09/14/24 MR#: [id number] Acct: [id number] Name: GERARDO MOLINA Rep #: [id number] : 1950 Provider: Dr. Vetsa Suazo DO Age/Sex: 74/F Location: [facility] Status: Signed Intake Vital Signs 06/26/24 09:15 09/14/24 08:30 Height 5 ft 7 in 5 ft 7 in Weight: 220 lb 6 oz 219 lb BMI 34.4 34.2 BP 144/75 H 163/78 H Intake Visit Reasons: consult william lr 09/24 Squeegee Finisher Required: No Is patient in pain?: No [...] additional social history: HPI consult thickened endometrium Jignesh lr 09/24 Details: GERARDO MOLINA is a 74 year [...] for hypertenion treatment. 09/14/24 0906 Date Vesta Thompson Signature: Date (if applicable) CC: Normal [facility] 12 Lead EKGon 09-10-2024 12 Lead EKG [facility] Services [address] [place] [address] 12 Lead EKG 09/10/24 1251 MR#: [id number] Acct: [id number] Name: GERARDO MOLINA Rep #: [id number] : 1950 74 From: Sofie Rcih MD Attending Dr: Dr. Kaylyn Egan MD Status: PRE GAC Ordering Dr: Kaylyn Egan MD Date: 09/10/24 Location: [facility] Sex: F C Admitted: Test Reason : [...] Abnormal ECG Confirmed by LAYLA QURESHI, ORTIZ ([id number]), manuscript editor JAIMIE GARCIA ([id number]) on 09/11/2024 1:18:27 PM Referred By: Kaylyn Egan Confirmed By: ORTIZ RICH MD 09/11/24 1318 Date Sofie Rich MD CC: Dr. Kaylyn Egan MD; Dr. Emerson Dotson DO Signed Normal [facility] Basic Metabolic Profile (BMP )on 09-10-2024 BUN/CRE 25.6 RATIO High 10-20 [facility] Comment on above: Performed By: #### L 100.0500, L500.2500 ####[facility] [address] [place], [address] Calcium [Mass/Vol] 9.8 mg/dL Normal 7.6-11.0 [facility] Comment on above: Performed By: #### L 100.0500, L500.2500 ####[facility] [address] [place], [address] Chloride [Moles/Vol] 102 mmol/L Normal 98-108 [facility] Comment on above: Performed By: #### L 100.0500, L500.2500 ####[facility] [address] [place], [address] CO2 [Moles/Vol] 24.2 mmol/L Normal 21.0-32.0 [facility] Comment on above: Performed By: #### L 100.0500, L500.2500 ####[facility] [address] [place], [address] Creatinine [Mass/Vol] 0.63 mg/dL Low 0.70-1.20 [facility] Comment on above: Performed By: #### L 100.0500, L500.2500 ####[facility] [address] [place], [address] GAP 11 Normal 5-15 [facility] Comment on above: Performed By: #### L 100.0500, L500.2500 ####[facility] [address] [place], [address] GFR/1.73 sq M.predicted among non-blacks MDRD (S/P/Bld) [Vol rate/Area] 94 mL/min/{1.73_m2} Normal >60 [facility] Comment on above: Result Comment: mL/m in/1.73m2 CKD-EPI Creatinine Equation (2020) Performed By: #### L 100.0500, L500.2500 ####[facility] [address] [place], [address] Glucose [Mass/Vol] 111 mg/dL High 70-99 [facility] Comment on above: Performed By: #### L 100.0500, L500.2500 ####[facility] [address] [place], [address] Potassium [Moles/Vol] 4.6 mmol/L Normal 3.3-5.1 [facility] [place] Comment on above: Performed By: #### L 100.0500, L500.2500 ####[facility] [address] [place], [address] Sodium [Moles/Vol] 137 mmol/L Normal 133-145 [facility] Comment on above: Performed By: #### L 100.0500, L500.2500 ####[facility] [address] [place], [address] Urea nitrogen [Mass/Vol] 16 mg/dL Normal 4-19 [facility] Comment on above: Performed By: #### L 100.0500, L500.2500 ####[facility] [address] [place], [address] CBC-Complete Blood Cnt No Di ffon 09-10-2024 Erythrocyte distribution width (RBC) [Ratio] 13.6 % Normal 11.6-14.6 [facility] Comment on above: Performed By: #### L 100.0500, L500.2500 ####[facility] [address] [place], [address] Hematocrit (Bld) [Volume fraction] 42.1 % Normal 37-47 [facility] Comment on above: Performed By: #### L 100.0500, L500.2500 ####[facility] [address] [place], [address] Hemoglobin (Bld) [Mass/Vol] 13.9 g/dL Normal 12.0-15.0 [facility] Comment on above: Performed By: #### L 100.0500, L500.2500 ####[facility] [address] [place], [address] MCH (RBC) [Entitic mass] 27.7 pg Normal 27.0-32.0 [facility] Comment on above: Performed By: #### L 100.0500, L500.2500 ####[facility] [address] [place], [address] MCHC (RBC) [Mass/Vol] 33.0 g/dL Normal 32-36 [facility] [place] Comment on above: Performed By: #### L 100.0500, L500.2500 ####[facility] [address] [place], [address] MCV (RBC) [Entitic vol] 83.9 fL Normal 81-99 [facility] Comment on above: Performed By: #### L 100.0500, L500.2500 ####[facility] [address] [place], [address] Platelet mean volume (Bld) [Entitic vol] 10.5 fL Normal 6.2-12.0 [facility] Comment on above: Performed By: #### L 100.0500, L500.2500 ####[facility] [address] [place], [address] Platelets (Bld) [#/Vol] 236 10*3/uL Normal 150-450 [facility] Comment on above: Performed By: #### L 100.0500, L500.2500 ####[facility] [address] [place], [address] RBC (Bld) [#/Vol] 5.02 10*6/uL Normal 4.2-5.4 [facility] Comment on above: Performed By: #### L 100.0500, L500.2500 ####[facility] [address] [place], [address] RDW SD 41.9 fl Normal 35.1-43.9 [facility] Comment on above: Performed By: #### L 100.0500, L500.2500 ####[facility] [address] [place], [address] WBC (Bld) [#/Vol] 8.3 10*3/uL Normal 4.4-11.0 [facility] Comment on above: Performed By: #### L 100.0500, L500.2500 ####[facility] [address] [place], [address] MR/PAT.ANEon 09-10-2024 MR/PAT.ANE [facility] Medical Records Department [address] [place] [address] PAT - Anesthesia 09/10/24 191 MR#: [id number] Acct: [id number] Name: GERARDO MOLINA Rep #: [id number] : 1950 74 From: Ynes Lozaon MD PCP: Dr. 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 - space officer: Anesthesia History - space officer Hx Hospitalization No 09/10/24 09:08 Any Problems [...] take am of surgery PONV PONV - space officer: PONV - space officer Female Yes 09/10/24 09:08 HX of Motion [...] 06/26/24 09:15 Respiratory Assessment Respiratory Assessment - space officer: Respiratory Tract Infection Hx - space officer Hx Respiratory Tract Infection No 09/10/24 09:08 STOP Sleep Apnea STOP Sleep Apnea - space officer: STOP Sleep Apnea - space officer Hx Hypertension No 09/10/24 09:08 Hx Sleep [...] Tobacco Use History Tobacco Use History - space officer: Tobacco Use History - space officer Tobacco Use Smoking Status Never smoker 09/10/24 09:08 Hx Tobacco Use No 09/10/24 09:08 Years Smoking Packs Smoked per Day Smoking Cessation Date was within the last 15 years Hx Smoking Cessation Date Hx Smoking Cessation Counseling Hematologic Medial History Hematologic Hx - space officer: Hematologic 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 Normal [facility] Type AND Screen - PAT ONLYon 09-10-2024 Ab SCREEN GEL Negative Normal [facility] Comment on above: Order Comment: Surge ry Date: 09/24/24Reason for Laboratory Test [id number] D C Performed By: #### B TSPAT ####[facility] [address] [place], [place], [address] PAP IG HPV APTIMA 16/18,45on 07-02-2024 ADEQ Comment Normal . [facility] Comment on above: Order Comment: Speci men Comment: [id number] Comment: Source.............Cervix;EndocervixSpecimen Comment: Other..............Post MenopausalSpecimen Comment: No. of containers..01 ThinPrep Vial Result Comment: Sati sfactory for evaluation. Endocervical and/or squamous metaplastic cells (endocervical component) are present. Performed By: #### L 7400.0280 ####[facility] [address] [place], [place], [address] COMM . Normal . [facility] Comment on above: Order Comment: Speci men Comment: [id number] Comment: Source.............Cervix;EndocervixSpecimen Comment: Other..............Post MenopausalSpecimen Comment: No. of containers..01 ThinPrep Vial Performed By: #### L 7400.0280 ####[facility] [address] [place], [place], [address] COMMENT Comment Normal . [facility] Comment on above: Order Comment: Speci men Comment: [id number] Comment: Source.............Cervix;EndocervixSpecimen Comment: Other..............Post MenopausalSpecimen Comment: No. of containers..01 ThinPrep Vial Result Comment: This liquid based ThinPrep(R) pap test was screened with the use of an image guided system. Performed By: #### L 7400.0280 ####[facility] [address] [place], [address] DIAG Comment Normal . [facility] Comment on above: Order Comment: Speci men Comment: [id number] Comment: Source.............Cervix;EndocervixSpecimen Comment: Other..............Post MenopausalSpecimen Comment: No. of containers..01 ThinPrep Vial Result Comment: NEGA TIVE FOR INTRAEPITHELIAL LESION OR MALIGNANCY. Performed By: #### L 7400.0280 ####[facility] [address] [place], [place], [address] HPV APTIMA, HR Negative Normal Negative [facility] Comment on above: Order Comment: Speci men Comment: [id number] Comment: Source.............Cervix;EndocervixSpecimen Comment: Other..............Post MenopausalSpecimen Comment: No. of containers..01 ThinPrep Vial Result Comment: This nucleic acid amplification test detects fourteen high- risk HPV types (16,18,31,33,35,39,45,51,52,56,58,59,66,68) without differentiation. Performed By: #### L 7400.0280 ####[facility] [address] [place], [place], [address] HPV Laura Rfx Comment Normal . [facility] Comment on above: Order Comment: Speci men Comment: [id number] Comment: Source.............Cervix;EndocervixSpecimen Comment: Other..............Post MenopausalSpecimen Comment: No. of containers..01 ThinPrep Vial Result Comment: Crit eria not met, HPV Genotype not performed. Performed at: [facility] [address] [facility], [place] [id number] Territory Sales Executive: Tania Brizuela PhD, Phone: [phone] Performed at: [address] [id number] Territory Sales Executive: Roselyn Ovalle MD, Phone: [phone] Performed at: [address] [id number] Territory Sales Executive: Roselyn Ovalle MD, Phone: [phone] Performed By: #### L 7400.0280 ####[facility] [address] [place], [address] PAPSMR Comment Normal . [facility] Comment on above: Order Comment: Speci men Comment: [id number] Comment: Source.............Cervix;EndocervixSpecimen Comment: Other..............Post MenopausalSpecimen Comment: No. of containers..01 ThinPrep Vial Result Comment: The Pap smear is a screening test designed to aid in the detection of premalignant and malignant conditions of the uterine cervix. It is not a diagnostic procedure and should not be used as the sole means of detecting cervical cancer. Both false-positive and false-negative reports do occur. Performed By: #### L 7400.0280 ####[facility] [address] [place], [address] PERFORM Comment Normal . [facility] Comment on above: Order Comment: Speci men Comment: [id number] Comment: Source.............Cervix;EndocervixSpecimen Comment: Other..............Post MenopausalSpecimen Comment: No. of containers..01 ThinPrep Vial Result Comment: Fidelina Grace, Crude Oil Driver (ASCP) Performed By: #### L 7400.0280 ####[facility] [address] [place], [place], [address] Pelvic (Non )on 06-18 Pelvic (Non ) [facility] Imaging Services [address] [place], [place] [address] Pelvic (Non ) MR#: [id number] Acct: [id number] Name: GERARDO MOLINA Rep #: [id number] : 1950 F 74 From: Zaid sorensen MD PCP: Dr. Emerson Dotson DO Status: REG CLI Study: Pelvic (Non ) Date of Exam: 06/29/24 Exam# [id number] Ordering Dr: Kaylyn Egan MD PROCEDURE: PELVIC [...] 7 mm. Clinical correlation recommended. Reading Location: [id number] CC: Dr. Kaylyn Egan MD; Dr. Emerson Dotson DO Janitor Cleaner: Signed Normal [facility] Cervical or vaginal specimen microscopic examination by liquid based cytology (reportOrdered By: Debbie Farfan on 06-26-2024 Cytology report Cyto stain.thin prep Doc (Cvx/Vag) Comment . [facility] Comment on above: Criteria not met, HP V Genotype not performed.Performed at: [facility] [place], [place] [id number] Director: Tania Brizuela PhD, Phone: [phone] at: [address] [id number] Director: Roselyn Ovalle MD, Phone: [phone] at: =[facility] [id number] Director: Roselyn Ovalle MD, Phone: [phone] Cervical or vagninal specime n microscopic examination by cytology stain (reported asOrdered By: Debbie Farfan on 06-26-2024 Cytology report Cyto stain Doc (Cvx/Vag) Comment . [facility] Comment on above: The Pap smear is [...] DNA Probe+sig amp Ql (Cvx) Negative Negative [facility] Comment on above: This nucleic acid am plification test detects fourteen high- risk HPV types (16,18,31,33,35,39,45,51,52,56,58,59,66,68)without differentiation. Laboratory - CytologyOrdered By: Debbie Farfan on 06-26-2024 Crude Oil Driver Cyto stain Nom (Cvx/Vag) [ID] Comment . [facility] Comment on above: Anita Grace, Cyto logist (ASCP) Laboratory - Miscellaneous t estsOrdered By: Debbie Farfan on 06-26-2024 Service comment (Unsp spec) [Interp] . . [facility] No Panel InformationOrdered By: Debbie Farfan on 06-26-2024 Pap Smear Specimen Adequacy Comment . [facility] Comment on above: Satisfactory for nabeel luation. Endocervical and/or squamous metaplasticcells (endocervical component) are present. Manager Quality Compliance Office Visit Reporton 06-26-2024 Manager Quality Compliance Office Visit Report [facility] [address] [place] [address], [address] [place] [address] OFFICE VISIT Date of Service: 06/26/24 MR#: [id number] Acct: [id number] Name: GERARDO MOLINA Rep #: [id number] : 1950 Provider: Dr. Debbie tran MD Age/Sex: 74/F Location: [facility] Status: Signed Intake Vital Signs 11/30/23 13:26 06/26/24 09:15 Height 5 ft 7 in 5 ft 7 in Weight: 220 lb 6 oz BMI 34.4 BP 144/75 H Intake Visit Reasons: JOHNATHON (JIGNESH) Squeegee Finisher Required: No Is patient in pain?: No [...] acute distress and well developed Orientation: alert [facility] Head: normal to inspection and normocephalic Ears: [...] bilateral strength (more content not included)... Normal [facility] Abdomen Single Viewon 2024 Abdomen Single View [facility] Imaging Services [address] [place], [place] [address] Abdomen Single View MR#: [id number] Acct: [id number] Name: GERARDO MOLINA TRINIDAD Rep #: [id number] : 1950 F 74 From: Micky Matta MD PCP: Dr. Emerson Dotson DO Status: REG CLI Study: Abdomen Single View Date of Exam: 06/24/24 Exam# [id number] Ordering Dr: Kaylyn Egan MD PROCEDURE: ABDOMEN [...] shadow may represent renal stone. Reading Location: [facility] CC: Dr. Kaylyn Egan MD; Dr. Emerson Dotson DO Janitor Cleaner: Signed Normal [facility] CT Abd/Pelvis W/WO Contrasto n 06-18-2024 CT Abd/Pelvis W/WO Contrast [facility] Imaging Services [address] [place], [place] [address] CT Abd/Pelvis W/WO Contrast MR#: [id number] Acct: [id number] Name: GERARDO MOLINA Rep #: [id number] : 1950 F 74 From: Charlene Patterson nd, MD PCP: Dr. Emerson Dotson, DO Status: REG CLI Study: CT Abd/Pelvis W/WO Contrast Date of Exam: 03/14 Exam# [id number] Ordering Dr: Kaylyn Egan MD PROCEDURE: CT [...] obtained to evaluate for stability. Reading Location: [facility] CC: Dr. Kaylyn Egan MD; Dr. Emerson Dotson DO Janitor Cleaner: Signed Normal [facility] Kidney and Bladderon 025 Kidney and Bladder [facility] Imaging Services [address] [place] [address] Kidney and Bladder MR#: [id number] Acct: [id number] Name: GERARDO MOLINA Rep #: [id number] : 1950 F 74 From: Manny diggs MD PCP: Dr. Emerson Dotson DO Status: REG CLI Study: Kidney and Bladder Date of Exam: 06/01/24 Exam# [id number] Ordering Dr: Kaylyn Egan MD PROCEDURE: KIDNEY AND BLADDER 06/01/2024 REASON FOR EXAM: UTI TECHNIQUE: Bilateral renal ultrasound. COMPARISON: None FINDINGS: Kidneys: Normal in size, position and shape. [place]: Mild left-sided hydronephrosis. Cysts or Masses: None [...] Bladder IMPRESSION: Mild left-sided hydronephrosis. Reading Location: [place] [address] CC: Dr. Kaylyn Egan MD; Dr. Emerson Dotson DO Janitor Cleaner: Signed Normal [facility] Urine Cultureon 04-15-2024 URC Mixed Gram Positive Organisms [place] Count 80,000-100,000 MIXC Mixed contaminants. Submit a new specimen if indicated. Normal [facility] Comment on above: Performed By: #### M 100.2200 ####[facility] [address] [place], [place], [address] Laboratory - Chemistry and C hemistry - challengeOrdered By: Harshal Heath on 04-13-2024 Bilirubin Ql (U) Negative [facility] Glucose Ql (U) Negative [facility] Ketones Ql (U) Small (15+) [facility] pH (U) 5.0 [pH] [facility] Urobilinogen (U) [Mass/Vol] 1 mg/dL [facility] Laboratory - Hematology and Cell countsOrdered By: Harshal Heath on 04-13-2024 Hemoglobin Ql (U) Moderate [facility] Laboratory - Specimen inform ationOrdered By: Harshal Heath on 04-13-2024 Clarity (U) Cloudy [facility] Color (U) YELLOW [facility] Laboratory - UrinalysisOrder ed By: Harshal Heath on 04-13-2024 Nitrite Ql (U) Negative [facility] Protein Ql (U) Trace [facility] No Panel InformationOrdered By: Harshal Heath on 04-13-2024 Urine Leukocytes Positive [facility] Comment on above: small Urine Non-Hemolyzed Blood Non-Hemolyzed [facility] Urgent Care Visit Reporton 0 04-13-2024 Urgent Care Visit Report [facility] [address] [facility], [address] [place], [place] [address] OFFICE VISIT Date of Service: 04/13/24 MR#: [id number] Acct: [id number] Name: GERARDO MOLINA Rep #: [id number] : 1950 Provider: VALERIE Powell Age/Sex: 74/F Location: [facility] Status: Signed Intake Vital Signs 11/30/23 13:26 [...] or stool; no urethral/ vaginal discharge. No ugfj-eab-dpkpwtj products taken to assist. No other associated [...] MA on 04/13/24 16:58 Off Ur Spec Douglas Last Edit by Christel Brower MA on [...] by Christel Brower MA on 04/13/24 16:58 tara Brower 04/13/24 16:58 Coding Level of Care Code Off vis,est,level 3 Diagnoses Urinary tract infection without hematuria, site unspecified N39.0 Hematuria presence: without hematuria Urinary tract infection type: site unspecified Assessment and Plan Assessment and Plan (1) (more content not included)... Normal [facility] Urine cultureOrdered By: Asa Heath on 04-13-2024 Bacteria identified Cx Nom (U) Positive Abnormal [facility] Bacteria identified Cx Nom (U) Positive Abnormal [facility] Urine Cultureon 12-03-2023 URC Below infection leve l. Mixed Gram Pos Gram Neg Org [place] Count 1000-10,000 MIXC Mixed contaminants. Submit a new specimen if indicated. Normal [facility] Comment on above: Performed By: #### M 100.2200 ####[facility] [address] [place], [address] Urgent Care Visit Reporton 1 Urgent Care Visit Report [facility] [address] [facility], [address] [place] [address] OFFICE VISIT Date of Service: 11/30/23 MR#: [id number] Acct: [id number] Name: GERARDO MOLINA Rep #: [id number] : 1950 Provider: VALERIE Downing Age/Sex: 73/F Location: [facility] Status: Signed Intake Vital Signs 07/14/22 08:34 [...] MA on 11/30/23 13:29 Off Ur Spec Douglas >1.030 Last Edit by Christel Brower MA [...] Tanner Khan (more content not included)... Normal [facility] Culture, urineOrdered By: [facility] Heath on 06-19-2023 Bacteria identified Cx Nom (U) Mixed Gram Pos & Gram Neg Org [facility] Laboratory - Chemistry and C hemistry - challengeon 06-18-2023 Bilirubin Ql (U) Negative [facility] Glucose Ql (U) Negative [facility] Ketones Ql (U) Negative [facility] pH (U) 5.0 [pH] [facility] Specific gravity (U) [Rel density] 1.030 [facility] Urobilinogen (U) [Mass/Vol] Negative [facility] Laboratory - Hematology and Cell countson 06-18-2023 Hemoglobin Ql (U) Hemolyzed [facility] Laboratory - Specimen inform ationon 06-18-2023 Clarity (U) Cloudy [facility] Color (U) YELLOW [facility] Laboratory - Urinalysison Nitrite Ql (U) Negative [facility] Protein Ql (U) Negative [facility] No Panel Informationon 06-17 Urine Leukocytes Positive [facility] Urine Non-Hemolyzed Blood Large [facility] Culture, urineOrdered By: Hill Fletcher on 02-15-2023 Bacteria identified Cx Nom (U) Escherichia coli [facility] Laboratory - Chemistry and C hemistry - challengeon 02-13-2023 Bilirubin Ql (U) Negative [facility] Glucose Ql (U) Negative [facility] Ketones Ql (U) Negative [facility] Specific gravity (U) [Rel density] 1.005 [facility] Urobilinogen (U) [Mass/Vol] Negative [facility] Laboratory - Hematology and Cell countson 02-13-2023 Hemoglobin Ql (U) Small [facility] Laboratory - Specimen inform ationon 02-13-2023 Clarity (U) Clear [facility] Color (U) Yellow [facility] Laboratory - Urinalysison Nitrite Ql (U) Negative [facility] Protein Ql (U) Negative [facility] No Panel Informationon 02-13 Urine Leukocytes Positive [facility] Urine Non-Hemolyzed Blood [facility] Urine pH 6.0. [facility] Vital Signs Date Time Vital Sign Value Performing Clinician Shaheed rodriguez 10-28-2024 08:07-0400 Body height 170.[address] Emerson Dotson DO Work Phone: [facility] 10-28-2024 08:07-0400 Body mass index (BMI) [Ratio] 34.2 kg/m2 Dr. Emerson Dotson DO Work Phone: [facility] 10-28-2024 08:07-0400 Body weight 99.[address] Emreson Dotson DO Work Phone: [facility] 10-28-2024 08:07-0400 Diastolic blood pressure 68 mm[Hg] Dr. Emerson Dotson DO Work Phone: [facility] 10-28-2024 08:07-0400 Heart rate 65 /min Dr. Emerson Dotson DO Work Phone: [facility] 10-28-2024 08:07-0400 Systolic blood pressure 117 mm[Hg] Dr. Emerson Dotson DO Work Phone: [facility] 09-18-2024 14:02-0400 Body height 170.[address] Emerson Dotson DO Work Phone: [facility] 09-18-2024 14:02-0400 Body mass index (BMI) [Ratio] 34.2 kg/m2 Dr. Emerson Dotson DO Work Phone: [facility] 09-18-2024 14:02-0400 Body weight 99.[address] Emerson Dotson DO Work Phone: [facility] 09-18-2024 14:02-0400 Diastolic blood pressure 84 mm[Hg] Dr. Emerson Dotson DO Work Phone: [facility] 09-18-2024 14:02-0400 Heart rate 77 /min Dr. Emerson Dotson DO Work Phone: [facility] 09-18-2024 14:02-0400 Systolic blood pressure 142 mm[Hg] Dr. Emerson Dotson DO Work Phone: [facility] 09-14-2024 08:30-0400 Body height 170.[address] Emerson Dotson DO Work Phone: [facility] 09-14-2024 08:30-0400 Body mass index (BMI) [Ratio] 34.2 kg/m2 Dr. Emerson Dotson DO Work Phone: [facility] 09-14-2024 08:30-0400 Body weight 99.[address] Emerson Dotson DO Work Phone: [facility] 09-14-2024 08:30-0400 Diastolic blood pressure 78 mm[Hg] Dr. Emerson Dotson DO Work Phone: [facility] 09-14-2024 08:30-0400 Systolic blood pressure 163 mm[Hg] Dr. Emerson Dotson DO Work Phone: [facility] 06-26-2024 09:15-0400 Body height 170.[address] Emerson Dotson DO Work Phone: [facility] 06-26-2024 09:15-0400 Body mass index (BMI) [Ratio] 34.4 kg/m2 Dr. Emerson Dotson DO Work Phone: [facility] 06-26-2024 09:15-0400 Body weight 99.[address] Emerson Dotson DO Work Phone: [facility] 06-26-2024 09:15-0400 Diastolic blood pressure 75 mm[Hg] Dr. Emerson Dotson DO Work Phone: [facility] 06-26-2024 09:15-0400 Systolic blood pressure 144 mm[Hg] Dr. Emerson Dotson DO Work Phone: [facility] 04-13-2024 16:33-0500 Body temperature 98.1 [degF] Dr. Emerson Dotson DO Work Phone: [facility] 04-13-2024 16:33-0500 Diastolic blood pressure 82 mm[Hg] Dr. Emerson Dotson DO Work Phone: [facility] 04-13-2024 16:33-0500 Heart rate 76 /min DrBharati Dotson DO Work Phone: [facility] 04-13-2024 16:33-0500 SaO2% (BldA) [Mass fraction] 99 % Dr. Emerson Dotson DO Work Phone: [facility] 04-13-2024 16:33-0500 Systolic blood pressure 122 mm[Hg] Dr. Emerson Dotson DO Work Phone: [facility] 06-18-2023 17:03-0400 Body temperature 97.6 [degF] Dr. Emerson Dotson Work Phone: [facility] 06-18-2023 17:03-0400 Diastolic blood pressure 86 mm[Hg] Dr. Emerson Dotson Work Phone: [facility] 06-18-2023 17:03-0400 Heart rate 96 /min Dr. Emerson Dotson Work Phone: [facility] 06-18-2023 17:03-0400 Respiratory rate 12 /min Dr. Emerson Dotson Work Phone: [facility] 06-18-2023 17:03-0400 SaO2% (BldA) [Mass fraction] 98 % Dr. Emerson Dotson Work Phone: [facility] 06-18-2023 17:03-0400 Systolic blood pressure 132 mm[Hg] Dr. Emerson Dotson Work Phone: [facility] 02-13-2023 16:59-0500 Body temperature 96 [degF] Dr. Emerson Dotson Work Phone: [facility] 02-13-2023 16:59-0500 Diastolic blood pressure 84 mm[Hg] Dr. Emerson Dotson Work Phone: [facility] 02-13-2023 16:59-0500 Heart rate 83 /min Dr. Emerson Dotson Work Phone: [facility] 02-13-2023 16:59-0500 Respiratory rate 15 /min Dr. Emerson Dotson Work Phone: [facility] 02-13-2023 16:59-0500 SaO2% (BldA) [Mass fraction] 98 % Dr. Emerson Dotson Work Phone: [facility] 02-13-2023 16:59-0500 Systolic blood pressure 134 mm[Hg] Dr. Emerson Dotson Work Phone: [facility] Encounters Encounter Date Encounter Type Care Provider Facility Start: 11-05-2024 Encounter for other preprocedural examination Kaylyn Egan [facility] Start: 11-05-2024 ambulatory Vesta Flanagan Fa cility:[facility] Start: 11-05-2024 End: 11-05-[address] [facility] Facility:[facility] Start: 10-28-2024 End: 10-28-[address] Kaylyn Egan MD -[facility] Work Phone: Start: 10-28-2024 End: 10-28-[address] Emerson Dotson DO Work Phone: -[facility] Start: 10-21-2024 Non-patient / Non-visit Dr. Bala ellis MD -[facility] Start: 10-21-2024 End: 10-21-[address] Emerson Dotson DO Work Phone: -[facility] Start: 10-21-2024 End: 10-21-[address] Emerson Dotson DO -[facility] Work Phone: Start: 10-21-2024 End: 10-21-2024 ambulatory Emerson Dotson Facility:[facility] Start: 09-18-2024 End: 09-18-[address] Kaylyn Egan MD -[facility] Work Phone: Start: 09-18-2024 End: 09-18-[address] Emerson Dotson DO Work Phone: -[facility] Start: 09-14-2024 End: 09-14-[address] Vesta Flanagan DO -[facility] Work Phone: Start: 09-14-2024 End: 09-14-[address] Emerson Dotson DO Work Phone: -[facility] Start: 09-10-2024 ambulatory Kaylyn Egan Facility: [facility] Start: 09-10-2024 Non-patient / Non-visit Dr. Mari Rich MD -[facility] Work Phone: Start: 08-18-2024 Non-patient / Non-visit Dr. Kaylyn villeda MD -[facility] Work Phone: Start: 06-29-2024 End: 06-29-[address] Emerson Dotson DO Work Phone: [facility] Work Phone: Start: 06-29-2024 End: 06-29-[address] Kaylyn Egan MD -Ultrasound, [facility] Work Phone: Start: 06-29-2024 End: 06-29-2024 ambulatory Debbie Farfan Facility:[facility] Start: 06-26-2024 End: 06-26-[address] Debbie Farfan MD -Laboratory, [facility] Work Phone: Start: 06-26-2024 End: 06-26-[address] Emerson Dotson DO Work Phone: [facility] Work Phone: Start: 06-26-2024 End: 06-26-2024 ambulatory Debbie Farfan Facility:[facility] Start: 06-24-2024 End: 06-24-[address] Emerson Dotson DO Work Phone: [facility] Work Phone: Start: 06-24-2024 End: 06-24-[address] Kaylyn Egan MD -Radiology, [place] Work Phone: Start: 06-24-2024 End: 06-24-2024 ambulatory [facility] Facility:[facility] Start: 06-18-2024 End: 06-18-[address] Kaylyn Egan MD -Cat Scan, [facility] Work Phone: Start: 06-18-2024 End: 06-18-2024 ambulatory Emerson Mauri Facility:[facility] Start: 06-01-2024 End: 06-01-[address] Emerson Dotson DO Work Phone: [facility] Work Phone: Start: 06-01-2024 End: 06-01-[address] Kaylyn Egan MD -Ultrasound, [facility] Work Phone: Start: 06-01-2024 End: 06-01-2024 ambulatory Emerson [facility] Facility:[facility] Start: 04-13-2024 End: 04-13-2024 Patient encounter procedure Harshal Heath [place] -[facility] Work Phone: Start: 04-13-2024 End: 04-13-[address] Emerson Dotson DO Work Phone: [facility] Work Phone: Start: 04-13-2024 End: 04-13-2024 ambulatory Emerson Dotson Facility:[facility] Start: 11-30-2023 End: 11-30-2023 ambulatory Emerson Mauri Facility:[facility] Start: 11-30-2023 End: 11-30-2023 ambulatory Tanner Leroy Facility:[facility] Start: 06-19-2023 End: 06-19-[address] Emerson Dotson Work Phone: [facility] Work Phone: Start: 06-19-2023 End: 06-19-[address] Emerson Dotson Work Phone: [facility]-Laboratory, [facility] Work Phone: Start: 06-18-2023 End: 06-18-[address] Emerson Dotson Work Phone: [facility] Work Phone: Start: 02-15-2023 End: 02-15-[address] Emerson Dotson Work Phone: [facility] Work Phone: Start: 02-15-2023 End: 02-15-[address] [facility] Work [facility] Start: 02-13-2023 End: 02-13-[address] Emerson Dotson Work Phone: [facility] Work Phone: Procedures Date Procedure Procedure Detail [...] Start: 06-29-2024 Pelvic echography Pelvic (Non ) [facility] Start: 06-29-2024 US Pelvis [facility] Start: 06-26-2024 Liquid based cervica l cytology screening [facility] Cytology report of Cervical or vaginal smear or scraping Cyto stain.thin prep [facility] Liquid based cervica l cytology screening [facility] Path report.final Dx Spec [facility] Payers Date Payer Category Payer Medicare [id number] 2023 Private Health Insurance CLI [id number] 2023 Self-pay [id number] Unknown [id number] Unknown [id number] Unknown [id number] Unknown [id number] 2.16.8 40.1.335821.3.579.2.462 Unknown [id number] 2.16.8 40.1.836014.3.579.2.462 Unknown [id number] 2.16.8 40.1.264094.3.579.2.462 Unknown [id number] 2.16.8 40.1.734507.3.579.2.462 Unknown [id number] 2.16.8 40.1.293146.3.579.2.462 Unknown [id number] 2.16.8 40.1.234870.3.579.2.462 Unknown [id number] 2.16.8 40.1.788361.3.579.2.462 Unknown [id number] 2.16.8 40.1.062153.3.579.2.462 Unknown [id number] 2.16.8 40.1.530052.3.579.2.462 Unknown [id number] 2.16.8 40.1.833255.3.579.2.462 Unknown [id number] 2.16.8 40.1.876099.3.579.2.462 Unknown [id number] 2.16.8 40.1.596191.3.579.2.462 Unknown [id number] 2.16.8 40.1.346893.3.579.2.462 Unknown [id number] 2.16.8 40.1.468690.3.579.2.462 Unknown [id number] 2.16.8 40.1.439627.3.579.2.462 Unknown [id number] 2.16.8 40.1.515507.3.579.2.462 Unknown [id number] 2.16.8 40.1.662072.3.579.2.462 Unknown [id number] 2.16.8 40.1.006113.3.579.2.462 Unknown [id number] 2.16.8 40.1.348927.3.579.2.462 Social History Date Type Detail Facility Start: 02-13-2023 End: 02-13-2023 Tobacco smoking status SDIS Unknown if ever smoked [facility] Start: 1950 Sex Assigned At Female [facility] Start: 02-13-2023 End: 10-28-2024 Tobacco smoking status NHIS Never smoked tobacco (finding) [facility] Start: 04-24-2024 End: 06-04-2024 Sex Female (finding) [facility] Clinical Notes 04-13-2024 to 11-05-2024 Note Date & Type Note Facility 11-05-2024 Note [facility] Medical Records Department [address] [place] [address] [place] [address] History Physical Exam 11/05/24 0743 MR#: [id number] Acct: [id number] Name: GERARDO MOLINA Rep #: [id number] : 1950 74 From: Vesta Flanagan DO PCP: Dr. Emerson Dotson, DO Status:REG [facility] Location: [place] [address] History and Physical Date of Admission: 11/05/24 Intake Vital Signs 06/26/2508:15 09/15/2507:30 Height 5 ft 7 in 5 ft 7 in Weight: 220 lb 6 oz 219 lb BMI 34.4 34.2 BP 144/75 H 163/78 H Intake Visit Reasons: consult thickened endometrium SoLatinao 09/24 Squeegee Finisher Required: No Is patient in pain?: No Allergies No Known Allergies Allergy (Verified 09/14/24 08:42) Medications ???Medication ???Instructions ???Recorded ???Confirmed ???Type estradiol 0.01% (0.1 mg/gram) 1 g vaginal 3XW 06/26/24 09/14/24 History vaginal cream solifenacin 5 mg tablet 5 mg PO QDAY 06/26/24 09/14/24 History Lactobacillus acidophilus 250 500 mmu cells PO DAILY 09/10/24 09/14/24 History million cell capsule (Probiotic Acidophilus) ascorbic [...] additional social history: HPI consult thickened endometrium Konbini combo 09/24 Details: GERARDO MOLINA is a 74 year old who presents for preoperative evaluation. She is scheduled for a hysteroscopy D C following an ESWL treatment with Dr. Egan. The D C is scheduled due to an in cidental finding of thickened endometrial tissue measuring 0.8cm. [...] to see her pcp for hypertenion treatment. 11/05/24 8967 Cosigner Signature (if applicable): CC: Dr. Vesta Flanagan DO; Dr. Emerson Dotson DO Signed [facility] 11-05-2024 Note [facility] Medical Records Department [address] [place] [address] History Physical Exam 11/05/24724 MR#: [id number] Acct: [id number] Name: GERARDO MOLINA Rep #: [id number] : 1950 74 From: Kaylyn Egan MD PCP: Dr. Emerson Dotson, DO Status:REG [facility] Location: [place] [address] History and Physical Date of Admission: 11/05/24 Date of Service: 10/28/24 MR#: [id number] Acct: [id number] Name: GERARDO MOLINA Rep #: [id number] : 1950 Provider: Dr. Kaylyn Egan MD Age/Sex: 74/F [place] [facility] [place]: Signed Intake Vital Signs 09/18/2513:02 10/26/2508:03 10/29/2507:07 Height 5 ft 7 in 5 ft 7 in 5 ft 7 in Weight: 219 lb 219 lb BMI 34.2 34.2 BP 142/84 H 117/68 Pulse 77 65 Intake Visit Reasons: Pre-op surgery/urine C S/sign consent Chief Complaint: preoperatove visit with uirne culture and consent Squeegee Finisher Required: No Accompanied by: Self Is patient in pain?: No Allergies No Known Allergies Allergy (Verified 10/28/24 08:53) Medications ???Medication ???Instructions ???Recorded ???Confirmed ???Type estradiol 0.01% (0.1 mg/gram) 1 g vaginal 3XW 06/26/24 10/28/24 History vaginal cream solifenacin 5 mg tablet 5 mg PO QDAY 06/26/24 10/28/24 History Lactobacillus acidophilus 250 500 mmu cells PO DAILY 09/10/24 10/28/24 History million cell capsule (Probiotic Acidophilus) ascorbic acid (vitamin C) 500 mg 500 mg PO DAILY 09/10/24 10/28/24 History chewable tablet (C-500) amlodipine 10 mg tablet 10 mg PO QDAY 10/28/24 10/28/24 History Have you fallen in the past year?: [...] healthy appearing, comfortable and no acute distress [facility] Head: normocephalic and atraumatic Ears: hearing grossly normal bilaterally an (more content not included)... [facility] 09-14-2024 Evaluation note Diagnosis Onset Date Resolution [...] 2024 1:50pm Vaginal atrophy acute September 1:50pm [facility] Work Phone: 1(391) 956-989407-28-2025 Evaluation note* Diagnosis Onset Date Resolution Status Admit Date Bilateral kidney stones acute J 2024 8:25am [...] Mixed incontinence acute 2024 7:54am Nocturia acute Irlanda 10th , 2025 7:54am Overactive bladder acute Septem 2024 7:54am UTI (urinary tract infection) acute October 28, 2024 7:54am Vaginal atrophy acute October 28, 2024 7:54am [facility] Work Phone: 1(214) 652-757405-14-2025 Radiology Diagnostic study note [facility] Imaging Services [address] [place], [place] [id number] Pelvic (Non ) MR#: [id number] Acct: [id number] Name: GERARDO MOLINA Rep #: [id number] : 1950 F 74 From: Toney Iqbal MD PCP: Dr. Emerson Dotson DO Status: REG CLI Study:Pelvic (Non ) Date of Exam: 06/29/24 Exam# [id number] Ordering Dr: Kaylyn Egan MD PROCEDURE: PELVIC [...] 7 mm. Clinical correlation recommended. Reading Location: [id number] CC: Dr. Kaylyn Egan MD; Dr. Emerson Dotson DO ~ Janitor Cleaner: Signed [facility]05-09-2025 Evaluation note* Diagnosis Onset Date Resolution Status Admit Date Thickened endometrium acute June 26, 2024 10:39am [facility] Work Phone: 1(140) 889-467605-09-2025 Evaluation note* Diagnosis Onset Date Resolution Status Admit Date Thickened endometrium acute June 26, 2024 10:39am Bilateral kidney stones acute J britney 2024 8:25am Thickened endometrium acute Aug 8:25am Hypertension chronic September 14, 025 8:25am Kidney stones acute September 18, 2024 1:50pm [facility] Work Phone: 1([phone]) 391-844905-08-2025 Radiology Diagnostic study note [facility] Imaging Services [address] [place] [address] Abdomen Single View MR#: [id number] Acct: [id number] Name: GERARDO MOLINA Rep #: [id number] : 1950 F 74 From: Selvin Matta MD PCP: Dr. Emerson Dotson DO Status: REG CLI Study:Abdomen Single View Date of Exam: 06/24/24 Exam# [id number] Ordering Dr: Kaylyn Egan MD PROCEDURE: ABDOMEN [...] shadow may represent renal stone. Reading Location: [facility] CC: Dr. Kaylyn Egan MD; Dr. Emerson Dotson DO ~ Janitor Cleaner: Signed [facility]04-15-2025 Radiology Diagnostic study note [facility] Imaging Services [address] [place] [id number] Kidney and Bladder MR#: [id number] Acct: [id number] Name: GERARDO MOLINA Rep #: [id number] : 1950 F 74 From: Carly Wilson MD PCP: Dr. Emerson Dotson DO Status: REG CLI Study:Kidney and Bladder Date of Exam: 0 06/01/24 Exam# [id number] Ordering Dr: Kaylyn Egan MD PROCEDURE: KIDNEY AND BLADDER 06/01/2024 REASON FOR EXAM: UTI TECHNIQUE: Bilateral renal ultrasound. COMPARISON: None FINDINGS: Kidneys: Normal in size, position and shape. [place]: Mild left-sided hydronephrosis. Cysts or Masses: None [...] Bladder IMPRESSION: Mild left-sided hydronephrosis. Reading Location: [place] [address] CC: Dr. Kaylyn Egan MD; Dr. Emerson Dotson, DO ~ Janitor Cleaner: Signed [facility]02-24-2025 Evaluation note* Diagnosis Onset Date Resolution Status Admit Date UTI (urinary tract infection) acute April 13, 2024 4:28pm [facility] Work Phone: 1(698) 182-110602-24-2025 Evaluation note* Diagnosis Onset Date Resolution Status Admit Date UTI (urinary tract infection) acute April 13, 2024 4:28pm Thickened endometrium acute June 26, 2024 10:39am [facility] Work Phone: Evaluation note* Diagnosis Onset Date Resolution Status UTI (urinary tract infection) acute [facility] Work Phone: Evaluation noteNo assessment information available [facility] Work Phone: Reason for referral (narrative)No [facility] for [facility] Work Phone: Chief Complaint and [...] Admit Date Urinary tract infection April 13, 2 025 4:28pm Chief Complaint Admit Date Urinary tract infection April 13, 2 025 4:28pm UTI June 01, 2024 3:4 4pm HYDRONEPHROSIS June 18, 2024 2:36pm KUB- KIDNEY STONE June 24, 2024 2:52pm EMB (JIGNESH) June 26, 2024 10:39a m ENDOMETRIAL THICKENING June 29, 2024 4: 22pm Reason for Visit Admit Date UTI (urinary tract infection) March 222024 4:28pm Thickened endometrium June 26, 2024 10:3 9am Chief Complaint Admit Date UTI June 01, 2024 3:4 4pm HYDRONEPHROSIS June 18, 2024 2:36pm KUB- KIDNEY STONE June 24, 2024 2:52pm EMB (JIGNESH) June 26, 2024 10:39a m ENDOMETRIAL THICKENING June 29, 2024 4: 22pm consult thickened endometrium Jignesh co mbo 09/24September 14, 2024 8:25am Reason for Visit Admit Date Thickened endometrium June 26, 2024 10:3 9am Chief Complaint Admit Date UTI June 01, 2024 3:4 4pm HYDRONEPHROSIS June 18, 2024 2:36pm KUB- KIDNEY STONE June 24, 2024 2:52pm EMB (JIGNESH) June 26, 2024 10:39a m ENDOMETRIAL THICKENING June 29, 2024 4: 22pm PREOP September 10, 2024 12:5 1pm consult thickened endometrium Jignesh co mbo 09/24September 14, 2024 8:25am PRE [...] 2024 1:5 0pm Endometrial thickening on ultrasound Sep 2024 7:54am Kidney stones October 28, 2024 7:54am [...] Will Yes February 27 4:59am Power of Can Doffer Yes February 27, 2018 4:59am Advance Directive Response Recorded Date/ Time Living Will Yes February 27 5:59am Power of Can Doffer Yes February 27, 2018 5:59am Summary Purpose [...] ized section and content) DATE CREATED AUTHOR 11/05/2024 [facility] FOR RECORDS PERTAINING TO PATIENTS WHO ARE [...] BE BASED ON THE PRIMARY CLINICAL RECORDS. [facility]. provides no warranty or guarantee of the accuracy or completeness of information in this document.
--- NOTE | 2024-11-05 22:23 | CT_ITS ---
PROCEDURE: CTA ABD/PELVIS W/WO CONTRAST 11/05/2024 REASON FOR EXAM: GI BLEED TECHNIQUE: Procedure Code: [id number] Modality: CT Procedure: CTA ABD/PELVIS W/WO CONTRAST Multiplanar Sagittal and Coronal images were obtained. CONTRAST: OMNIPAQUE 350 VOLUME: 100 mL One or more dose reduction techniques were used (e.g., Automated exposure control, adjustment of the mA and/or kV according to patient size, use of iterative reconstruction technique). RADIATION DOSE SUMMARY: CTDlvol: 23.28 mGy DLP: 1221 mGycm COMPARISON: CT scan on 06/18/2024. FINDINGS: Unchanged small sliding hiatal hernia. Diffuse thickening of the stomach, probably gastritis. Pneumoperitoneum is noted, suspicious for gastric perforation. No CT evidence of active bleeding during the time of the exam. Unchanged bilateral nonobstructing renal stones with the largest measuring 3 mm. Unchanged scattered bilateral simple renal cysts. Unchanged benign chronic nodularity of the left adrenal gland. Uncomplicated colonic diverticulosis, unchanged. Unchanged a few bilateral scattered less than 5 mm pulmonary nodules. Mild calcified atheromatous plaques of the aorta. Unchanged diffuse spondylosis. Unchanged prominent chronic calcifications adjacent to the left ischial tuberosity. Unchanged well-defined sclerotic lesion of the left sacral alum. Normal liver. Normal gallbladder and extrahepatic biliary system. Normal spleen. Normal pancreas. Normal bilateral adrenal glands. Normal size of the right kidney. There is no right renal mass. There is no right hydronephrosis. Normal visualized right ureter. Normal size of the left kidney. There is no left renal mass. There is no left hydronephrosis. Normal visualized left ureter. Normal small intestine. The appendix is visualized and appears normal. There is no demonstrated peritoneal fluid. Normal inferior vena cava. Normal retroperitoneum. Normal urinary bladder. There is no pelvic mass lesion or lymphadenopathy. There is no pelvic fluid. Fat containing umbilical hernia without incarceration. CT/CTA Abd/Pelvis W/WO Contrast IMPRESSION: Unchanged small sliding hiatal hernia. Diffuse thickening of the stomach, probably gastritis. Pneumoperitoneum is noted, suspicious for gastric perforation. No CT evidence of active bleeding during the time of the exam. Unchanged bilateral nonobstructing renal stones with the largest measuring 3 mm . Unchanged scattered bilateral simple renal cysts. Unchanged benign chronic nodularity of the left adrenal gland. Uncomplicated colonic diverticulosis, unchanged. Unchanged a few bilateral scattered less than 5 mm pulmonary nodules. Mild calcified atheromatous plaques of the aorta. Unchanged diffuse spondylosis. Unchanged prominent chronic calcifications adjacent to the left ischial tuberos ity. Unchanged well-defined sclerotic lesion of the left sacral alum. I discussed the findings with Dr. Pineda Laguerre in the emergency department at 1 2:28 a.m. EST. Reading Location: [facility] [address]
[2024-11-05 22:51] LABS: Hematocrit 39.4 % (37-47); Hemoglobin 13.3 g/dL (12.0-15.0); Immature Granulocytes Count 0.060 X10^3/uL (0.0-0.0); Mean Corp Hgb Conc 33.8 g/dL (32-36); Mean Corpuscular Volume 82.6 fL (81-99); Mean Platelet Vol. 10.1 fl (6.2-12.0); NRBC Flagged by Analyzer 0 % (0-5); POSITIVE DIFFERENTIAL YES; Platelet Count 231 K/mm3 (150-450); RBC Distribution Width CV 13.2 % (11.6-14.6); RBC Distribution Width SD 39.8 fl (35.1-43.9); Red Blood Count 4.77 M/mm3 (4.2-5.4); White Blood Count 11.3 K/mm3 (4.4-11.0)
[2024-11-05] MEDS: 0.9% Normal Saline (1000mL) 1,000 ML 999 ML IV (22:51)
[2024-11-05] MEDS: Pantoprazole Sodium 40 MG in 0.9% Normal Saline (100mL MB+) 100 ML 300 MG IV (22:52)
[2024-11-05] MEDS: Lidocaine 2% Viscous15 ML UDC 15 ML PO (22:54)
[2024-11-05 23:08] LABS: Prothrombin Time (Protime)PT. 13.1 SECONDS (11.7-14.9)
[2024-11-05 23:09] LABS: Partial Thromboplast Time 24.6 Seconds (24.1-36.2)
[2024-11-05 23:16] VITALS: BP 110/82; PULSE 66; RESP 16; O2SAT 98
[2024-11-05 23:18] LABS: AST(SGOT) 27 U/L (<=31); Alanine Aminotransfer ALT/SGPT 9 U/L (<=34); Albumin, Serum 4.5 g/dL (3.4-4.8); Alkaline Phosphatase 69 U/L (35-104); Anion Gap 14 (5-15); BUN 13 mg/dL (4-19); BUN/Creat Ratio 19.6 RATIO (10-20); Bilirubin, Direct 0.22 mg/dL (0.00-0.30); Calcium,Total 9.9 mg/dL (7.6-11.0); Carbon Dioxide 24.0 mmol/L (21.0-32.0); Chloride 101 mmol/L (98-108); Estimated Creatinine Clearance 76.67 ml/min (50-250); Globulin 2.8 g/dL (2.2-4.2); Glucose 127 mg/dL (70-99); Potassium 4.1 mmol/L (3.3-5.1)
--- NOTE | 2024-11-05 23:35 | RAD_ITS ---
PROCEDURE: NECK FOR SOFT TISSUE 11/05/2024 REASON FOR EXAM: ? ESOPHAGEAL PERFORATION AFTER PROCEDURE TECHNIQUE: Procedure Code: RADNE Modality: DX Procedure: NECK FOR SOFT TISSUE COMPARISON: None. FINDINGS: No definite gas lucencies in the soft tissues of the neck and the upper mediastinum. Normal epiglottis, without demonstrated thickening or altered morphology. Normal visualized nasopharynx, oropharynx, hypopharynx. Normal prevertebral soft tissue structures. Normal visualized subglottic tracheal air column. Diffuse spondylosis. There is no demonstrated soft tissue abnormality. RAD/Neck for Soft Tissue IMPRESSION: No definite gas lucencies in the soft tissues of the neck and the upper mediast inum. Reading Location[facility]
[2024-11-06 01:00] VITALS: BP 147/73; PULSE 80; RESP 16; O2SAT 98
--- NOTE | 2024-11-06 01:01 | CT_ITS ---
PROCEDURE: CHEST WITHOUT CONTRAST 11/06/2024 REASON FOR EXAM: ? FREE AIR TECHNIQUE: Chest CT without contrast. Coronal and Sagittal reconstruction series were provided. One or more dose reduction techniques were used (e.g., Automated exposure control, adjustment of the mA and/or kV according to patient size, use of iterative reconstruction technique RADIATION DOSE SUMMARY: CTDlvol: 18.09 mGy DLP: 682 mGycm COMPARISON: None. FINDINGS: No pneumomediastinum is noted. No oral contrast leakage from the esophagus. Small sliding hiatal hernia. Mild diffuse thickening of the distal esophagus, probably mild reflux esophagitis. Scattered right thyroid lobe nodules without tracheal narrowing or deviation. Normal unenhanced main pulmonary artery and right and left pulmonary arteries. Normal bilateral peripheral pulmonary arteries. Normal thoracic aorta and visualized great vessels. There is no demonstrated aortic aneurysm. Normal heart and pericardium. Normal mediastinum. Normal hilar regions. Normal visualized trachea and bronchi. Normal pleura. CT/Chest without Contrast IMPRESSION: Coronary artery calcification (CAC) is is present No pneumomediastinum is noted. No oral contrast leakage from the esophagus. Small sliding hiatal hernia. Mild diffuse thickening of the distal esophagus, probably mild reflux esophagit is. Scattered right thyroid lobe nodules without tracheal narrowing or deviation. Reading Location: [facility]
--- NOTE | 2024-11-06 01:01 | CT_ITS ---
PROCEDURE: SOFT TISSUE NECK WITHOUT CONTR 11/06/2024 REASON FOR EXAM: ? FREE AIR TECHNIQUE: Procedure Code: CTNE Modality: CT Procedure: SOFT TISSUE NECK WITHOUT CONTR CONTRAST: None. One or more dose reduction techniques were used (e.g., Automated exposure control, adjustment of the mA and/or kV according to patient size, use of iterative reconstruction technique). RADIATION DOSE SUMMARY: CTDlvol: 24.7 mGy DLP: 290 mGycm COMPARISON: Radiograph on 11/05/2024. FINDINGS: Hypodense right thyroid lobe nodule measuring 2.4 cm. No tracheal narrowing or deviation is seen. 7 mm calcified right thyroid lobe nodule. Normal bilateral parotid glands. Normal bilateral risk management intern spaces. Normal bilateral parapharyngeal spaces. Normal bilateral carotid spaces. Normal bilateral sublingual and submandibular glands. Normal sublingual and submandibular spaces. Normal visualized nasopharynx. Normal retropharyngeal space. Normal perivertebral space. Normal visualized bilateral faucial tonsils. The visualized tongue, tongue base and oropharynx are normal. The visualized cervical lymph nodes (levels I-) are within normal size limits, and maintain normal morphology. Normal epiglottis, bilateral vallecula and hypopharynx. The pre-epiglottic and paraglottic adipose spaces are normal. Normal visualized bilateral piriform sinuses, aryepiglottic folds, vocal cords, and arytenoid-cricoid articulations. Normal subglottic trachea. Normal visualized pulmonary apices. Normal visualized paranasal sinuses. Mild diffuse spondylosis of the visualized cervical spine. CT/Soft Tissue Neck without Contr IMPRESSION: No gas density in the soft tissues of the neck. Reading Location: [place] [id number]
--- NOTE | 2024-11-06 01:08 | CT_ITS ---
PROCEDURE: ABDOMEN/PEL W ORAL CONT ONLY 11/06/2024 REASON FOR EXAM: ? GASTRIC PERFORATION TECHNIQUE: Procedure Code: [id number] Modality: CT Procedure: ABDOMEN/PEL W ORAL CONT ONLY Noncontrast technique limits evaluation of the abdominal and pelvic viscera. Coronal and Sagittal reconstruction series were provided. One or more dose reduction techniques were used (e.g., Automated exposure control, adjustment of the mA and/or kV according to patient size, use of iterative reconstruction technique). RADIATION DOSE SUMMARY: CTDlvol: 24.18 mGy DLP: 1202 mGycm COMPARISON: CT scan on 11/05/2024. FINDINGS: Unchanged small sliding hiatal hernia. Diffuse thickening of the stomach, probably gastritis. Pneumoperitoneum is noted, suspicious for gastric perforation. No CT evidence of oral contrast leakage from the stomach or proximal small bowels. Unchanged bilateral nonobstructing renal stones with the largest measuring 3 mm. Unchanged scattered bilateral simple renal cysts. Unchanged benign chronic nodularity of the left adrenal gland. Uncomplicated colonic diverticulosis, unchanged. Heterogeneous nephrogram with retained contrast in the right renal cortex, nonspecific finding which can be seen in renal parenchymal disease. Unchanged a few bilateral scattered less than 5 mm pulmonary nodules. Mild calcified atheromatous plaques of the aorta. Unchanged diffuse spondylosis. Unchanged prominent chronic calcifications adjacent to the left ischial tuberosity. Unchanged well-defined sclerotic lesion of the left sacral alum. Normal liver. Normal gallbladder and extrahepatic biliary system. Normal spleen. Normal pancreas. Normal bilateral adrenal glands. Normal size of the right kidney. There is no right renal mass. There is no right hydronephrosis. Normal visualized right ureter. Normal size of the left kidney. There is no left renal mass. There is no left hydronephrosis. Normal visualized left ureter. Normal small intestine. The appendix is visualized and appears normal. There is no demonstrated peritoneal fluid. Normal inferior vena cava. Normal retroperitoneum. Normal urinary bladder. There is no pelvic mass lesion or lymphadenopathy. There is no pelvic fluid. Fat containing umbilical hernia without incarceration. CT/Abdomen/Pel W ORAL Cont Only IMPRESSION: Unchanged small sliding hiatal hernia. Diffuse thickening of the stomach, probably gastritis. Pneumoperitoneum is noted, suspicious for gastric perforation. No CT evidence of oral contrast leakage from the stomach or proximal small stephane ls. Unchanged bilateral nonobstructing renal stones with the largest measuring 3 mm . Unchanged scattered bilateral simple renal cysts. Unchanged benign chronic nodularity of the left adrenal gland. Uncomplicated colonic diverticulosis, unchanged. Heterogeneous nephrogram with retained contrast in the right renal cortex, nons pecific finding which can be seen in renal parenchymal disease. Unchanged a few bilateral scattered less than 5 mm pulmonary nodules. Mild calcified atheromatous plaques of the aorta. Unchanged diffuse spondylosis. Unchanged prominent chronic calcifications adjacent to the left ischial tuberos ity. Unchanged well-defined sclerotic lesion of the left sacral alum, benign and chr onic. Dr Pineda Laguerre is aware of the presence of pneumoperitoneum at the time of int erpretation. [facility]
--- NOTE | 2024-11-06 02:52 | EDS_ITS ---
HPI History of Present Illness Chief Complaint: GI Bleed Informant: patient and friend Narrative Narrative: Patient is a 74-year-old female with past medical history of hypertension as well as reported severe gastritis but she takes no medication for it. She stat es that she had a D&C and lithotripsy performed today. She states she was informed after the surgery that her intubation was traumatic and could create irritation in her throat but was otherwise uneventful. She states she was doing well in PACU and discharged home. She states after being discharged home she had 3 bouts of vomiting and that it appeared bloody in nature. She denies any history of bleeding disorder or blood thinner use. She states that she contacted one of her surgeons and based on the reported symptoms was advised to come to the ER for evaluation. Patient states there is no return of vomiting since arrival to the ER. She also denies any bloody or dark stool. PFSH PFSH Medical History Hypertension History of stress test Vaginal atrophy Wears glasses Post-menopausal Bladder disease Back pain Gastric reflux Non-smoker Home Medications ?Medication ?Instructions ?Recorded ?Last Taken ?Type estradiol 0.01% (0.1 mg/gram) 1 g vaginal 3XW 06/26/24 11/01/24 History vaginal cream solifenacin 5 mg tablet 5 mg PO QDAY 06/26/24 History Lactobacillus acidophilus 250 500 mmu cells PO DAILY 0 09/10/24 11/04/24 History million cell capsule (Probiotic Acidophilus) ascorbic acid (vitamin C) 500 mg 500 mg PO DAILY 09/1011/04/24 History chewable tablet (C-500) amlodipine 10 mg tablet 10 mg PO QDAY 10/28/2411/05 History ondansetron 4 mg disintegrating 4 mg PO Q8H PRN nausea and 11/05/24 Unknown Rx tablet vomiting #10 tabs oxycodone-acetaminophen 5 mg-325 1 tab PO Q8H PRN pain 3 days #10 11/05/24 Unknown Rx mg tablet tabs pantoprazole 40 mg tablet,delayed 40 mg PO DAILY #30 t abs 11/06/24 Unknown Rx release (Protonix) Allergy/AdvReac Type Severity Reaction Status Date / Time No Known Allergies Allergy Verified 11/05/24 21:16 Family History Mother Heart disease Father History of kidney cancer Surgical History Hx of tonsillectomy Social History number of children: 0 Smoking Status: Never smoker alcohol intake: current Alcohol type: wine substance use type: does not use what type of physical activity do you participate in: none seatbelt use: always do you feel safe at home: Yes additional social history: ROS ROS ED Constitutional Constitutional ED: Denies chills or fever(s) Eyes Eyes: Denies change in vision ENT ENT ED: Reports sore throat Cardiovascular Cardiovascular: Denies chest pain, palpitations or racing heartbeat Respiratory/Chest Respiratory/Chest: Denies cough or dyspnea Gastrointestinal Gastrointestinal: Reports abdominal pain, nausea, vomiting and other Details: Positive hematemesis ; Denies diarrhea or melena Genitourinary Genitourinary ED: Denies dysuria or hematuria Musculoskeletal Musculoskeletal: Denies back pain or myalgias Integumentary Denies rash Neurologic Neurologic: Denies headache(s), paresthesias or weakness Hematologic/Lymphatic Hematologic/Lymphatic: Denies easy bleeding or easy bruising EXAM Physical Exam Const Vital Signs: 11/05/24 21:12 11/05/24 23:16 11/06/24 01:00 Temperature 97.9 F Temperature Source Temporal Pulse Rate 95 66 80 Respiratory Rate 16 16 16 Blood Pressure 147/78 H 110/82 H 147/73 H Blood Pressure Mean 101 91 97 Pulse Ox 96 98 98 Oxygen Delivery Method Room Air Room Air 11/06/24 03:03 Temperature 98 F Temperature Source Pulse Rate 81 Respiratory Rate 16 Blood Pressure 144/86 H Blood Pressure Mean 105 Pulse Ox 94 Oxygen Delivery Method Positive well nourished, well developed and obese General Appearance ED: well developed; Negative for pallor Nutritional Appearance: obese HEENT Reports moist mucous membranes HEENT Narrative: No tongue or lip swelling no oral lesions no airway edema or compromise No secondary findings to suggest infection in the posterior pharynx No dried blood or active bleeding noted Eyes PERRL and EOMs intact bilaterally General Eye ED: Negative for pale conjunctiva or scleral icterus Neck supple Neck Narrative: No subcutaneous emphysema palpated Chest Wall palpation of chest normal Resp normal respiratory effort and clear to auscultation bilaterally Cardio regular rate and regular rhythm Rate: other Other Details: Radial and carotid pulses are equal and symmetric GI non-distended and no masses GI Narrative: Abdomen is soft and nondistended with normal active bowel sounds. There is mild diffuse pain in lower abdomen consistent with her recent surgical procedures but no voluntary guarding or rigidity or pulsatile mass. No peritoneal signs Auscultation: normoactive bowel sounds Palpation: soft Extremity normal to inspection Neuro oriented x3, CN's II-XII intact bilaterally and no sensory deficits noted Sensorium / Orientation: alert Motor Exam: strength 5/5 throughout Psych mental status grossly normal Skin no rashes or lesions noted General Skin Exam: Negative for jaundice or pallor MDM MDM MDM Narrative Medical decision making narrative: The patient arrived to the ER with stable vitals. She reported 3 episodes of hematemesis at home. She denies history of bleeding disorder or blood thinner use and states that the bouts of vomiting blood have resolved after arrival to the ER. In order to ensure the patient does not have acute blood loss anemia or a upper GI bleed from potential gastric ulcer or potential postoperative complication I did elect to perform basic laboratory studies with CT a of the abdomen pelvis to assess for areas of active bleeding and a soft tissue neck x- ray to assess for free air. The x-ray revealed no obvious signs of free air which correlate with her exam. Blood work reveals no signs of acute blood loss anemia and her BUN is normal going against an upper GI bleed. The CTA revealed no signs of active bleeding but it did show air with in the abdominal cavity consistent with pneumoperitoneum. Based on this finding I discussed the case with general surgeon Dr. Calixto. She reviewed the CT scan and does note the air but does not see any obvious gastric or intestinal perforation. With a history of her recent surgery and reported traumatic intubation she does recommend CTs of the neck and chest be obtained to check for pneumomediastinum or esophageal rupture. She also recommends that the patient have a repeat CT scan of her abdomen but this time with oral contrast to see if there is active extravasation. CTs of the neck and chest revealed no signs of free air. CT of the abdomen with oral contrast shows the persistent pneumoperitoneum but no extravasation of the contrast through the stomach or proximal intestine. The case was discussed with her GLOBAL MARKETING OPERATIONS MANAGER Dr. Payan and she does report that there is a very superficial/minor fundal perforation during the procedure. This could account for the small amount of free air noted on CT scan. However she states that there is no need for intervention for this as the area should spontaneously resolve. She did reiterate that she was present during the intubation and that it was traumatic and could have led to tracheal or esophageal bleeding. The case was once more discussed with Dr. Calixto once more and the results of the CT neck chest and down abdomen with oral contrast were given to her. She states that based on the fact there is no extravasation and there is a known reason for the pneumoperitoneum with the fundal perforation reported that she agrees there is very little likelihood that the patient has a true gastric perforation. Especially as her pain is lower and she has had no further symptoms while in the ER. Therefore she does not recommend any surgical intervention at this time. As the patient has remained hemodynamically stable in the ER for approximately 6 hours has normal laboratory studies and there is a reason to explain the bout of hematemesis as this was most likely from traumatic intubation as well as the pneumoperitoneum as this was from the small fundal perforation and there is no need for any type of surgical intervention regarding this she is otherwise safe for discharge. She will be placed on Protonix/PPI to help prevent any further reoccurrence of her gastric symptoms History & Record Review Discussion w/independent historian: Patient and Friend Lab Data Attestation: I reviewed the patient's lab results. Labs: Laboratory Results - last 24 hr 11/05/24 22:40 WBC 11.3 H RBC 4.77 Hgb 13.3 Hct 39.4 MCV 82.6 MCH 27.9 MCHC 33.8 RDW Std Deviation 39.8 RDW Coeff of Alesha 13.2 Plt Count 231 MPV 10.1 Immature Gran % (Auto) 0.500 Neut % (Auto) 91.0 H Lymph % (Auto) 5.2 L [place] % (Auto) 3.2 Eos % (Auto) 0.0 Baso % (Auto) 0.1 Absolute Neuts (auto) 10.3 H Absolute Lymphs (auto) 0.59 L Nucleated RBC % 0 PT 13.1 INR 1.0 APTT 24.6 Sodium 139 Potassium 4.1 Chloride 101 Carbon Dioxide 24.0 Anion Gap 14 BUN 13 Creatinine 0.68 L Estim Creat Clear Calc 76.67 Est GFR (MDRD) Non-Af 93 BUN/Creatinine Ratio 19.6 Glucose 127 H Lactic Acid 1.8 Calcium 9.9 Total Bilirubin 0.51 Direct Bilirubin 0.22 AST 27 ALT 9 Alkaline Phosphatase 69 Total Protein 7.3 Albumin 4.5 Globulin 2.8 Radiography Diagnostic Testing: Clinical Impression(s) from Imaging Studies Abdomen/Pelvis CTA 11/05/24 22:23 IMPRESSION: Unchanged small sliding hiatal hernia. Diffuse thickening of the stomach, probably gastritis. Pneumoperitoneum is noted, suspicious for gastric perforation. No CT evidence of active bleeding during the time of the exam. Unchanged bilateral nonobstructing renal stones with the largest measuring 3 mm. Unchanged scattered bilateral simple renal cysts. Unchanged benign chronic nodularity of the left adrenal gland. Uncomplicated colonic diverticulosis, unchanged. Unchanged a few bilateral scattered less than 5 mm pulmonary nodules. Mild calcified atheromatous plaques of the aorta. Unchanged diffuse spondylosis. Unchanged prominent chronic calcifications adjacent to the left ischial tuberosity. Unchanged well-defined sclerotic lesion of the left sacral alum. I discussed the findings with Dr. Pineda Laguerre in the emergency department at 12:28 a.m. EST. Reading Location: [place] [id number] Soft Tissue Neck X-Ray 11/05/24 23:35 IMPRESSION: No definite gas lucencies in the soft tissues of the neck and the upper mediastinum. Reading Location: [place] [address] 11/06/24 01:01 IMPRESSION: Coronary artery calcification (CAC) is is present No pneumomediastinum is noted. No oral contrast leakage from the esophagus. Small sliding hiatal hernia. Mild diffuse thickening of the distal esophagus, probably mild reflux esophagitis. Scattered right thyroid lobe nodules without tracheal narrowing or deviation. Reading Location: [place] [address] 11/06/24 01:01 IMPRESSION: No gas density in the soft tissues of the neck. Reading Location: [place] [address] 11/06/24 01:08 IMPRESSION: Unchanged small sliding hiatal hernia. Diffuse thickening of the stomach, probably gastritis. Pneumoperitoneum is noted, suspicious for gastric perforation. No CT evidence of oral contrast leakage from the stomach or proximal small bowels. Unchanged bilateral nonobstructing renal stones with the largest measuring 3 mm. Unchanged scattered bilateral simple renal cysts. Unchanged benign chronic nodularity of the left adrenal gland. Uncomplicated colonic diverticulosis, unchanged. Heterogeneous nephrogram with retained contrast in the right renal cortex, nonspecific finding which can be seen in renal parenchymal disease. Unchanged a few bilateral scattered less than 5 mm pulmonary nodules. Mild calcified atheromatous plaques of the aorta. Unchanged diffuse spondylosis. Unchanged prominent chronic calcifications adjacent to the left ischial tuberosity. Unchanged well-defined sclerotic lesion of the left sacral alum, benign and chronic. Dr Pineda Laguerre is aware of the presence of pneumoperitoneum at the time of interpretation. Reading Location: [place] [address] Soft tissue neck x-ray as interpreted by the emergency medicine physician reveals no free air Management Discussion w/another healthcare provider: Real Estate Administrative Assistant and Radiologist Discharge Plan Triage Chief Complaint: GI Bleed ED Provider: Pineda Laguerre Dx/Rx/DC Orders Clinical Impression: Hematemesis, Hypertension, Gastritis Instructions: ED Gastritis (Adult), ED Upper GI Bleeding (Stable) Prescriptions: New pantoprazole [Protonix] 40 mg tablet,delayed release (DR/EC) 40 mg PO DAILY Qty: 30 2RF No Action estradiol 0.01 % (0.1 mg/gram) cream 1 g vaginal 3XW solifenacin 5 mg tablet 5 mg PO QDAY amlodipine 10 mg tablet 10 mg PO QDAY Probiotic Acidophilus 250 million cell capsule 500 mmu cells PO DAILY ascorbic acid (vitamin C) [C-500] 500 mg tablet,chewable 500 mg PO DAILY oxycodone-acetaminophen 5-325 mg tablet 1 tab PO Q8H PRN (Reason: pain) 3 Days Qty: 10 0RF ondansetron 4 mg tablet,disintegrating 4 mg PO Q8H PRN (Reason: nausea and vomiting) Qty: 10 0RF Primary Care Provider: Emerson Dotson Referrals: Emerson Dotson DO [Primary Care Provider, Family Practice] Activity Restrictions/Additional Instructions: Your workup today indicates that you had a small amount of bleeding from the intubation during your surgery. However the CT scans show no sign of rupture to your throat or trachea or perforation through the stomach or intestine. Please continue all the medications as directed by your doctor. Add Protonix daily to help reduce the severity of gastritis/GERD. Return to the ER should you have any further concerns Print Language: Swedish Disposition Disposition: Home, Self Care Discharge Date/Time: 11/06/24 03:03
[2024-11-06 03:03] VITALS: BP 144/86; PULSE 81; RESP 16; TEMP 36.6; O2SAT 94
== END 2024-11-06 03:03 | disposition home or self-care (01) ==
PROVIDERS: Emergency Provider Emergency Medicine; PCP Family Medicine; Visit Provider Emergency Medicine
DX: K29.71 Gastritis, unspecified, with bleeding (principal); I10 Essential (primary) hypertension; K21.9 Gastro-esophageal reflux disease without esophagitis; Z79.899 Other long term (current) drug therapy; E66.9 Obesity, unspecified
CPT/HCPCS: 70360; 70490; 71250; 74174; 74176; 80048; 80076; 83605; 85025; 85610; 85730; 96365; 96368; 96375; 99284; Q9967; A4216; J2405

== ENCOUNTER → 2024-11-25 | Outpatient (CLI) | payer MEDICARE, OTHER, SELFPAY | END | disposition home or self-care (01) | LOC: MTRAD 10:51 | PROVIDERS: PCP Family Medicine; Referring Provider Urology; Visit Provider Urology | DX: N20.0 Calculus of kidney (principal) | CPT/HCPCS: 74018 ==